=== PATIENT | male | born 1955 | race Caucasian/White ===

== ENCOUNTER 2020-08-28 15:30 | Observation (INO) | payer SELFPAY ==
[2020-08-28] VITALS (11 sets, daily range): BP systolic 151–216; BP diastolic 75–97; PULSE 58–67; RESP 14–18; TEMP 36.4–36.6; O2SAT 95–98; BMI 31.1
--- NOTE | 2020-08-28 15:46 | ED_ITS ---
HPI - General Adult General Chief complaint: Dizziness Stated complaint: dizzy with change of position Time Seen by Provider: 08/28/20 15:45 Source: patient and EMS Mode of arrival: EMS Limitations: no limitations History of Present Illness HPI narrative: 65-year-old gentleman with no significant medical history who has not seen a doctor for a number of years woke up this morning dramatically dizzy to the point he was unable to sit up in bed. He has never had similar episodes. He describes no headache, fevers, chest pain, dyspnea, abdominal pain. He notes no numbness or weakness, has not complained of any cognitive dysfunction and does not have any speech fluency issues. The dizziness progressed to the p oint that he had a couple of episodes of emesis and has gotten slightly worse over the course of the day. Related Data Allergies Allergy/AdvReac Type Severity Reaction Status Date / Time No Known Drug Allergies Allergy Verified 08/28/20 16:49 Review of Systems Review of Systems Narrative: Remainder of complete review of systems is otherwise unremarkable except for that included in the HPI. Patient History Social History Smoking Status: Never smoker Smoking Status: Never smoker alcohol intake frequency: 0-2 drinks per day Alcohol type: hard liquor Exam Narrative Exam Narrative: General: Pale, moderate distress, most comfortable on his left side. Able to give a complete and coherent history. Well-nourished well- developed HEENT: Moist mucous membranes, normal sclera with reactive pupils, slight rotatory nystagmus in all head positions. This is not worsened or alleviated with positional changes Neck: supple Respiratory: Lungs are clear to auscultation, no wheezing no rales no rhonchi. Full and symmetrical air movement Cardiac: Regular rate and rhythm no murmurs no bruits Abdomen: Soft, nontender, good bowel tones, no flank pain Skin: Warm and dry, no rashes Neurologic: Grossly neurologically intact with no obvious asymmetries or abnormalities aside from the nystagmus appreciated above NIH=0 Extremities: No trauma, well perfused Psych: Cooperative, appropriate insight and affect Initial Vital Signs Initial Vital Signs: Vital Signs Temperature 97.8 F 08/28/20 15:33 Pulse Rate 60 08/28/20 15:33 Respiratory Rate 18 08/28/20 15:33 Blood Pressure 202/82 H 08/28/20 15:33 Pulse Oximetry 98 08/28/20 15:33 Course Orders Ordered: ED Orders 08/28/20 15:00 Complete Blood Count AUTO DIFF Stat Comprehensive Metabolic Panel Stat Partial Thromboplastin Time Stat Prothrombin Time INR Stat Troponin & CK Cardiac Panel Stat 08/28/20 15:46 EKG-12 Lead Stat 08/28/20 15:54 CT angio head and neck Stat 08/28/20 15:56 Urinalysis and Microscopic Stat Urine Drug Screen, Rapid Stat EKG-12 Lead Stat 08/28/20 15:58 CT head/brain w con Stat 08/28/20 16:23 COVID19 - ADMIT ([facility] [employer] swab/PCR) Stat 08/28/20 16:42 MR head/brain wo/w con Stat MR stroke Stat Sodium Chloride (Normal Saline 0.9%) 1,000 mls @ 150 mls/hr IV CONT JAYLAN Last Admin: 08/28/20 16:22 Dose: 150 mls/hr Documented by: Discontinued Medications Lorazepam (Lorazepam 2 Mg/Ml Inj) 1 mg IV NOW ONE Stop: 08/28/20 17:01 Ondansetron HCl (Ondansetron 4 Mg/2 Ml Inj) 4 mg IV NOW ONE Stop: 08/28/20 15:57 Last Admin: 08/28/20 16:22 Dose: 4 mg Documented by: Vital Signs Vital signs: Vital Signs - 8 hr 08/28/20 15:33 08/28/20 15:43 08/28/20 16:12 Temperature 97.8 F Pulse Rate 60 58 L 64 Respiratory Rate 18 Blood Pressure 202/82 H Pulse Oximetry 98 96 96 08/28/20 16:13 08/28/20 16:30 Temperature Pulse Rate 65 66 Respiratory Rate 14 Blood Pressure 209/93 H 196/91 H Pulse Oximetry 95 95 Medical Decision Making Medical Records Medical records reviewed: Yes I reviewed the patient's medical records. Lab Data Lab results reviewed: Yes I reviewed the patient's lab results. Result diagrams: 08/28/20 15:00 08/28/20 15:00 Labs: Lab Results 08/28/20 08/28/20 08/28/20 Range/Units 15:00 15:00 15:00 WBC 11.8 H (4.5-11.0) X10^3/uL RBC 5.25 (4.5-5.9) X10^6/uL Hgb 15.4 (13.5-17.5) g/dL Hct 45.7 (41-53) % MCV 87.0 (80-100) fL MCH 29.3 (26-34) PG MCHC 33.7 (30-36) % RDW 13.1 (11.6-14.8) % Plt Count 235 (150-400) X10^3/uL Neut % (Auto) 80.2 H (50-75) % Lymph % (Auto) 13.3 L (25-40) % [place] % (Auto) 5.9 (3-14) % Eos % (Auto) 0.2 L (2-4) % Baso % (Auto) 0.4 (0-2) % Neut # (Auto) 9500 H (7897-1341) /uL Lymph # (Auto) 1600 (5677-8627) /uL [place] # (Auto) 700 (0-900) /uL Eos # (Auto) 0 (0-450) /uL Baso # (Auto) 0 (0-100) /uL PT 10.6 (10.1-12.7) SECONDS INR 0.9 (0.9-1.3) APTT 33 (26.4-36.2) SECONDS Sodium 142 (137-145) mmol/L Potassium 3.9 (3.4-5.1) mmol/L Chloride 106 (98-107) mmol/L Carbon Dioxide 26 (22-32) mmol/L BUN 18 (9-20) mg/dL Creatinine 0.84 (0.66-1.25) mg/dL Estimated GFR > 60.0 (>60) mL/min BUN/Creatinine Ratio 21.4 (6-22) Glucose 115 H (80-110) mg/dL Calcium 9.7 (8.4-10.2) mg/dL Total Bilirubin 0.7 (0.2-1.3) mg/dL AST 37 (17-59) IU/L ALT 26 (<50) IU/L Alkaline Phosphatase 78 (38-126) U/L Total Creatine Kinase 64 (55-170) U/L CK-MB (CK-2) TNP CK-MB (CK-2) Rel Index TNP Troponin I < 0.012 (0.01-0.034) ng/mL Total Protein 7.7 (6.3-8.2) g/dL Albumin 4.3 (3.5-5.0) g/dL Globulin 3.4 (1.7-4.1) g/dL Albumin/Globulin Ratio 1.3 (1.0-2.8) Point of Care Testing Glucose POC 105 Point of care testing: Point of Care Testing Glucose POC [address] angiogram head neck: Radiologist's Impression: FINDINGS: Image quality: Excellent. CSF spaces: Basal cisterns are patent. No extra-axial fluid collections. The ventricles are symmetric in size and shape. Brain: No intracranial bleeds or masses. There is mild cerebral volume loss for age, with resultant ventricular and sulcal prominence. There are mild periventricular and deep white matter chronic small vessel ischemic changes. There is intracranial internal carotid artery atherosclerosis. Skull and face: Calvarium and visualized facial bones appear intact, without suspicious lesions. Sinuses: Visualized sinuses and mastoids are clear. IMPRESSION: 1. No acute intracranial abnormalities. 2. Cerebral volume loss and chronic microvascular ischemic changes. Dictated by: Tad Cronin M.D. on 08/28/2020 at 16:19 FINDINGS: Image quality: Excellent. BRAIN: CSF spaces: Ventricles are normal in size and shape. Basal cisterns are patent. No extra-axial fluid collections. Brain: No midline shift. No intracranial bleeds or masses. Ching-white matter interface appears intact. Skull and face: Calvarium and facial bones appear intact, without suspicious lesions. Orbits appear normal. Sinuses: Sinuses and mastoids are clear. HEAD CT ANGIOGRAPHY: Anterior circulation: Intracranial internal carotid arteries are normal in size and flow. The flow within the paired anterior cerebral arteries is normal and symmetric. The flow within the middle cerebral arteries is normal and symmetric. The anterior communicating artery is seen. No aneurysms are seen. Posterior circulation: The left vertebral artery is diminutive and ends in PICA. The right vertebral artery is widely patent. The basilar artery is widely patent. Flow within the posterior cerebral arteries is normal and symmetric. No aneurysms are seen. NECK CT ANGIOGRAPHY: Carotid system: The great vessels demonstrate a conventional anatomy as they arise from the aortic arch. The origins of the common carotid arteries appear patent. The common carotid arteries demonstrate normal caliber and courses. The bifurcation regions are both widely patent. The internal carotid arteries demonstrate normal calibers and courses. Posterior circulation: The left vertebral artery is diffusely diminutive and ends in PICA. Right vertebral artery is dominant and widely patent. The basilar artery is widely patent. Soft tissues: Visualized neck soft tissues demonstrate no suspicious abnorm alities. There is a 2 cm left thyroid nodule. Bones: No suspicious bony lesions. Visualized cervical spine appears normally aligned. IMPRESSION: 1. No evidence acute stroke, hemorrhage, or mass. 2. Normal variant anatomy in which the left vertebral artery is diminutive and ends in PICA. Otherwise unremarkable CTA head with no evidence of stenosis, aneurysm, occlusion, or focal filling defect. 3. Widely patent internal carotids. Comment: Findings were discussed with Dr. Traylor at the time of study dictation on 08.28.20 at 16:33 hours. Any quantitative measurements of stenosis were performed using NASCET criteria. Dictated by: Nba Garcia M.D. on 08/28/2020 at 16:26 ECG Data Attestation: I personally reviewed and interpreted this ECG as follows: Interpretation: Sinus rhythm at a rate of 60 Left axis deviation, meeting criteria for left ventricular hypertrophy Lateral T-wave inversion J-point elevation secondary to LVH anteriorly No comparison EKGs MDM Narrative Medical decision making narrative: 65-year-old gentleman with no previously diagnosed medical issues presents with severe vertigo upon waking up with significant nystagmus on clinical exam that is not positional. Certainly BP is in the differential however concern for brainstem stroke is my initial consideration. His EKG does have left ventricular hypertrophy with some latera ST changes and presumably he does have a history of the hypertension that has been non diagnosed and untreated. Labs are otherwise reassuring with a normal troponin. Initial CT scan of the head does not show acute bleeding and CTA does not show acute stroke and has a normal variant anatomy with the left vertebral artery being diminutive and ending in the PICA. Findings were reviewed with patient. After fluids and Zofran he still has significant dizziness to the point he is unable to stand up but is not to head rotation. His nystagmus is now more noticeable with his right-sided gaze. Will give him Afrin. Added and see if that helps with more of the vertigo week for addressing the hypertension. With still significant concern for brainstem CVA will admit him to the hospitalist service for additional workup and MRI. Care is reviewed with patient who is amenable. Case is reviewed with Dr. Burnett who accepts the patient. At this time, NIH score is 0, diagnosis remains in question. Patient woke up with symptoms in as well out of the 4 hour time window and is not a tPA candidate Discharge Plan Departure Patient Disposition: Home Clinical Impression: Brainstem stroke, Vertigo Hypertension Qualifiers: Hypertension type: unspecified Qualified Code(s): I10 - Essential (primary) hypertension
--- NOTE | 2020-08-28 15:54 | DI.CT.S_ITS ---
PROCEDURE: CT ANGIO HEAD AND NECK INDICATIONS: severe dizziness with nystagmus, ? stroke. Wake up TECHNIQUE: After the administration of intravenous contrast, 1 mm thick sections acquired from the aortic arch through the [place]. Post-contrast 4.5 mm thick sections then re-acquired from the foramen magnum to the vertex. 3-dimensional ibdhnna-mgfdgotpj-dfvigtpdfp (MIP) and/or volume rendering reformats were acquired of the central intracranial vasculature and neck separately. COMPARISON: [facility], CT, CT HEAD/BRAIN WO CON, 08/28/2020, 16:04. FINDINGS: Image quality: Excellent. BRAIN: CSF spaces: Ventricles are normal in size and shape. Basal cisterns are patent. No extra-axial fluid collections. Brain: No midline shift. No intracranial bleeds or masses. Ching-white matter interface appears intact. Skull and face: Calvarium and facial bones appear intact, without suspicious lesions. Orbits appear normal. Sinuses: Sinuses and mastoids are clear. HEAD CT ANGIOGRAPHY: Anterior circulation: Intracranial internal carotid arteries are normal in size and flow. The flow within the paired anterior cerebral arteries is normal and symmetric. The flow within the middle cerebral arteries is normal and symmetric. The anterior communicating artery is seen. No aneurysms are seen. Posterior circulation: The left vertebral artery is diminutive and ends in PICA. The right vertebral artery is widely patent. The basilar artery is widely patent. Flow within the posterior cerebral arteries is normal and symmetric. No aneurysms are seen. NECK CT ANGIOGRAPHY: Carotid system: The great vessels demonstrate a conventional anatomy as they arise from the aortic arch. The origins of the common carotid arteries appear patent. The common carotid arteries demonstrate normal caliber and courses. The bifurcation regions are both widely patent. The internal carotid arteries demonstrate normal calibers and courses. Posterior circulation: The left vertebral artery is diffusely diminutive and ends in PICA. Right vertebral artery is dominant and widely patent. The basilar artery is widely patent. Soft tissues: Visualized neck soft tissues demonstrate no suspicious abnormalities. There is a 2 cm left thyroid nodule. Bones: No suspicious bony lesions. Visualized cervical spine appears normally aligned. IMPRESSION: 1. No evidence acute stroke, hemorrhage, or mass. 2. Normal variant anatomy in which the left vertebral artery is diminutive and ends in PICA. Otherwise unremarkable CTA head with no evidence of stenosis, aneurysm, occlusion, or focal filling defect. 3. Widely patent internal carotids. Comment: Findings were discussed with Dr. Traylor at the time of study dictation on 08.28.20 at 16:33 hours. Any quantitative measurements of stenosis were performed using NASCET criteria. Dictated by: Nba Garcia M.D. on 08/28/2020 at 16:26 Approved by: Nba Garcia M.D. on 08/28/2020 at 16:41
--- NOTE | 2020-08-28 15:58 | DI.CT.S_ITS ---
PROCEDURE: CT HEAD/BRAIN WO CON INDICATIONS: ? wake up stroke TECHNIQUE: Noncontrast 4.5 mm thick angled axial sections acquired from the foramen magnum to the vertex, with coronal and sagittal reformats. For radiation dose reduction, the following was used: automated exposure control, adjustment of mA and/or kV according to patient size. COMPARISON: None. FINDINGS: Image quality: Excellent. CSF spaces: Basal cisterns are patent. No extra-axial fluid collections. The ventricles are symmetric in size and shape. Brain: No intracranial bleeds or masses. There is mild cerebral volume loss for age, with resultant ventricular and sulcal prominence. There are mild periventricular and deep white matter chronic small vessel ischemic changes. There is intracranial internal carotid artery atherosclerosis. Skull and face: Calvarium and visualized facial bones appear intact, without suspicious lesions. Sinuses: Visualized sinuses and mastoids are clear. IMPRESSION: 1. No acute intracranial abnormalities. 2. Cerebral volume loss and chronic microvascular ischemic changes. Dictated by: Tad Cronin M.D. on 08/28/2020 at 16:19 Approved by: Tad Cronin M.D. on 08/28/2020 at 16:21
[2020-08-28 16:06] LABS: INR 0.9 (0.9-1.3); Prothrombin Time 10.6 SECONDS (10.1-12.7)
[2020-08-28 16:08] LABS: PTT Partial Thromboplastin Tim 33 SECONDS (26.4-36.2)
[2020-08-28 16:09] LABS: Add Manual Diff / Slide Review NO; Basophils Absolute Auto 0 /uL (0-100); Basophils Percent Auto 0.4 % (0-2); Eosinophils Absolute Auto 0 /uL (0-450); Eosinophils Percent Auto 0.2 % (2-4); Hematocrit 45.7 % (41-53); Hemoglobin 15.4 g/dL (13.5-17.5); Lymphocytes Absolute Auto 1600 /uL (1100-4500); Lymphocytes Percent Auto 13.3 % (25-40); Mean Corpuscular HGB Conc 33.7 % (30-36); Mean Corpuscular Hemoglobin 29.3 PG (26-34); Monocytes Absolute Auto 700 /uL (0-900); Monocytes Percent Auto 5.9 % (3-14); Neutrophils Absolute Auto 9500 /uL (1500-7000); Neutrophils Percent Auto 80.2 % (50-75); Platelet Count 235 X10^3/uL (150-400); Red Blood Cell Count 5.25 X10^6/uL (4.5-5.9); Red Cell Distribution Width 13.1 % (11.6-14.8); White Blood Cell Count 11.8 X10^3/uL (4.5-11.0)
[2020-08-28] MEDS: SODIUM CHLORIDE 0.9% 1,000 ML 150 ML IV (16:22)
[2020-08-28] MEDS: ONDANSETRON 4 MG/2 ML INJ IV (16:22)
[2020-08-28 16:24] LABS: Alanine Aminotransferase 26 IU/L (<50); Albumin 4.3 g/dL (3.5-5.0); Albumin Globulin Ratio 1.3 (1.0-2.8); Alkaline Phosphatase 78 U/L (38-126); Aspartate Aminotransferase 37 IU/L (17-59); BUN Creatinine Ratio 21.4 (6-22); Bilirubin Total 0.7 mg/dL (0.2-1.3); Blood Urea Nitrogen 18 mg/dL (9-20); Calcium 9.7 mg/dL (8.4-10.2); Carbon Dioxide 26 mmol/L (22-32); Chloride 106 mmol/L (98-107); Creatine Kinase 64 U/L (55-170); Estimated Glomerular Filt Rate > 60.0 mL/min (>60); Globulin 3.4 g/dL (1.7-4.1); Glucose 115 mg/dL (80-110); HEMOLYSIS 20 (0-50); Potassium 3.9 mmol/L (3.4-5.1); Sodium 142 mmol/L (137-145); Total Protein 7.7 g/dL (6.3-8.2)
[2020-08-28 16:36] LABS: Troponin I < 0.012 ng/mL (0.01-0.034)
[2020-08-28] MEDS: LORazepam 2 MG/ML INJ 1 MG IV (17:16)
[2020-08-28] MEDS: ASPIRIN 81 MG CHEW TAB 324 MG PO (17:19)
[2020-08-28 17:22] LABS: COVID19 - ADMIT (NP swab/PCR) Negative (Negative)
[2020-08-28] MEDS: SODIUM CHLORIDE 0.9% FLUSH 10 ML IV (18:43)
[2020-08-28] MEDS: LABETALOL 100 MG TABLET PO (18:43)
--- NOTE | 2020-08-28 19:03 | PC.NURSE ---
Addendum entered by Roxanne Cornejo R.N. 08/28/20 22:41: Pt turns self independently in bed. Declines offers for foods or fluids, but continues to deny nausea or dizziness. Respiratory swab obtained as well as urine sent for UA. After discussion with pt and answering questions as appropriate, pt refuses statin preferring to await lipid panel in a.m. Addendum entered by Roxanne Cornejo R.N. 08/28/20 20:06: ARABELLA Clark in to see patient. Original Note: 1740: Pt to room 220 from E.R. awake, alert, appropriately conversant. Able to slide self from stretcher to bed and denies dizziness with this movement. Able to turn head and continues to deny dizziness. Prefers left side lying position when in bed. Denies nausea. Provided with clear liquids. Tele placed as per MD order. Instructed pt not to attempt OOB without calling for assistance d/t dizziness. Pt acknowledges understanding. Awaiting void for UAC and pt was informed. Oriented to call light. Warm blanket for comfort. Pt refuses gown and prefers own pj pants to remain on. Denies any skin issues.
[2020-08-28 20:50] LABS: Hemoglobin A1C% w Est Avg Glu 5.1 % (4.0-6.0)
[2020-08-28 21:00] LABS: Procalcitonin 0.05 ng/mL (<0.5)
[2020-08-28 21:09] LABS: Bacteria Urine None Seen; WBC Urine None Seen (0-5/HPF)
[2020-08-28 21:10] LABS: Appearance Urine UA CLEAR; Bilirubin Urine UA NEGATIVE (NEGATIVE); Color Urine UA YELLOW; Glucose Urine UA NEGATIVE (Negative); Ketones Urine UA TRACE (NEGATIVE); Leukocyte Esterase Urine UA NEGATIVE (NEGATIVE); Nitrite Urine UA NEGATIVE (Negative); Occult Blood Urine UA TRACE-INTACT (Negative); Protein Urine UA NEGATIVE (Negative); Specific Gravity Urine UA 1.015 (1.000-1.035); Urobilinogen Urine UA 0.2 E.U./dL (0.2); pH Urine UA 6.5 (4.5-8.0)
[2020-08-28 21:10] LABS: Ur Creatinine 20 (Normal); Ur Specific Gravity 1.015 (Normal); Urine pH 5 (Normal)
[2020-08-28 21:11] LABS: UR Morphine/Opiate cutoff 300 Negative (Negative); Urine Amphetamines Negative (Negative); Urine Barbiturates Negative (Negative); Urine Benzodiazepines Negative (Negative); Urine Cocaine Negative (Negative); Urine MDMA Negative (Negative); Urine Methadone Negative (Negative); Urine Methamphetamines Negative (Negative); Urine Oxycodone Negative (Negative); Urine Phencyclidine Negative (Negative); Urine Tetrahydrocannabinol Negative (Negative); Urine Tricyclic Antidepressant Negative (Negative)
[2020-08-28 21:31] LABS: Culture Indicated Urine Cult Not Indicated; RBC Urine 1-5/HPF (0-5/HPF)
[2020-08-28 22:23] LABS: Adenovirus Not Detected (Not Detect); B. parapertussis Not Detected (Not Detecte); Bordetella pertussis Not Detected (Not Detecte); Chlamydophila pneumoniae Not Detected (Not Detect); Coronavirus 229E Not Detected (Not Detect); Coronavirus HKU1 Not Detected (Not Detect); Coronavirus NL 63 Not Detected (Not Detect); Coronavirus OC43 Not Detected (Not Detect); Human Metapneumovirus Not Detected (Not Detect); Human Rhinovirus/Enterovirus Not Detected (Not Detect); Influenza A Not Detected (Not Detect); Influenza B Not Detected (Not Detect); Mycoplasma pneumoniae Not Detected (Not Detect); Parainfluenza Virus 1 Not Detected (Not Detect); Parainfluenza Virus 2 Not Detected (Not Detect); Parainfluenza Virus 3 Not Detected (Not Detect); Parainfluenza Virus 4 Not Detected (Not Detect); Respiratory Syncytial Virus Not Detected (Not Detect); SARS- CoV-2 Not Detected (Not Detecte)
[2020-08-29] VITALS (8 sets, daily range): BP systolic 138–186; BP diastolic 64–92; PULSE 58–71; RESP 16–18; TEMP 36.6–37.1; O2SAT 93–96
--- NOTE | 2020-08-29 | DI.MRI.S_ITS ---
PROCEDURE: MR STROKE Pre- and post-contrast brain MRI, non-contrast brain MR angiogram, pre- and postcontrast neck MR angiogram INDICATIONS: concern for brain stem stroke TECHNIQUE: Brain: Noncontrast axial T1 spin echo, axial T2 fast spin echo, sagittal and axial FLAIR, coronal T2 fast spin echo, axial gradient echo, axial diffusion and ADC through the brain. After the administration of contrast, axial 3D VIBE of the cranial vasculature and brain. Brain MRA: Non-contrast 3-D time of flight MR angiogram, with multiple gnkmaqd-vsmidmxjj-izzcnouxrf (MIP) reformats performed. Neck MRA: Axial and sagittal TruFISP through the neck. Coronal dynamic MR angiogram during administration of contrast in the arterial and venous phases, with 3-dimenstional rugvyss-xpdupfvqr-sorlqcubiq (MIP) reformats constructed from subtraction images. COMPARISON: [facility], CT, CT ANGIO HEAD AND NECK, 08/28/2020, 16:04. [facility], CT, CT HEAD/BRAIN WO CON, 08/28/2020, 16:04. FINDINGS: Image quality: Excellent. BRAIN: CSF spaces: There is ventricles are normal in size. Basal cisterns are patent. No extra-axial fluid collections. Brain: Diffusion weighted images demonstrate no acute infarcts. No intracranial hemorrhage, mass, or mass effect. Brainstem appears normal. Normal intravascular flow voids are present. No abnormal intracranial enhancement. Skull and face: Calvarial marrow signal is normal. Orbits appear normal. Sinuses: Sinuses and mastoids are clear. BRAIN MR ANGIOGRAM: Anterior circulation: Intracranial internal carotid arteries are normal in size and patent bilaterally. The flow within the paired anterior cerebral arteries is symmetric and patent bilaterally. The flow within the middle cerebral arteries is symmetric and patent bilaterally. The anterior communicating artery is patent. No high-grade stenoses, occlusions, or aneurysms. Posterior circulation: The visualized portions of the vertebral arteries are patent. There is a right dominant vertebrobasilar system with a diminutive left basilar artery. The left vertebral terminates in a posterior inferior cerebellar cerebellar artery. The basilar artery is supplied by the right vertebral artery. The flow within the posterior cerebral arteries is symmetric and patent bilaterally. No high-grade stenoses, occlusions, or aneurysms. NECK MR ANGIOGRAM: Carotids: Great vessels demonstrate conventional anatomy as they arise from the aortic arch. The origins of the common carotid arteries appear patent. The calibers and courses of both common carotid arteries are normal. The carotid bulbs appear widely patent. The internal carotid arteries demonstrate normal course and caliber. Posterior circulation: The origins of the vertebral arteries appear patent. More superior portions of both vertebral arteries demonstrate normal course and caliber, and join to form a normal appearing basilar artery. Miscellaneous: Subclavian arteries appear patent. Pre-contrast images through the neck demonstrate no soft tissue abnormalities. IMPRESSION: BRAIN MRI: 1. No evidence of infarct or other acute intracranial abnormality. BRAIN MR ANGIOGRAM: 1. No high-grade stenosis or occlusion of the central intracranial arteries. NECK MR ANGIOGRAM: 1. No high-grade stenosis or occlusion of the head and neck arteries. The carotid bulbs are widely patent. 2. Diminutive left vertebral artery terminating in a posterior inferior cerebellar artery consistent with an anatomic variant redemonstrated. Dictated by: Cole Briceno M.D. on 08/29/2020 at 10:50 Approved by: Cole Briceno M.D. on 08/29/2020 at 11:17
--- NOTE | 2020-08-29 01:02 | PM.HP.1 ---
History of Present Illness History of Present Illness Date Patient Seen: 08/28/20 Time Patient Seen: 20:00 Chief complaint: dizzy with change of position Narrative: Sheldon Collado is a 65 y.o. male with no documented medical history presented to the ED after having awoken with severe enough dizziness that he could not stand up. He states that he got up early in the morning and felt dizzy and then went back to bed and continued to feel dizzy and nauseous he states that he vomited several times and has had little bit of diarrhea as well did state that he was sweaty and shaky. The emergency room they performed a CT scan and it was negative for any acute intracranial process. Upon presentation to the emergency department he was afebrile, his blood pressure was 202/82, at that time his heart rate was 60, oxygen saturation of 96% on room air with a respiratory rate of 17. He weighs 105.8 kg with a BMI of 31.1. WBC is slightly elevated at 11.8 with a mild left shift of 9500, glucose was 115 however his A1c is 5.1 the rest of his chemistries were unremarkable, procalcitonin was negative, viral PCR panel and COVID-19 were also negative. Patient History Surgical History No significant past surgical history Family & Social History Family History (Updated 08/29/20 @ 01:18 by ARABELLA Ulloa) Grandfather Myocardial infarction Mother Digestive system disease Father Old age Social History: household members children Prior Living Arrangements House Safety & Behavioral: Feels Safe in Current Yes Environment Been Physically Hurt or No Threatened By a Person Suicidal Ideation Description None Suicide Plan Description No Plan Tobacco & Substance use: Smoking Status Never smoker alcohol intake current alcohol intake frequency 0-2 drinks per day Substance Use Type does not use Meds Home Medications and Allergies Allergies Allergy/AdvReac Type Severity Reaction Status Date / Time No Known Drug Allergies Allergy Verified 08/28/20 16:49 Review of Systems Review of Systems Narrative: He denied nasal congestion, cough, sore throat, difficulty speaking, shortness of breath, chest pain, dysuria, numbing or tingling of the upper lower extremities. Exam Vital Signs (past 8 hours): - 08/28/20 17:31 08/28/20 18:05 08/28/20 18:08 Temperature 97.5 F L 97.9 F Pulse Rate 66 60 Respiratory Rate 16 18 Blood Pressure 216/97 H 151/75 H Pulse Oximetry 97 95 95 08/28/20 18:43 08/28/20 20:17 08/29/20 00:32 Temperature 98.3 F Pulse Rate 60 64 71 Respiratory Rate 17 Blood Pressure 151/75 H 167/79 H 138/69 Pulse Oximetry 96 08/29/20 00:39 Temperature Pulse Rate Respiratory Rate Blood Pressure Pulse Oximetry 96 Oxygen Delivery Method Room Air Oxygen Flow Rate 0 Narrative Exam Narrative: Gen: Alert, oriented, well-developed 65 y.o. male, NAD HEENT: normocephalic, atraumatic, conjunctiva clear, sclera non-icteric, oral mucosa pink and moist Neck: supple, full ROM, no JVD, trachea is midline Resp: Lungs CTA, non-labored breathing CV: RRR, no murmur or rubs Abd: soft, non-tender, normoactive BTs Skin: no lesions or rashes, dry and intact Neuro: Alert and oriented X 4 w/no focal deficits. Speech clear and coherent with no facial droop or flattened labial fold Extremities: moves all 4 extremities, is ambulatory, negative Helga?s sign Psyche: normal mood and affect. Objective Labs Result Diagrams: 08/28/20 15:00 08/28/20 15:00 Labs: Laboratory Results - last 24 hr 08/28/20 08/28/20 08/28/20 15:00 15:00 15:00 WBC 11.8 H RBC 5.25 Hgb 15.4 Hct 45.7 MCV 87.0 MCH 29.3 MCHC 33.7 RDW 13.1 Plt Count 235 Neut % (Auto) 80.2 H Lymph % (Auto) 13.3 L [place] % (Auto) 5.9 Eos % (Auto) 0.2 L Baso % (Auto) 0.4 Neut # (Auto) 9500 H Lymph # (Auto) 1600 [place] # (Auto) 700 Eos # (Auto) 0 Baso # (Auto) 0 PT 10.6 INR 0.9 APTT 33 Sodium 142 Potassium 3.9 Chloride 106 Carbon Dioxide 26 BUN 18 Creatinine 0.84 Estimated GFR > 60.0 BUN/Creatinine Ratio 21.4 Glucose 115 H Hemoglobin A1c Calcium 9.7 Total Bilirubin 0.7 AST 37 ALT 26 Alkaline Phosphatase 78 Total Creatine Kinase 64 CK-MB (CK-2) TNP CK-MB (CK-2) Rel Index TNP Troponin I < 0.012 Total Protein 7.7 Albumin 4.3 Globulin 3.4 Albumin/Globulin Ratio 1.3 Procalcitonin Urine Color Urine Appearance Urine pH Ur Specific [place] Urine Protein Urine Glucose (UA) Urine Ketones Urine Occult Blood Urine Nitrate Urine Bilirubin Urine Urobilinogen Ur Leukocyte Esterase Urine RBC Urine WBC Urine Bacteria Ur Culture Indicated? U Opiates 300ng/mL cut Ur Oxycodone Screen Urine Methadone Screen Ur Barbiturates Screen U Tricyclic Antidepress Ur Phencyclidine Scrn Ur Amphetamines Screen U Methamphetamines Scrn Ur MDMA Scrn (Ecstasy) U Benzodiazepines Scrn Urine Cocaine Screen U Marijuana (THC) Screen Chlamy pneumoniae PCR Adenovirus (PCR) B. pertussis DNA (PCR) B.parapertussis DNA PCR Coronavirus OC43 (PCR) Coronavirus HKU1 (PCR) Coronavirus 229E (PCR) SARS-CoV-2 (PCR) Coronavirus NL63 (PCR) Human Metapneumovir PCR Influenza Type A (PCR) Influenza Type B (PCR) M. pneumoniae (PCR) Parainfluenza 1 (PCR) Parainfluenza 2 (PCR) Parainfluenza 3 (PCR) Parainfluenza 4 (PCR) RSV (PCR) Entero/Rhino (PCR) 08/28/20 08/28/20 08/28/20 15:00 15:00 16:23 WBC RBC Hgb Hct MCV MCH MCHC RDW Plt Count Neut % (Auto) Lymph % (Auto) [place] % (Auto) Eos % (Auto) Baso % (Auto) Neut # (Auto) Lymph # (Auto) [place] # (Auto) Eos # (Auto) Baso # (Auto) PT INR APTT Sodium Potassium Chloride Carbon Dioxide BUN Creatinine Estimated GFR BUN/Creatinine Ratio Glucose Hemoglobin A1c 5.1 Calcium Total Bilirubin AST ALT Alkaline Phosphatase Total Creatine Kinase CK-MB (CK-2) CK-MB (CK-2) Rel Index Troponin I Total Protein Albumin Globulin Albumin/Globulin Ratio Procalcitonin 0.05 Urine Color Urine Appearance Urine pH Ur Specific [place] Urine Protein Urine Glucose (UA) Urine Ketones Urine Occult Blood Urine Nitrate Urine Bilirubin Urine Urobilinogen Ur Leukocyte Esterase Urine RBC Urine WBC Urine Bacteria Ur Culture Indicated? U Opiates 300ng/mL cut Ur Oxycodone Screen Urine Methadone Screen Ur Barbiturates Screen U Tricyclic Antidepress Ur Phencyclidine Scrn Ur Amphetamines Screen U Methamphetamines Scrn Ur MDMA Scrn (Ecstasy) U Benzodiazepines Scrn Urine Cocaine Screen U Marijuana (THC) Screen Chlamy pneumoniae PCR Adenovirus (PCR) B. pertussis DNA (PCR) B.parapertussis DNA PCR Coronavirus OC43 (PCR) Coronavirus HKU1 (PCR) Coronavirus 229E (PCR) SARS-CoV-2 (PCR) Negative Coronavirus NL63 (PCR) Human Metapneumovir PCR Influenza Type A (PCR) Influenza Type B (PCR) M. pneumoniae (PCR) Parainfluenza 1 (PCR) Parainfluenza 2 (PCR) Parainfluenza 3 (PCR) Parainfluenza 4 (PCR) RSV (PCR) Entero/Rhino (PCR) 08/28/20 08/28/20 08/28/20 21:02 21:08 21:23 WBC RBC Hgb Hct MCV MCH MCHC RDW Plt Count Neut % (Auto) Lymph % (Auto) [place] % (Auto) Eos % (Auto) Baso % (Auto) Neut # (Auto) Lymph # (Auto) [place] # (Auto) Eos # (Auto) Baso # (Auto) PT INR APTT Sodium Potassium Chloride Carbon Dioxide BUN Creatinine Estimated GFR BUN/Creatinine Ratio Glucose Hemoglobin A1c Calcium Total Bilirubin AST ALT Alkaline Phosphatase Total Creatine Kinase CK-MB (CK-2) CK-MB (CK-2) Rel Index Troponin I Total Protein Albumin Globulin Albumin/Globulin Ratio Procalcitonin Urine Color Yellow Urine Appearance Clear Urine pH 6.5 Ur Specific [place] 1.015 Urine Protein Negative Urine Glucose (UA) Negative Urine Ketones Trace H Urine Occult Blood Trace-intact Urine Nitrate Negative Urine Bilirubin Negative Urine Urobilinogen 0.2 Ur Leukocyte Esterase Negative Urine RBC 1-5/hpf Urine WBC None seen Urine Bacteria None seen Ur Culture Indicated? Cult not indicated U Opiates 300ng/mL cut Negative Ur Oxycodone Screen Negative Urine Methadone Screen Negative Ur Barbiturates Screen Negative U Tricyclic Antidepress Negative Ur Phencyclidine Scrn Negative Ur Amphetamines Screen Negative U Methamphetamines Scrn Negative Ur MDMA Scrn (Ecstasy) Negative U Benzodiazepines Scrn Negative Urine Cocaine Screen Negative U Marijuana (THC) Screen Negative Chlamy pneumoniae PCR Not detected Adenovirus (PCR) Not detected B. pertussis DNA (PCR) Not detected B.parapertussis DNA PCR Not detected Coronavirus OC43 (PCR) Not detected Coronavirus HKU1 (PCR) Not detected Coronavirus 229E (PCR) Not detected SARS-CoV-2 (PCR) Not detected Coronavirus NL63 (PCR) Not detected Human Metapneumovir PCR Not detected Influenza Type A (PCR) Not detected Influenza Type B (PCR) Not detected M. pneumoniae (PCR) Not detected Parainfluenza 1 (PCR) Not detected Parainfluenza 2 (PCR) Not detected Parainfluenza 3 (PCR) Not detected Parainfluenza 4 (PCR) Not detected RSV (PCR) Not detected Entero/Rhino (PCR) Not detected Assessment & Plan Assessment & Plan narrative: Sheldon Collado is placed in observation for cardiac monitoring and undergoing MRI imaging on 08/29 to rule out a cerebellar CVA. Suspected TIA versus stroke, acute, present on admission -Cardiac telemetry -NIH score greater than 5 no -NIH scoring and neuro checks q 4 hours -Dual antiplatelet therapy: Yes initiate clopidogrel 75 mg p.o. daily and aspirin 81 mg p.o. daily -MR stroke scheduled for 08/29 -PT/OT/ST evaluation Hypertension, acute with an admission bp of 202/82, present on admission -Allow for permissive hypertension of 220/110 HR 60 to allow for brain perfusion HLD -Lipid panel, pending -Atorvastatin 40 mg po at bedtime Benign paroxsymal positional vertigo -orthostatic vitals q shift -Meclazine 25 mg po q 6 hours as needed for symptoms Risk stratification -Fasting lipid panel pending for the morning -A1c 5.1% VTE prophylaxis: Wells risk score: 0 Enoxaparin 40 mg subQ daily Consults: none Patient is observation status as his stay is not likely to exceed 2 midnights. FEN: saline lock, heart healty diet, BMP and magnesium in the am. Dispo: probable discharge to home Code Status: full code as discussed with patient Scores Wells' Criteria for PE Clinical signs and symptoms of DVT: No PE is #1 Dx or equally likely: No Heart rate > 100: No Immobilization at least 3 days or surg in previous 4 weeks: No History of PE or DVT: No Hemoptysis: No Malignancy w/Treatment within 6 months or palliative: No Wells' PE Score total: 0 Quality VTE Deep Vein Thrombosis/Pulmonary Embolism Present on Admission: No MIPS - Admit I confirm the patient?s Advance Care Plan is present, Code status is documented, Surrogate decision maker is in patient?s record [If Yes, STOP here]: Yes
[2020-08-29 01:38] LABS: TSH w/ Reflex to FT4 0.82 uIU/mL (0.47-4.68)
[2020-08-29 05:27] LABS: Add Manual Diff / Slide Review NO; Basophils Absolute Auto 0 /uL (0-100); Basophils Percent Auto 0.5 % (0-2); Eosinophils Absolute Auto 100 /uL (0-450); Eosinophils Percent Auto 1.4 % (2-4); Hematocrit 38.8 % (41-53); Hemoglobin 13.1 g/dL (13.5-17.5); Lymphocytes Absolute Auto 1400 /uL (1100-4500); Lymphocytes Percent Auto 17.3 % (25-40); Mean Corpuscular HGB Conc 33.9 % (30-36); Mean Corpuscular Hemoglobin 29.2 PG (26-34); Mean Corpuscular Volume 86.3 fL (80-100); Monocytes Absolute Auto 700 /uL (0-900); Monocytes Percent Auto 8.2 % (3-14); Neutrophils Absolute Auto 6000 /uL (1500-7000); Neutrophils Percent Auto 72.6 % (50-75); Platelet Count 182 X10^3/uL (150-400); Red Blood Cell Count 4.49 X10^6/uL (4.5-5.9); White Blood Cell Count 8.2 X10^3/uL (4.5-11.0)
[2020-08-29 05:30] LABS: BUN Creatinine Ratio 17.9 (6-22); Blood Urea Nitrogen 17 mg/dL (9-20); Carbon Dioxide 29 mmol/L (22-32); Chloride 106 mmol/L (98-107); Cholesterol 229 mg/dL (140-199); Estimated Glomerular Filt Rate > 60.0 mL/min (>60); Glucose 90 mg/dL (80-110); HDL Cholesterol 44 mg/dL (40-60); HEMOLYSIS < 15 (0-50); LDL Cholesterol Calculated 154 mg/dL (<100); Magnesium 1.8 mg/dL (1.6-2.3); Potassium 3.6 mmol/L (3.4-5.1); Sodium 140 mmol/L (137-145); Triglycerides 157 mg/dL (35-150)
[2020-08-29] MEDS: CLOPIDOGREL 75 MG TABLET PO (08:24)
[2020-08-29] MEDS: ENOXAPARIN 40 MG/0.4 ML SYRINGE SUBCUT (08:24)
--- NOTE | 2020-08-29 08:49 | PC.NURSE ---
Patient is alert and oriented x3, he is complaining of dizziness and having no other symptoms of possible tia/ or cva. Patient is scheduled for MRI around 1020.
--- NOTE | 2020-08-29 09:31 | OT.IP.EVAL ---
Surgical History (Last Reviewed 08/29/20 @ 01:09 by ARABELLA Ulloa) No significant past surgical history Occupational Therapy Inpatient Evaluation/Re-Eval M1 PT/OT-IP Prior Functional Status Start: 08/29/20 12:12 Freq: NEEDED Status: Active Protocol: Document 08/29/20 09:40 AB (Rec: 08/29/20 12:51 AB [id number]) Medical Review Prior Functional Status Medical History Reviewed Yes Communication able to make needs known Mobility and Gait pt stated that he is independent with all mobilities and ambulation without AD Social History Living Arrangements House Number of Floors (Floors) One Floor Number of Stairs To Enter/Railing? 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 Social History Household Members children Living Arrangements House Number of Floors (Floors) One Floor Number of Stairs To Enter/Railing? 3 steps and no rails to enter. Home Environment Standard Height Toilet,Tub/ Shower Doors Additional Social History Comment Pt states lives alone. M2 OT-IP Current Condition Start: 08/29/20 12:48 Freq: Status: Active Protocol: Document 08/29/20 12:48 [facility] (Rec: 08/29/20 13:11 [facility] [id number]) Occupational Therapy Current Condition Current Condition Evaluation Date 08/29/20 Treatment Diagnosis Dizziness Diagnosis Onset Date 08/28/20 M3 OT- IP Subjective and Pain Start: 08/29/20 12:48 Freq: Status: Active Protocol: Document 08/29/20 12:48 [facility] (Rec: 08/29/20 13:11 [facility] [id number]) OT- Subjective Occupational Therapy Visit Type Type Initial Evaluation Visit Start Time 09:00 Visit Stop Time 09:31 Total Visit Minutes 31 Occupational Therapy Visit Comments Patient Comments Pt just getting orthrostatic readings with nursing aid and getting back to bed and awaiting going to [facility] and willing to do OT eval. Patient/Caregiver Goals TO go home. OT Pain Assessment Pain When Pain Assessed At Rest Pain Present Pain Present Denied Pain M4 OT- IP ADL's Start: 08/29/20 12:48 Freq: Status: Active Protocol: Document 08/29/20 12:48 [facility] (Rec: 08/29/20 13:11 [facility] [id number]) OT [id number] Comments OT Self-Feeding Comments Not at meal time. OT ADL-Grooming Comments OT Grooming Comments Pt not wanting to do at this time. OT ADL-Dressing Comments OT Dressing Comments Pt to dizzy to try at this time. OT ADL-Bathing Comments OT Bathing Comments To attempt tomorrow if pt still here. M5 OT- IP IADL's Start: 08/29/20 12:48 Freq: Status: Active Protocol: Document 08/29/20 12:48 [facility] (Rec: 08/29/20 13:11 [facility] [id number]) OT-Instrumental Activities of Daily Living Home Safety Awareness Awareness of Need for Assistance at Home Good Awareness Ability to Problem Solve Emergency Able to Problem Solve Situations Medication Management Medication Management No Deficits Identified Money Management Money Management No Deficits Identified Meal Preparation Meal Preparation Comments Pending if dizziness resolves, pt may need to have assist for IADL needs. Driving Driving Comments Pt aware that he will not drive if he is dizzy. M6 OT- IP Functional Cognition Start: 08/29/20 12:48 Freq: Status: Active Protocol: Document 08/29/20 12:48 [facility] (Rec: 08/29/20 13:11 [facility] [id number]) Cognitive Factors Limiting Selfcare Function Cognitive Ability Level of Alertness Alert Patient Orientation Name,Age,Birthday,Month,Date, Year,Day of Week,Place, Situation Attention Span Ability Capable of Focused Attention, Capable of Sustained Attention Ability to Follow Commands Able to Follow One Step Commands Memory Description Short Term Impaired Cognitive Tests SLUMS Pt scored 26/30 which in normal for pt's level of education. Pt able to recall 3 /5 objects after time passed and able to answer 2/4 questions after time passed. Cognitive Comments Cognitive Assessment Comments Pt states feels dizzy when trying to think. Otherwise pt feel that he is at his baseline for cognitive needs. However pt not able to recall the name of the hospital and has lived here since 2002. Pt' s head CT report did states pt has chronic microvascular ischemic changes. OT- Vision and Hearing OT- Hearing Assessment OT- Hearing Assessment WFL OT- Vision Assessment Visual Attentiveness WFL Occular Pursuits WFL Visual Convergence WFL Visual [place] WFL Diplopia Absent Vision Assessment Comments Pt states has glasses to see far but not here in the hospital. Per pt eye movements do not cause his dizziness, however sudden movement cause him to be dizzy. M7 OT- IP Mobility and Balance Start: 08/29/20 12:48 Freq: Status: Active Protocol: Document 08/29/20 12:48 [facility] (Rec: 08/29/20 13:11 [facility] [id number]) OT- Bed Mobility Assessment Sit to Supine Sit to Supine Assist Standby Assistance OT-Transfer Assessment Sit to and From Stand Sit to and from Stand Standby Assistance,Contact Guard Assistance Comments Mobility Comments CGA to SBA as dizzy and increased time for bed mobility needs at this time. OT- Gait Assessment Comments Gait Ability Comments Pt not wanting to get up as to dizzy to try and awaiting to have MRI completed. M8 OT- IP Objective Assessments Start: 08/29/20 12:48 Freq: Status: Active Protocol: Document 08/29/20 12:48 [facility] (Rec: 08/29/20 13:11 [facility] [id number]) OT Gross Range of Motion Upper Extremity Range of Motion Assessment Within Functional Limits OT Strength Upper Extremity Strength Assessment Within Functional Limits OT- Coordination Assessment Comments Coordination Comments Both right and left index fingers slightly off. OT-Muscle Tone Assessment Muscle Tone WNL Yes OT Sensation Assessment Comments Summary Comments Intact for sensation , kinesthesia, and proprioception. M9 OT- IP Assessment and Plan Start: 08/29/20 12:48 Freq: Status: Active Protocol: Document 08/29/20 12:48 [facility] (Rec: 08/29/20 13:11 [facility] [id number]) OT Summary Assessment and Plan Potential Rehabilitation Potential Good Analytic Complexity at Evaluation Moderate Summary OT Impairments Balance,Functional Mobility, Grooming,Dressing,Toileting, Bathing,Toilet Transfers, Shower Transfers Progress Towards Goals Slow Progress due to Medical Issues Assessment Summary Pt MOD complexity due to sudden onset of dizziness which in limiting his independence for needs at this time. Pending resolution of medical needs, pt may need to have assist at home to assist with needs. Per PT note, PT to do vestibular eval with pt in PM. Goals Self-Feeding Goal Independent Grooming Goal Independent Dressing Goal Independent Toileting Goal Independent Bathing Goal Independent Toilet Transfer Goal Independent Shower Transfer Goal Independent Days to Meet Goals 5 Frequency of Treatment Frequency Of Treatment Once a Day Treatment Plan OT Treatment Plan ADL Training,Functional Mobility,Patient/Family Education,Discharge Planning Other Treatment Recommendations and Next shower Treatment Focus Discharge Recommendations OT Discharge Recommendations Home with Assistance Home Equipment Needs shower chair Transportation Needs at Discharge Private Vehicle
--- NOTE | 2020-08-29 09:34 | PC.NURSE ---
Patient refused Breakfast
--- NOTE | 2020-08-29 09:40 | PT.IIE ---
Surgical History (Last Reviewed 08/29/20 @ 01:09 by ARABELLA Ulloa) No significant past surgical history Physical Therapy Inpatient Evaluation/Re-Eval M1 PT/OT-IP Prior Functional Status Start: 08/29/20 12:12 Freq: NEEDED Status: Active Protocol: Document 08/29/20 09:40 AB (Rec: 08/29/20 12:51 AB [email or web address]) Medical Review Prior Functional Status Medical History Reviewed Yes Communication able to make needs known Mobility and Gait pt stated that he is independent with all mobilities and ambulation withotu AD Social History Living Arrangements House Number of Floors (Floors) One Floor Number of Stairs To Enter/Railing? 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 M2 PT-IP Current Condition Start: 08/29/20 12:12 Freq: NEEDED Status: Active Protocol: Document 08/29/20 09:40 AB (Rec: 08/29/20 12:51 AB [email or web address]) Physical Therapy Current Condition Current Condition Evaluation Date 08/29/20 Treatment Diagnosis dizziness; difficulty in walking Onset Date 08/28/20 Precautions Other Precautions falls M3 PT-IP Subjective Start: 08/29/20 12:12 Freq: NEEDED Status: Active Protocol: Document 08/29/20 09:40 AB (Rec: 08/29/20 12:51 AB [email or web address]) Subjective Physical Therapy Visit Type Type Initial Evaluation Visit Start Time 09:40 Visit Stop Time 10:00 Total Visit Minutes 20 Number of NOVELTY DIPPER Visits 0 Physical Therapy Visit Comments Patient Comments agreeable to do PT M4 PT-IP Mobility and Gait Start: 08/29/20 12:12 Freq: NEEDED Status: Active Protocol: Document 08/29/20 09:40 AB (Rec: 08/29/20 12:51 AB [email or web address]) PT-Bed Mobility Assessment Supine to Sit Supine to Sit Standby Assistance PT-Transfer Assessment Sit to and From Stand Sit to and from Stand Minimal Assistance,1 Person Assistance,Use of Upper Extremities Equipment Transfer Assistive Device None,Gait Belt Orthotic/Prosthetic Devices or Brace: No Transfers Transfer Destination Toilet Transfer Technique ambulated without AD Transfer Ability Level of Assist Minimal Assistance,1 Person Assistance,Use of Upper Extremities Comments Mobility Comments pt supine in bed. agreed to do PT. initially stated that he has dizziness but unable to quantify. when asked if dizziness worsens with movement, stated that he does not have dizziness when he is not moving. stated that when he sits up, dizziness disappears after a few minutes of not moving. completed supine to sit SBA. pt was able to sit on EOB SBA. weatherization field technician came in to take pt to MRI. pt requested to use the toilet first. ambulated to the toilet without AD min A and pt presents with unsteady gait and pt tends to hold on to bed /wall/counter for support. provided pt with FWW to use. completed sit to stand from the toilet SBA and ambulated towards the sink using FWW CGA . able to maintain standing leaning against the counter SBA. pt ambulated towards the w/c using FWW CGA. Left pt with weatherization field technician. Gait Assessment Gait Gait Assistance Required: Contact Guard Assist,Minimum Assistance Distance (Feet) 20 Able to Maintain Weight Bearing Status Yes During Gait Assistive Devices Assistive Device None,Gait Belt,Front Wheeled Walker Orthotic/Prosthetic Devices or Brace: No Gait Deviations General Gait Pattern Ataxic,Decreased Stride Length ,Decreased Feet Clearance Factors Limiting Gait Function Factors Limiting Gait Function Poor Balance,Poor Safety Awareness Comments Gait Comments pls refer to mobility section for details PT-Balance Assessment Sitting Balance and Reactions Static Sitting Balance Ability Good Dynamic Sitting Balance Ability Good Standing Balance and Reactions Static Standing Balance Ability Poor Dynamic Standing Balance Ability Poor Device Used without AD M5 PT-IP Objective Assessments Start: 08/29/20 12:12 Freq: NEEDED Status: Active Protocol: Document 08/29/20 09:40 AB (Rec: 08/29/20 12:51 AB [email or web address]) Orientation Orientation/Cognition Level of Alertness Alert Orientation Name,Place,Situation Gross Range of Motion Lower Extremity ROM Assessment Within Functional Limits Strength Lower Extremity Strength Assessment Within Functional Limits Muscle Tone Muscle Tone WNL Yes M6 PT-IP Treatment Start: 08/29/20 12:12 Freq: NEEDED Status: Active Protocol: Document 08/29/20 09:40 AB (Rec: 08/29/20 12:51 AB [email or web address]) Physical Therapy Treatment Education Education Provided Safety M7 PT-IP Assessment and Plan Start: 08/29/20 12:12 Freq: NEEDED Status: Active Protocol: Document 08/29/20 09:40 AB (Rec: 08/29/20 12:51 AB [email or web address]) PT Summary Assessment and Plan Potential Rehabilitation Potential Fair Status of Condition at Evaluation Evolving Summary Impairments Pain,ROM,Strength,Balance, Coordination,Cognition,Bed Mobility,Transfers,Gait, Activity Tolerance Assessment Summary pt requiring min A with ambultion without AD and presents with unsteady gait. recommending use of FWW at this time for safety. will continue to assess progress for safety d/c plan. pt may require Snf or acute rehab at this time. Goals Bed Mobility Goal Independent Transfer Goal Independent,Front Wheeled Walker Gait Goal Independent,Front Wheel Walker Gait Distance 150 Other Goals improve ambulation without AD 250 ft mod I up/down 3 steps without rails SBA Days to Meet Goals 5 Frequency of Treatment Frequency Of Treatment Twice a Day Treatment Plan Physical Therapy Treatment Plan Bed Mobility Training,Transfer Training,Gait Training, Therapeutic Exercise,Balance Retraining,Post Op Education, Discharge Planning, Neuromuscular Re-ed Other Recommendations and Next Treatment contacted vestibular PT for Focus possible vestibular assessment Recommendations To Nursing Amount of Assist Needed 1 Person Assist Discharge Recommendations PT Discharge Recommendations SNF Rehab,Acute Rehab Transportation Needs at Discharge Wheelchair/Cabulance
--- NOTE | 2020-08-29 11:13 | CM.IDA ---
Initial DCP Assessment Note Pt is a 65 yo male, resident of [place], arrives w/dizziness and admitted observation for stroke r/o- CVA vs TIA PCP: None listed Payer: Self Pay confirmed by Admitting Reviewed chart, pt discussed in multidisciplinary rounds this morning. Patient is indp and active at baseline. According to RN- patient continues to complain of dizziness with no additional symptoms. Attempted assessment this morning and patient was off the floor for MRI No needs expected from DC planning team although will remain available in case this changes today. MRI results appear to be pending at time of this note AVTAR An Discharge Planning/Care Management CM Discharge Assessment Start: 08/29/20 11:11 Freq: Status: Active Protocol: Document 08/29/20 11:12 VAN (Rec: 08/29/20 11:13 VAN [id number]) Discharge Planning Assessment Assigned Director Of In Service Education AVTAR Zimmerman DPOA/Assigned Designee Name kayli Jesus Contact Information [phone] Advance Directives? No History Provided By Patient,Medical Record Prior Living Arrangements House Household Members children Type of transporation used prior to Drives own vehicle admit Independent with ADL's Yes Is patient alert and oriented? Yes Barriers to Discharge No Comment Not at this time Discharge Plan Home Transportation Arrangement Family Referrals Initiated None needed Additional Comment At this time
--- NOTE | 2020-08-29 12:40 | DIET.PN ---
Dietary Progress Note RD consulted for pt with intentional weight loss. Per pt he has intentionally lost some weight recently but has no questions for this RD at this time. RD happy to answer any questions that may come up during this hospital stay.
--- NOTE | 2020-08-29 12:56 | PT-IP ANOTE ---
Pt came back from MRI. brain MRI result: No evidence of infarct or other acute intracranial abnomality. Contacted vestibular PT to do further assessement and will be coming in at ~ 230 pm. Pt and nurse made aware.
--- NOTE | 2020-08-29 15:30 | PT.IPTN ---
Physical Therapy Treatment Note M2 PT-IP Current Condition Start: 08/29/20 12:12 Freq: NEEDED Status: Active Protocol: Document 08/29/20 09:40 AB (Rec: 08/29/20 12:51 AB [email or web address]) Physical Therapy Current Condition Current Condition Evaluation Date 08/29/20 Treatment Diagnosis dizziness; difficulty in walking Onset Date 08/28/20 Precautions Other Precautions falls M3 PT-IP Subjective Start: 08/29/20 12:12 Freq: NEEDED Status: Active Protocol: Document 08/29/20 14:35 MB (Rec: 08/29/20 15:30 MB [id number]) Subjective Physical Therapy Visit Type Type Treatment Note Visit Start Time 14:35 Visit Stop Time 15:00 Total Visit Minutes 25 Physical Therapy Visit Comments Patient Comments PT clears with nsg. Pt is agreeable to vestibular assessment. M4 PT-IP Mobility and Gait Start: 08/29/20 12:12 Freq: NEEDED Status: Active Protocol: Document 08/29/20 09:40 AB (Rec: 08/29/20 12:51 AB [email or web address]) PT-Bed Mobility Assessment Supine to Sit Supine to Sit Standby Assistance PT-Transfer Assessment Sit to and From Stand Sit to and from Stand Minimal Assistance,1 Person Assistance,Use of Upper Extremities Equipment Transfer Assistive Device None,Gait Belt Orthotic/Prosthetic Devices or Brace: No Transfers Transfer Destination Toilet Transfer Technique ambulated without AD Transfer Ability Level of Assist Minimal Assistance,1 Person Assistance,Use of Upper Extremities Comments Mobility Comments pt supine in bed. agreed to do PT. initially stated that he has dizziness but unable to quantify. when asked if dizziness worsens with movement, stated that he does not have dizziness when he is not moving. stated that when he sits up, dizziness disappears after a few minutes of not moving. completed supine to sit SBA. pt was able to sit on EOB SBA. timber management technician came in to take pt to MRI. pt requested to use the toilet first. ambulated to the toilet without AD min A and pt presents with unsteady gait and pt tends to hold on to bed /wall/counter for support. provided pt with FWW to use. completed sit to stand from the toilet SBA and ambulated towards the sink using FWW CGA . able to maintain standing leaning against the counter SBA. pt ambulated towards the w/c using FWW CGA. Left pt with timber management technician. Gait Assessment Gait Gait Assistance Required: Contact Guard Assist,Minimum Assistance Distance (Feet) 20 Able to Maintain Weight Bearing Status Yes During Gait Assistive Devices Assistive Device None,Gait Belt,Front Wheeled Walker Orthotic/Prosthetic Devices or Brace: No Gait Deviations General Gait Pattern Ataxic,Decreased Stride Length ,Decreased Feet Clearance Factors Limiting Gait Function Factors Limiting Gait Function Poor Balance,Poor Safety Awareness Comments Gait Comments pls refer to mobility section for details PT-Balance Assessment Sitting Balance and Reactions Static Sitting Balance Ability Good Dynamic Sitting Balance Ability Good Standing Balance and Reactions Static Standing Balance Ability Poor Dynamic Standing Balance Ability Poor Device Used without AD M5 PT-IP Objective Assessments Start: 08/29/20 12:12 Freq: NEEDED Status: Active Protocol: Document 08/29/20 09:40 AB (Rec: 08/29/20 12:51 AB [email or web address]) Orientation Orientation/Cognition Level of Alertness Alert Orientation Name,Place,Situation Gross Range of Motion Lower Extremity ROM Assessment Within Functional Limits Strength Lower Extremity Strength Assessment Within Functional Limits Muscle Tone Muscle Tone WNL Yes M6 PT-IP Treatment Start: 08/29/20 12:12 Freq: NEEDED Status: Active Protocol: Document 08/29/20 14:35 MB (Rec: 08/29/20 15:30 MB [id number]) Physical Therapy Treatment Other Treatments Other Treatment Performed Education about vestibular neuritis, provided APTA vestibular SIG patient education handout, ed pt in typical duration of symptoms, importance of hydration (less caffeine and alcohol and more non-caffeinated fluid), benefits of outpatient PT for VOR assessment and treatment in future M7 PT-IP Assessment and Plan Start: 08/29/20 12:12 Freq: NEEDED Status: Active Protocol: Document 08/29/20 14:35 MB (Rec: 08/29/20 15:30 MB [id number]) PT Summary Assessment and Plan Potential Rehabilitation Potential Good Status of Condition at Evaluation Evolving Summary Impairments Balance,Bed Mobility,Transfers ,Gait,Activity Tolerance Assessment Summary Vestibular PT reviews chart and notes negative diagnostics . PT arrives and performs oculomotor screen. Pt presents with positive right beating horizontal nystagmus with torsional component that is faster with right gaze and diminishes with left gaze. He denies hearing changes. His nystagmus pattern and denial of hearing change are indicative of left vestibular neuritis. PT provides education to pt and speaks with MD and nsg. Encouraged pt to get up with nsg staff and increase non-caffeinated fluid intake. Goals Bed Mobility Goal Independent Transfer Goal Independent,Front Wheeled Walker Gait Goal Independent,Front Wheel Walker Gait Distance 150 Other Goals improve ambulation without AD 250 ft mod I up/down 3 steps without rails SBA Days to Meet Goals 5 Frequency of Treatment Frequency Of Treatment Once a Day Treatment Plan Physical Therapy Treatment Plan Bed Mobility Training,Transfer Training,Gait Training, Therapeutic Exercise,Balance Retraining,Post Op Education, Discharge Planning, Neuromuscular Re-ed Recommendations To Nursing Amount of Assist Needed Independent Discharge Recommendations PT Discharge Recommendations Home with 24/7 Assist Available,Outpatient PT Other Discharge Recommendations Vestibular PT outpatient Transportation Needs at Discharge Private Vehicle
[2020-08-29] MEDS: predniSONE 20 MG TABLET 60 MG PO (15:44)
[2020-08-29] MEDS: MECLIZINE HCL 12.5 MG TABLET 25 MG PO (15:47)
--- NOTE | 2020-08-29 16:21 | PM.PN.1 ---
Subjective Subjective Date Patient Seen: 08/29/20 Time Patient Seen: 16:22 Interval history: This is a 65-year-old male admitted with peripheral vertigo. MRI was negative for a central etiology. Patient was seen by vestibular therapy today and thought presentation was more consistent with vestibular neuritis. Patient has been started on prednisone. He remains markedly dizzy is minimal movement and is unable to get up and move. Exam Vital Signs (past 8 hours): - 08/29/20 09:00 08/29/20 16:00 Temperature 98.4 F Pulse Rate 58 L Pulse Rate [Orthostatic Lying] 61 58 L Pulse Rate [Orthostatic Sitting] 67 63 Pulse Rate [Orthostatic Standing] 67 68 Respiratory Rate 17 Blood Pressure 172/81 H Blood Pressure [Orthostatic Lying] 186/81 H 172/81 H Blood Pressure [Orthostatic Sitting] 154/88 H 179/82 H Blood Pressure [Orthostatic Standing] 155/92 H 180/79 H Pulse Oximetry 96 Oxygen Delivery Method Room Air Oxygen Flow Rate 0 Narrative Exam Narrative: Gen: Alert, oriented, well-developed 65 y.o. male, NAD but lying on R side, not moving. HEENT: normocephalic, atraumatic, conjunctiva clear, sclera non-icteric, oral mucosa pink and moist Neck: supple, full ROM, no JVD, trachea is midline Resp: Lungs CTA, non-labored breathing CV: RRR, no murmur or rubs Abd: soft, non-tender, normoactive BTs Skin: no lesions or rashes, dry and intact Neuro: Alert and oriented X 4 w/no focal deficits. Speech clear and coherent with no facial droop or flattened labial fold Extremities: moves all 4 extremities, is ambulatory, negative Helga?s sign Psyche: normal mood and affect. Objective Labs Result Diagrams: 08/29/20 04:55 08/29/20 04:55 Labs: Laboratory Results - last 24 hr 08/28/20 08/28/20 08/28/20 15:00 15:00 15:00 WBC RBC Hgb Hct MCV MCH MCHC RDW Plt Count Neut % (Auto) Lymph % (Auto) Cocke % (Auto) Eos % (Auto) Baso % (Auto) Neut # (Auto) Lymph # (Auto) Cocke # (Auto) Eos # (Auto) Baso # (Auto) Sodium 142 Potassium 3.9 Chloride 106 Carbon Dioxide 26 BUN 18 Creatinine 0.84 Estimated GFR > 60.0 BUN/Creatinine Ratio 21.4 Glucose 115 H Hemoglobin A1c 5.1 Calcium 9.7 Magnesium Total Bilirubin 0.7 AST 37 ALT 26 Alkaline Phosphatase 78 Total Creatine Kinase 64 CK-MB (CK-2) TNP CK-MB (CK-2) Rel Index TNP Troponin I < 0.012 Total Protein 7.7 Albumin 4.3 Globulin 3.4 Albumin/Globulin Ratio 1.3 Triglycerides Cholesterol LDL Cholesterol, Calc HDL Cholesterol Procalcitonin 0.05 TSH Urine Color Urine Appearance Urine pH Ur Specific [place] Urine Protein Urine Glucose (UA) Urine Ketones Urine Occult Blood Urine Nitrate Urine Bilirubin Urine Urobilinogen Ur Leukocyte Esterase Urine RBC Urine WBC Urine Bacteria Ur Culture Indicated? U Opiates 300ng/mL cut Ur Oxycodone Screen Urine Methadone Screen Ur Barbiturates Screen U Tricyclic Antidepress Ur Phencyclidine Scrn Ur Amphetamines Screen U Methamphetamines Scrn Ur MDMA Scrn (Ecstasy) U Benzodiazepines Scrn Urine Cocaine Screen U Marijuana (THC) Screen Chlamy pneumoniae PCR Adenovirus (PCR) B. pertussis DNA (PCR) B.parapertussis DNA PCR Coronavirus OC43 (PCR) Coronavirus HKU1 (PCR) Coronavirus 229E (PCR) SARS-CoV-2 (PCR) Coronavirus NL63 (PCR) Human Metapneumovir PCR Influenza Type A (PCR) Influenza Type B (PCR) M. pneumoniae (PCR) Parainfluenza 1 (PCR) Parainfluenza 2 (PCR) Parainfluenza 3 (PCR) Parainfluenza 4 (PCR) RSV (PCR) Entero/Rhino (PCR) 08/28/20 08/28/20 08/28/20 15:00 16:23 21:02 WBC RBC Hgb Hct MCV MCH MCHC RDW Plt Count Neut % (Auto) Lymph % (Auto) Cocke % (Auto) Eos % (Auto) Baso % (Auto) Neut # (Auto) Lymph # (Auto) Coc[place] # (Auto) Eos # (Auto) Baso # (Auto) Sodium Potassium Chloride Carbon Dioxide BUN Creatinine Estimated GFR BUN/Creatinine Ratio Glucose Hemoglobin A1c Calcium Magnesium Total Bilirubin AST ALT Alkaline Phosphatase Total Creatine Kinase CK-MB (CK-2) CK-MB (CK-2) Rel Index Troponin I Total Protein Albumin Globulin Albumin/Globulin Ratio Triglycerides Cholesterol LDL Cholesterol, Calc HDL Cholesterol Procalcitonin TSH 0.82 Urine Color Urine Appearance Urine pH Ur Specific [place] Urine Protein Urine Glucose (UA) Urine Ketones Urine Occult Blood Urine Nitrate Urine Bilirubin Urine Urobilinogen Ur Leukocyte Esterase Urine RBC Urine WBC Urine Bacteria Ur Culture Indicated? U Opiates 300ng/mL cut Negative Ur Oxycodone Screen Negative Urine Methadone Screen Negative Ur Barbiturates Screen Negative U Tricyclic Antidepress Negative Ur Phencyclidine Scrn Negative Ur Amphetamines Screen Negative U Methamphetamines Scrn Negative Ur MDMA Scrn (Ecstasy) Negative U Benzodiazepines Scrn Negative Urine Cocaine Screen Negative U Marijuana (THC) Screen Negative Chlamy pneumoniae PCR Adenovirus (PCR) B. pertussis DNA (PCR) B.parapertussis DNA PCR Coronavirus OC43 (PCR) Coronavirus HKU1 (PCR) Coronavirus 229E (PCR) SARS-CoV-2 (PCR) Negative Coronavirus NL63 (PCR) Human Metapneumovir PCR Influenza Type A (PCR) Influenza Type B (PCR) M. pneumoniae (PCR) Parainfluenza 1 (PCR) Parainfluenza 2 (PCR) Parainfluenza 3 (PCR) Parainfluenza 4 (PCR) RSV (PCR) Entero/Rhino (PCR) 08/28/20 08/28/20 08/29/20 21:08 21:23 04:55 WBC 8.2 RBC 4.49 L Hgb 13.1 L Hct 38.8 L MCV 86.3 MCH 29.2 MCHC 33.9 RDW 13.0 Plt Count 182 Neut % (Auto) 72.6 Lymph % (Auto) 17.3 L Cocke % (Auto) 8.2 Eos % (Auto) 1.4 L Baso % (Auto) 0.5 Neut # (Auto) 6000 Lymph # (Auto) 1400 Cocke # (Auto) 700 Eos # (Auto) 100 Baso # (Auto) 0 Sodium Potassium Chloride Carbon Dioxide BUN Creatinine Estimated GFR BUN/Creatinine Ratio Glucose Hemoglobin A1c Calcium Magnesium Total Bilirubin AST ALT Alkaline Phosphatase Total Creatine Kinase CK-MB (CK-2) CK-MB (CK-2) Rel Index Troponin I Total Protein Albumin Globulin Albumin/Globulin Ratio Triglycerides Cholesterol LDL Cholesterol, Calc HDL Cholesterol Procalcitonin TSH Urine Color Yellow Urine Appearance Clear Urine pH 6.5 Ur Specific [place] 1.015 Urine Protein Negative Urine Glucose (UA) Negative Urine Ketones Trace H Urine Occult Blood Trace-intact Urine Nitrate Negative Urine Bilirubin Negative Urine Urobilinogen 0.2 Ur Leukocyte Esterase Negative Urine RBC 1-5/hpf Urine WBC None seen Urine Bacteria None seen Ur Culture Indicated? Cult not indicated U Opiates 300ng/mL cut Ur Oxycodone Screen Urine Methadone Screen Ur Barbiturates Screen U Tricyclic Antidepress Ur Phencyclidine Scrn Ur Amphetamines Screen U Methamphetamines Scrn Ur MDMA Scrn (Ecstasy) U Benzodiazepines Scrn Urine Cocaine Screen U Marijuana (THC) Screen Chlamy pneumoniae PCR Not detected Adenovirus (PCR) Not detected B. pertussis DNA (PCR) Not detected B.parapertussis DNA PCR Not detected Coronavirus OC43 (PCR) Not detected Coronavirus HKU1 (PCR) Not detected Coronavirus 229E (PCR) Not detected SARS-CoV-2 (PCR) Not detected Coronavirus NL63 (PCR) Not detected Human Metapneumovir PCR Not detected Influenza Type A (PCR) Not detected Influenza Type B (PCR) Not detected M. pneumoniae (PCR) Not detected Parainfluenza 1 (PCR) Not detected Parainfluenza 2 (PCR) Not detected Parainfluenza 3 (PCR) Not detected Parainfluenza 4 (PCR) Not detected RSV (PCR) Not detected Entero/Rhino (PCR) Not detected 08/29/20 04:55 WBC RBC Hgb Hct MCV MCH MCHC RDW Plt Count Neut % (Auto) Lymph % (Auto) Cocke % (Auto) Eos % (Auto) Baso % (Auto) Neut # (Auto) Lymph # (Auto) Cocke # (Auto) Eos # (Auto) Baso # (Auto) Sodium 140 Potassium 3.6 Chloride 106 Carbon Dioxide 29 BUN 17 Creatinine 0.95 Estimated GFR > 60.0 BUN/Creatinine Ratio 17.9 Glucose 90 Hemoglobin A1c Calcium 9.0 Magnesium 1.8 Total Bilirubin AST ALT Alkaline Phosphatase Total Creatine Kinase CK-MB (CK-2) CK-MB (CK-2) Rel Index Troponin I Total Protein Albumin Globulin Albumin/Globulin Ratio Triglycerides 157 H Cholesterol 229 H LDL Cholesterol, Calc 154 H HDL Cholesterol 44 Procalcitonin TSH Urine Color Urine Appearance Urine pH Ur Specific [place] Urine Protein Urine Glucose (UA) Urine Ketones Urine Occult Blood Urine Nitrate Urine Bilirubin Urine Urobilinogen Ur Leukocyte Esterase Urine RBC Urine WBC Urine Bacteria Ur Culture Indicated? U Opiates 300ng/mL cut Ur Oxycodone Screen Urine Methadone Screen Ur Barbiturates Screen U Tricyclic Antidepress Ur Phencyclidine Scrn Ur Amphetamines Screen U Methamphetamines Scrn Ur MDMA Scrn (Ecstasy) U Benzodiazepines Scrn Urine Cocaine Screen U Marijuana (THC) Screen Chlamy pneumoniae PCR Adenovirus (PCR) B. pertussis DNA (PCR) B.parapertussis DNA PCR Coronavirus OC43 (PCR) Coronavirus HKU1 (PCR) Coronavirus 229E (PCR) SARS-CoV-2 (PCR) Coronavirus NL63 (PCR) Human Metapneumovir PCR Influenza Type A (PCR) Influenza Type B (PCR) M. pneumoniae (PCR) Parainfluenza 1 (PCR) Parainfluenza 2 (PCR) Parainfluenza 3 (PCR) Parainfluenza 4 (PCR) RSV (PCR) Entero/Rhino (PCR) [facility] Surgical History No significant past surgical history Family History (Updated 08/29/20 @ 01:18 by ARABELLA Ulloa) Grandfather Myocardial infarction Mother Digestive system disease Father Old age Social History household members: children Smoking Status: Never smoker alcohol intake: current Assessment & Plan Assessment & Plan narrative: This is a 65-year-old male admitted with peripheral vertigo. 1. Vestibular neuritis, acute compresses on admission, presumably of Left ear. -patient still with marked dizziness with minimal movement. Will continue supportive care with meclizine, Ativan. Have started offered a 60 mg of prednisone which is typically continued for 5 days, then a 5 day taper following. -continue physical therapy, vestibular therapy as outpatient. - MRI negative for any central etiologies including posterior CVA. 2. Hypertension, acute with an admission bp of 202/82, present on admission -patient was given a dose of labetalol with improvement, his blood pressure is elevated again today. Will start amlodipine 3. HLD -lipid panel with TG 157, TC 229, LDL 154, HDL 44. -Atorvastatin 40 mg po at bedtime Code: Full Dispo: pending further improvement in vestibular symptoms. hopeful for discharge home tomorrow. Quality VTE Deep Vein Thrombosis/Pulmonary Embolism Present on Admission: No
--- NOTE | 2020-08-29 16:55 | PC.NURSE ---
Addendum entered by Roxanne Cornejo R.N. 08/29/20 20:18: Pt requests assistance to ambulate into bathroom to attempt bowel movement. Pt moves self slowly but independently without any c/o dizziness or nausea/vomiting. Into bathroom and provided with call light and instructed to call staff if feeling symptoms and/or when ready to return to bed. Pt puts self back to bed and positions self on left side. BL calf scd's replaced and reinforced to pt to call staff for assistance when out of bed d/t diagnosis. Reviewed with pt action of statins and rationale and pt declines this med. No concerns or complaints verbalized by pt. Original Note: Pt lying quietly in bed on right side awake, alert, conversant. Pt admits to low grade dizziness. Discussion with pt re action of meclizine and this med was given as per emar. Pt was instructed on use of prednisone as ordered and was given 1/2 sandwich which pt tolerated prior to administration of oral steroid. Pt denies nausea. Telemetry in place. Encouraged to call for needs. BL calf scd's replaced.
[2020-08-29] MEDS: AMLODIPINE 5 MG TABLET PO (17:42)
[2020-08-29] MEDS: SODIUM CHLORIDE 0.9% FLUSH 10 ML IV (20:17)
[2020-08-30 00:30] VITALS: BP 150/87; BP 153/94; BP 166/91; PULSE 71; RESP 20; TEMP 36.6; O2SAT 94
[2020-08-30 04:00] VITALS: BP 157/88; PULSE 69; RESP 16; TEMP 36.5; O2SAT 94
[2020-08-30 05:34] LABS: Add Manual Diff / Slide Review NO; Basophils Absolute Auto 0 /uL (0-100); Basophils Percent Auto 0.2 % (0-2); Eosinophils Absolute Auto 0 /uL (0-450); Hematocrit 41.3 % (41-53); Lymphocytes Absolute Auto 900 /uL (1100-4500); Lymphocytes Percent Auto 8.6 % (25-40); Mean Corpuscular HGB Conc 33.9 % (30-36); Mean Corpuscular Hemoglobin 29.2 PG (26-34); Monocytes Absolute Auto 400 /uL (0-900); Monocytes Percent Auto 3.8 % (3-14); Neutrophils Absolute Auto 8700 /uL (1500-7000); Neutrophils Percent Auto 87.4 % (50-75); Platelet Count 193 X10^3/uL (150-400); Red Cell Distribution Width 13.1 % (11.6-14.8)
[2020-08-30 05:47] LABS: BUN Creatinine Ratio 18.2 (6-22); Blood Urea Nitrogen 16 mg/dL (9-20); Calcium 9.2 mg/dL (8.4-10.2); Carbon Dioxide 28 mmol/L (22-32); Chloride 104 mmol/L (98-107); Estimated Glomerular Filt Rate > 60.0 mL/min (>60); Glucose 102 mg/dL (80-110); HEMOLYSIS < 15 (0-50); Magnesium 1.9 mg/dL (1.6-2.3); Potassium 3.7 mmol/L (3.4-5.1); Sodium 139 mmol/L (137-145)
[2020-08-30 07:00] VITALS: O2SAT 99
[2020-08-30 08:00] VITALS: BP 150/92; BP 152/91; BP 171/89; PULSE 71; PULSE 72; PULSE 73; RESP 18; TEMP 36.7; O2SAT 95
[2020-08-30] MEDS: predniSONE 20 MG TABLET 60 MG PO (08:33)
[2020-08-30] MEDS: MECLIZINE HCL 12.5 MG TABLET 25 MG PO (08:34)
[2020-08-30] MEDS: AMLODIPINE 5 MG TABLET PO (08:34)
[2020-08-30] MEDS: SODIUM CHLORIDE 0.9% FLUSH 10 ML IV (08:37)
[2020-08-30] MEDS: ENOXAPARIN 40 MG/0.4 ML SYRINGE SUBCUT (08:38)
--- NOTE | 2020-08-30 08:46 | P.DS_ITS ---
History of Present Illness History of Present Illness Date Patient Seen: 08/30/20 Time Patient Seen: 08:46 Chief complaint: dizzy with change of position Narrative: Sheldon Collado is a 65 y.o. male with no documented medical history presented to the ED after having awoken with severe enough dizziness that he could not stand up. He states that he got up early in the morning and felt dizzy and then went back to bed and continued to feel dizzy and nauseous he stat es that he vomited several times and has had little bit of diarrhea as well did state that he was sweaty and shaky. The emergency room they performed a CT scan and it was negative for any acute intracranial process. Upon presentation to the emergency department he was afebrile, his blood pressure was 202/82, at that time his heart rate was 60, oxygen saturation of 96% on room air with a respiratory rate of 17. He weighs 105.8 kg with a BMI of 31.1. WBC is slightly elevated at 11.8 with a mild left shift of 9500, glucose was 115 however his A1c is 5.1 the rest of his chemistries were unremarkable, procalcitonin was negative, viral PCR panel and COVID-19 were also negative. Discharge Providers Provider Date of admission: 08/28/20 17:01 Discharge Date: 08/30/20 Consults: 08/28/20 17:56 Consult to Dietitian, Adult Routine Comment: Reason For Exam: intentional weight loss 08/28/20 18:09 Consult to Occupational Therapy Evaluate & Treat Comment: Physician Instructions: Evaluate and treat Consult to Physical Therapy Evaluate & Treat Comment: Physician Instructions: Evaluate and Treat Discharge provider: Maxim Burnett DO Summary Hospital Course Discharge Diagnosis: 1. Vestibular neuritis, acute compresses on admission, presumably of Left ear. 2. Hypertension, acute with an admission bp of 202/82, present on admission 3. HLD Hospital Course: This is a 65-year-old male admitted with peripheral vertigo presumably due to a left-sided vestibular neuritis based on evaluation with a vestibular therapist and MRI which was negative for acute infarct. His blood pressures were also markedly elevated along with his cholesterol. He was started on amlodipine 10 mg and high intensity statin therapy with atorvastatin 40 mg at night. He was given resources to establish care with a primary provider in the area for continued follow-up of his blood pressure and discharged on a prednisone taper for vestibular neuritis with prescription for meclizine to take as needed for continued symptoms. He was recommended to follow-up as an outpatient with a vestibular therapist, or potentially ENT if his symptoms continue. Status at Discharge Cognitive/behavioral status at discharge: oriented Functional status at discharge: independent ambulation Overall status at discharge: patient is progressing back to baseline Exam Vital Signs (past 8 hours): - 08/30/20 04:00 08/30/20 08:00 Temperature 97.7 F 98.1 F Pulse Rate 69 72 Pulse Rate [Orthostatic Lying] 72 Pulse Rate [Orthostatic Sitting] 71 Pulse Rate [Orthostatic Standing] 73 Respiratory Rate 16 18 Blood Pressure 157/88 H 171/89 H Blood Pressure [Orthostatic Lying] 171/89 H Blood Pressure [Orthostatic Sitting] 150/92 H Blood Pressure [Orthostatic Standing] 152/91 H Pulse Oximetry 94 95 Oxygen Delivery Method Room Air Oxygen Flow Rate 0 Narrative Exam Narrative: Gen: Alert, oriented, well-developed 65 y.o. male, NAD but lying on R side, not moving. HEENT: normocephalic, atraumatic, conjunctiva clear, sclera non-icteric, oral mucosa pink and moist Neck: supple, full ROM, no JVD, trachea is midline Resp: Lungs CTA, non-labored breathing CV: RRR, no murmur or rubs Abd: soft, non-tender, normoactive BTs Skin: no lesions or rashes, dry and intact Neuro: Alert and oriented X 4 w/no focal deficits. Speech clear and coherent with no facial droop or flattened labial fold Extremities: moves all 4 extremities, is ambulatory, negative Helga?s sign Psyche: normal mood and affect. Objective Labs Result Diagrams: 08/30/20 05:05 08/30/20 05:05 Labs: Laboratory Results - last 24 hr 08/30/20 08/30/20 05:05 05:05 WBC 10.0 RBC 4.80 Hgb 14.0 Hct 41.3 MCV 86.0 MCH 29.2 MCHC 33.9 RDW 13.1 Plt Count 193 Neut % (Auto) 87.4 H Lymph % (Auto) 8.6 L [place] % (Auto) 3.8 Eos % (Auto) 0.0 L Baso % (Auto) 0.2 Neut # (Auto) 8700 H Lymph # (Auto) 900 L [place] # (Auto) 400 Eos # (Auto) 0 Baso # (Auto) 0 Sodium 139 Potassium 3.7 Chloride 104 Carbon Dioxide 28 BUN 16 Creatinine 0.88 Estimated GFR > 60.0 BUN/Creatinine Ratio 18.2 Glucose 102 Calcium 9.2 Magnesium 1.9 [facility] Surgical History No significant past surgical history Family History (Updated 08/29/20 @ 01:18 by ARABELLA Ulloa) Grandfather Myocardial infarction Mother Digestive system disease Father Old age Social History household members: children Smoking Status: Never smoker alcohol intake: current Discharge Plan Discharge Plan Patient Disposition: Home Provider Discharge Comment: You were admitted to the hospital with vestibular neuritis. You were also found to have elevated BP and cholesterol. Please complete course of prednisone for vestibular neuritis. medications were started as well to try and reduce your risks of complications from elevated BP and cholesterol including stroke and heart attack. Discharge orders & Medications Prescriptions: New amlodipine 10 mg tablet 10 mg PO DAILY 30 Days Qty: 30 RF: 0 atorvastatin [Lipitor] 20 mg Tablet 40 mg PO BEDTIME 30 Days Qty: 30 RF: 0 meclizine 12.5 mg Tablet 25 mg PO Q6HR PRN (Reason: Vertigo) 14 Days Qty: 30 RF: 0 prednisone 10 mg tablet See Rx Instructions .ROUTE .COMPLEX Qty: 34 RF: 0 Diet/Activity/Treatments Diet: Diet as Tolerated Activity: As tolerated Visit Report/Discharge Packet Instructions: Acoustic Neuroma, DI for Vertigo, Prednisone Discharge Data Attending Provider: Maxim Burnett VTE Deep Vein Thrombosis/Pulmonary Embolism Present on Admission: No
--- NOTE | 2020-08-30 10:28 | PC.NURSE ---
Addendum entered by Hollie Larson R.N. 08/30/20 12:34: Pt ride arrived, and wheeled out to private vehicle in w/c. Pt continues to endorse his improved vertigo since admission. Original Note: Am shift Pt reports feeling significantly better than admission, tolerating diet this am, sitting upright in bed, This is so much better than yesterday, this is fantastic! PO pred given, education provided about medications, including antihypertensive and PM dosing of Lipitor, Pt asking appropriate questions, engaged in learning about Rx's. DC orders obtained, Pt up to shower, Tele and IV removed. Reviewed dc insntructions and provided with PCP list accepting new patients, for FU. Await ride, for dc home.
--- NOTE | 2020-08-30 11:16 | PT.IPTN ---
Physical Therapy Treatment Note M2 PT-IP Current Condition Start: 08/29/20 12:12 Freq: NEEDED Status: Discharge Protocol: Document 08/29/20 09:40 AB (Rec: 08/29/20 12:51 AB [id number]) Physical Therapy Current Condition Current Condition Evaluation Date 08/29/20 Treatment Diagnosis dizziness; difficulty in walking Onset Date 08/28/20 Precautions Other Precautions falls M3 PT-IP Subjective Start: 08/29/20 12:12 Freq: NEEDED Status: Discharge Protocol: Document 08/30/20 11:04 CLB (Rec: 08/30/20 12:54 CLB [id number]) Subjective Physical Therapy Visit Type Type Treatment Note Visit Start Time 11:04 Visit Stop Time 11:16 Total Visit Minutes 12 Number of [employer] Visits 1 Physical Therapy Visit Comments Patient Comments agreeable to climb stairs but refused ambulation or the use of AD during transfers. M4 PT-IP Mobility and Gait Start: 08/29/20 12:12 Freq: NEEDED Status: Discharge Protocol: Document 08/30/20 11:04 CLB (Rec: 08/30/20 12:54 CLB [id number]) PT-Bed Mobility Assessment Supine to Sit Supine to Sit Standby Assistance PT-Transfer Assessment Sit to and From Stand Sit to and from Stand Contact Guard Assistance,1 Person Assistance,Use of Upper Extremities Equipment Transfer Assistive Device None,Gait Belt Orthotic/Prosthetic Devices or Brace: No Transfers Transfer Destination Bed,Wheelchair Transfer Technique ambulated without AD Transfer Ability Level of Assist Contact Guard Assistance,1 Person Assistance,Use of Upper Extremities Comments Mobility Comments Pt in bed upon arrival, pt agreed to go to therapy stairs and climb stairs, pt refused ambulation in halls and refused to use FWW during transfer. Pt reaches out for furniture, door jam and potter during transfer. Pt climbed three steps CGA with right rail. Pt then returned to room transferring back to bed from . Pt left in bed with all needs within reach. Pt educated on need for FWW at this time but pt refused use of FWW or cane, educated pt on places to purchase items if he changes his mind. Informed RN of pt refusal to use AD or ambulate. Gait Assessment Gait Gait Assistance Required: Contact Guard Assist,1 Person Assist Distance (Feet) 10 Able to Maintain Weight Bearing Status Yes During Gait Assistive Devices Assistive Device None,Gait Belt Orthotic/Prosthetic Devices or Brace: No Gait Deviations General Gait Pattern Ataxic,Decreased Stride Length ,Decreased Feet Clearance Factors Limiting Gait Function Factors Limiting Gait Function Poor Balance,Poor Safety Awareness Comments Gait Comments pls refer to mobility section for details Stair Climbing Assessment Evaluation Level of Assist On Stairs Contact Guard Assistance,1 Person Assistance Devices Stair Climbing Assistive Devices Right Railing Technique/Endurance Stair Climbing Direction Ascend and Descend Stair Climbing Technique Step Over Step Number of Steps Climbed 3 Stair Climbing Set # Repetitions (reps) 1 Comments Stair Climbing Comments Pt has brick ledge of right side to assist up stairs. M5 PT-IP Objective Assessments Start: 08/29/20 12:12 Freq: NEEDED Status: Discharge Protocol: Document 08/29/20 09:40 AB (Rec: 08/29/20 12:51 AB [id number]) Orientation Orientation/Cognition Level of Alertness Alert Orientation Name,Place,Situation Gross Range of Motion Lower Extremity ROM Assessment Within Functional Limits Strength Lower Extremity Strength Assessment Within Functional Limits Muscle Tone Muscle Tone WNL Yes M6 PT-IP Treatment Start: 08/29/20 12:12 Freq: NEEDED Status: Discharge Protocol: Document 08/29/20 14:35 MB (Rec: 08/29/20 15:30 MB [id number]) Physical Therapy Treatment Other Treatments Other Treatment Performed Education about vestibular neuritis, provided APTA vestibular SIG patient education handout, ed pt in typical duration of symptoms, importance of hydration (less caffeine and alcohol and more non-caffeinated fluid), benefits of outpatient PT for VOR assessment and treatment in future M7 PT-IP Assessment and Plan Start: 08/29/20 12:12 Freq: NEEDED Status: Discharge Protocol: Document 08/30/20 11:04 CLB (Rec: 08/30/20 12:54 CLB [id number]) PT Summary Assessment and Plan Potential Rehabilitation Potential Good Status of Condition at Evaluation Evolving Summary Impairments Balance,Bed Mobility,Transfers ,Gait,Activity Tolerance Assessment Summary Pt states he is feeling better today but continues to be unsteady during ambulation. Pt refused ambulation or use of an AD for transfer to and back to bed. Pt able to climb three steps CGA with use of right rail. Pt educated on benefit of using AD during ambulation but pt refused. Pt plans to d/c with son to assist him at home. Goals Bed Mobility Goal Independent Transfer Goal Independent,Front Wheeled Walker Gait Goal Independent,Front Wheel Walker Gait Distance 150 Other Goals improve ambulation without AD 250 ft mod I up/down 3 steps without rails SBA Days to Meet Goals 5 Frequency of Treatment Frequency Of Treatment Once a Day Treatment Plan Physical Therapy Treatment Plan Bed Mobility Training,Transfer Training,Gait Training, Therapeutic Exercise,Balance Retraining,Post Op Education, Discharge Planning, Neuromuscular Re-ed Recommendations To Nursing Amount of Assist Needed 1 Person Assist Discharge Recommendations PT Discharge Recommendations Home with 24/ Assist Available,Outpatient PT Other Discharge Recommendations Vestibular PT outpatient Transportation Needs at Discharge Private Vehicle
--- NOTE | 2020-08-30 13:43 | CM.DPNOTE ---
DC Note DC order in place, patient will DC home w/son, ambulating in room, no needs from this DCP team, close outpatient f/u recommended. JW
== END 2020-08-30 12:36 | disposition home or self-care (01) ==
LOC: ED 16:15 → AC 17:02
PROVIDERS: Nurse Practitioner Family; Admitting Provider Internal Medicine; Emergency Provider Emergency Medicine; Referring Provider Emergency Medicine; Visit Provider Internal Medicine
DX: H93.3X9 Disorders of unspecified acoustic nerve (principal); I10 Essential (primary) hypertension; H81.10 Benign paroxysmal vertigo, unspecified ear; E78.5 Hyperlipidemia, unspecified; Z20.822 Contact with and (suspected) exposure to COVID-19
CPT/HCPCS: 36415; 70460; 70496; 70498; 70548; 70553; 80048; 80053; 80061; 80305; 81001; 82550; 82962; 83036; 83735; 84145; 84443; 84484; 85025; 85610; 85730; 87633; 87635; 93005; 96361; 96372; 96374; 96375; 97162; 97166; 97530; 97535; 99285; C9803; G0378; J1650; J2060; J2405; Q9967

== ENCOUNTER 2023-04-25 14:12 | Emergency (ER) | payer OTHER, SELFPAY ==
[2020-08-28 17:48] VITALS: BMI 31.1
[2023-04-25] VITALS (74 sets, daily range): BP systolic 168–216; BP diastolic 91–126; PULSE 75–110; RESP 7–27; TEMP 36.6; O2SAT 92–100; BMI 32.1
--- NOTE | 2023-04-25 14:31 | DI.RAD.S_ITS ---
PROCEDURE: XR CHEST 1V INDICATIONS: chest pain TECHNIQUE: One view of the chest was acquired. COMPARISON: None. FINDINGS: Surgical changes and devices: None. Lungs and pleura: Mild patchy opacity within the bilateral lung bases. No pleural effusions or pneumothorax. Mediastinum: Mediastinal contours appear normal. Heart size is normal. Bones and chest wall: No suspicious bony lesions. Overlying soft tissues appear unremarkable. IMPRESSION: Bibasilar pneumonia. Dictated by: Padilla Levy M.D. on 04/25/2023 at 15:14 Approved by: Padilla Levy M.D. on 04/25/2023 at 15:14
[2023-04-25] MEDS: ASPIRIN 81 MG CHEW TAB 324 MG PO (14:36)
--- NOTE | 2023-04-25 14:37 | ED.SOB ---
HPI - SOB/Dyspnea General Chief Complaint: Shortness of Breath/Dyspnea Stated Complaint: sob, chest tightness Time Seen by Provider: 04/25/23 14:32 Source: patient Mode of arrival: Wheelchair Limitations: no limitations History of Present Illness HPI Narrative: 67-year-old male with no reported medical issues patient states he had a recent upper respiratory congestion which resolved but his shortness of breath persistent. Patient states he has had persistent shortness of breath that is worsened over the last 3 days. He states it is very hard to sleep. He states no orthopnea. He states no chest pain or pressure but just feels very short of breath. Denies fevers or chills. States he has not coughing no productive sputum. No nausea no vomiting, no issues with bowel movements, no urinary issues. Does notice some new swelling in his feet. Patient states he has not seen a primary care physician about 15 years. He does not take any daily prescription medications. No prior surgeries. No known drug allergies. Occasional tobacco but regularly, 1-2 alcoholic drinks every other day, no recreational drugs. Patient states no known family history of embolic, cardiac or vascular disease. Related Data Previous Rx's Medication Instructions Recorded furosemide 40 mg tablet (Lasix) 40 mg PO DAILY #7 tabs 04/25/23 metoprolol succinate 50 mg 50 mg PO DAILY #30 tabs 04/25/23 tablet,extended release 24 hr Allergies Allergy/AdvReac Type Severity Reaction Status Date / Time No Known Drug Allergies Allergy Verified 04/25/23 16:12 Review of Systems Review of Systems ROS Unobtainable: All systems reviewed & are unremarkable except as noted in HPI and below Patient History Surgical History No significant past surgical history Family History Grandfather Myocardial infarction Mother Digestive system disease Father Old age Social History household members: children Smoking Status: Never smoker alcohol intake: current Smoking Status: Never smoker alcohol intake frequency: 0-2 drinks per day Alcohol type: hard liquor Substance Use Type: does not use Exam Narrative Exam Narrative: GENERAL: Alert and oriented x three, male in mild distress. HEENT: Head normocephalic, atraumatic, EOMI, pupils reactive, face symmetric, moist mucous membranes NECK: Supple, full range of motion CARDIOVASCULAR: Regular rate and rhythm without murmurs, rubs or gallops. RESPIRATORY: Breath sounds equal bilaterally, no wheezes rales or rhonchi. No tachypnea accessory muscle use. Mild edema bilateral lower extremities. ABDOMEN: Soft, nontender. Normoactive bowel sounds all 4 quadrants. No guarding or rebound, rigidity, no mass : No CVA tenderness EXTREMITIES: Normal range of motion, no clubbing. Neurovascularly intact NEUROLOGICAL: Cranial nerves II through XII grossly intact. Moving all extremities SKIN: Warm, dry, no petechiae, no rashes or lesions. Initial Vital Signs Initial Vital Signs: Vital Signs Temperature 97.8 F 04/25/23 14:14 Pulse Rate 89 04/25/23 14:14 Respiratory Rate 18 04/25/23 14:14 Blood Pressure 203/108 H 04/25/23 14:14 Pulse Oximetry 98 04/25/23 14:14 Oxygen Delivery Method Room Air 04/25/23 14:14 Course Orders Ordered: ED Orders 04/25/23 14:24 EKG-12 Lead Stat 04/25/23 14:31 XR chest 1V Stat 04/25/23 14:56 BNP [NT-proBNP (BNP-Adult 18+)] Stat Complete Blood Count AUTO DIFF Stat Comprehensive Metabolic Panel Stat D Dimer Stat Lipase Stat Magnesium Stat PTT Partial Thromboplastin Cirilo Stat Prothrombin Time INR Stat Troponin & CK Cardiac Panel Stat 04/25/23 14:57 EKG-12 Lead Stat 04/25/23 15:51 Covid-19 + FLU A/B + RSV - PCR Stat 04/25/23 16:16 Urine Microscopic Stat 04/25/23 17:05 Trop I [Troponin I] Stat Nitroglycerin (Nitroglycerin 0.4 Mg Sl Tab) 0.4 mg SL [id number] PRN PRN Reason: Chest Pain Last Admin: 04/25/23 15:12 Dose: 0.4 mg Documented By: Admin: 04/25/23 14:42 Dose: 0.4 mg Documented By: JOSE Discontinued Medications Aspirin (Aspirin 81 Mg Chew Tab) 324 mg PO NOW ONE Stop: 04/25/23 14:32 Last Admin: 04/25/23 14:36 Dose: 324 mg Documented By: JOSE Furosemide (Furosemide 40 Mg/4 Ml Vial) 40 mg IV NOW ONE Stop: 04/25/23 15:47 Last Admin: 04/25/23 16:04 Dose: 40 mg Documented By: OBIE Metoprolol Succinate (Metoprolol Er 50 Mg Tablet) 50 mg PO NOW ONE Stop: 04/25/23 19:06 Last Admin: 04/25/23 19:23 Dose: 50 mg Documented By: LISSA Metoprolol Tartrate (Metoprolol Tartrate 5 Mg/5 Ml Inj) 5 mg IV Q5M [facility] Stop: 04/25/23 18:56 Last Admin: 04/25/23 19:24 Dose: Not Given Documented By: Admin: 04/25/23 19:24 Dose: Not Given Documented By: Admin: 04/25/23 18:49 Dose: 5 mg Documented By: MEGGAN Nitroglycerin (Nitroglycerin Oint 1 Inch/Gm Oint...G.) 1 inch TOP NOW ONE Stop: 04/25/23 16:13 Last Admin: 04/25/23 16:34 Dose: 1 inch Documented By: YESSENIA Vital Signs Vital signs: Vital Signs - 8 hr 04/25/23 14:14 04/25/23 14:36 04/25/23 14:37 Temperature 97.8 F Pulse Rate 89 99 H Respiratory Rate 18 27 H Blood Pressure 203/108 H 216/125 H Pulse Oximetry 98 95 Oxygen Delivery Method Room Air 04/25/23 14:37 04/25/23 14:40 04/25/23 14:42 Temperature Pulse Rate 97 H 95 H 98 H Respiratory Rate 21 24 Blood Pressure 216/126 H Pulse Oximetry 95 95 Oxygen Delivery Method Room Air 04/25/23 14:45 04/25/23 14:45 04/25/23 14:50 Temperature Pulse Rate 88 Respiratory Rate 17 Blood Pressure 188/91 H 183/92 H Pulse Oximetry 94 Oxygen Delivery Method 04/25/23 14:50 04/25/23 14:55 04/25/23 14:55 Temperature Pulse Rate 86 83 Respiratory Rate 20 16 Blood Pressure 186/98 H Pulse Oximetry 93 92 Oxygen Delivery Method 04/25/23 15:00 04/25/23 15:00 04/25/23 15:05 Temperature Pulse Rate 87 Respiratory Rate 21 Blood Pressure 190/102 H 204/107 H Pulse Oximetry 95 Oxygen Delivery Method Room Air 04/25/23 15:05 04/25/23 15:10 04/25/23 15:10 Temperature Pulse Rate 86 87 Respiratory Rate 14 13 Blood Pressure 200/102 H Pulse Oximetry 96 96 Oxygen Delivery Method 04/25/23 15:12 04/25/23 15:15 04/25/23 15:20 Temperature Pulse Rate 86 88 82 Respiratory Rate 15 15 Blood Pressure 200/102 H Pulse Oximetry 96 94 Oxygen Delivery Method 04/25/23 15:21 04/25/23 15:21 04/25/23 15:25 Temperature Pulse Rate 83 Respiratory Rate 15 Blood Pressure 168/92 H 186/96 H Pulse Oximetry 93 Oxygen Delivery Method Room Air 04/25/23 15:25 04/25/23 15:30 04/25/23 15:30 Temperature Pulse Rate 81 79 Respiratory Rate 15 13 Blood Pressure 184/94 H Pulse Oximetry 92 94 Oxygen Delivery Method 04/25/23 15:35 04/25/23 15:35 04/25/23 15:40 Temperature Pulse Rate 82 Respiratory Rate 13 Blood Pressure 186/99 H 191/103 H Pulse Oximetry Oxygen Delivery Method 04/25/23 15:40 04/25/23 15:45 04/25/23 15:45 Temperature Pulse Rate 81 82 Respiratory Rate 11 L 12 Blood Pressure 190/107 H Pulse Oximetry 94 92 Oxygen Delivery Method 04/25/23 15:50 04/25/23 15:50 04/25/23 15:55 Temperature Pulse Rate 86 Respiratory Rate 17 Blood Pressure 189/110 H 193/108 H Pulse Oximetry 94 Oxygen Delivery Method 04/25/23 15:55 04/25/23 16:00 04/25/23 16:00 Temperature Pulse Rate 84 85 Respiratory Rate 10 L 10 L Blood Pressure 193/111 H Pulse Oximetry 95 96 Oxygen Delivery Method 04/25/23 16:05 04/25/23 16:05 04/25/23 16:13 Temperature Pulse Rate 87 Respiratory Rate 19 Blood Pressure 192/108 H Pulse Oximetry 95 95 Oxygen Delivery Method 04/25/23 16:14 04/25/23 16:15 04/25/23 16:15 Temperature Pulse Rate 92 H Respiratory Rate Blood Pressure 188/113 H 190/111 H Pulse Oximetry 94 Oxygen Delivery Method 04/25/23 16:20 04/25/23 16:20 04/25/23 16:25 Temperature Pulse Rate 87 Respiratory Rate Blood Pressure 185/108 H 187/108 H Pulse Oximetry 95 Oxygen Delivery Method 04/25/23 16:25 04/25/23 16:30 04/25/23 16:30 Temperature Pulse Rate 87 86 Respiratory Rate Blood Pressure 209/110 H Pulse Oximetry 95 95 Oxygen Delivery Method Room Air 04/25/23 16:34 04/25/23 16:35 04/25/23 16:36 Temperature Pulse Rate 93 H 93 H Respiratory Rate Blood Pressure 191/116 H 191/116 H Pulse Oximetry 96 Oxygen Delivery Method 04/25/23 16:36 04/25/23 16:43 04/25/23 16:44 Temperature Pulse Rate 92 H 90 91 H Respiratory Rate 15 10 L Blood Pressure Pulse Oximetry 95 95 96 Oxygen Delivery Method 04/25/23 16:44 04/25/23 16:45 04/25/23 16:46 Temperature Pulse Rate 91 H Respiratory Rate 12 14 Blood Pressure 193/110 H 202/108 H Pulse Oximetry 95 Oxygen Delivery Method Room Air 04/25/23 16:46 04/25/23 16:50 04/25/23 16:55 Temperature Pulse Rate 89 86 84 Respiratory Rate 17 17 17 Blood Pressure Pulse Oximetry 94 95 94 Oxygen Delivery Method 04/25/23 17:00 04/25/23 17:00 04/25/23 17:05 Temperature Pulse Rate 92 H 94 H Respiratory Rate 14 21 Blood Pressure 196/105 H Pulse Oximetry 95 96 Oxygen Delivery Method Room Air 04/25/23 17:10 04/25/23 17:15 04/25/23 17:15 Temperature Pulse Rate 110 H 92 H Respiratory Rate 26 H 17 Blood Pressure 193/99 H Pulse Oximetry 96 Oxygen Delivery Method 04/25/23 17:30 04/25/23 17:35 04/25/23 17:40 Temperature Pulse Rate 97 H 91 H 85 Respiratory Rate 23 17 18 Blood Pressure Pulse Oximetry 95 95 Oxygen Delivery Method 04/25/23 17:45 04/25/23 17:46 04/25/23 17:46 Temperature Pulse Rate 84 84 Respiratory Rate 16 17 Blood Pressure 187/97 H Pulse Oximetry 95 96 Oxygen Delivery Method 04/25/23 17:50 04/25/23 17:55 04/25/23 18:00 Temperature Pulse Rate 86 95 H 87 Respiratory Rate 18 17 Blood Pressure Pulse Oximetry 95 95 96 Oxygen Delivery Method Room Air 04/25/23 18:01 04/25/23 18:01 04/25/23 18:05 Temperature Pulse Rate 86 84 Respiratory Rate 16 11 L Blood Pressure 207/92 H Pulse Oximetry 95 95 Oxygen Delivery Method 04/25/23 18:10 04/25/23 18:15 04/25/23 18:15 Temperature Pulse Rate 82 84 Respiratory Rate 15 17 Blood Pressure 191/101 H Pulse Oximetry 94 95 Oxygen Delivery Method 04/25/23 18:20 04/25/23 18:25 04/25/23 18:30 Temperature Pulse Rate 88 95 H 85 Respiratory Rate 20 7 L 17 Blood Pressure Pulse Oximetry 95 94 96 Oxygen Delivery Method 04/25/23 18:31 04/25/23 18:31 04/25/23 18:35 Temperature Pulse Rate 84 82 Respiratory Rate 17 21 Blood Pressure 213/112 H Pulse Oximetry 96 97 Oxygen Delivery Method 04/25/23 18:40 04/25/23 18:45 04/25/23 18:46 Temperature Pulse Rate 81 86 Respiratory Rate 18 19 Blood Pressure 193/107 H Pulse Oximetry 96 94 Oxygen Delivery Method 04/25/23 18:46 04/25/23 18:50 04/25/23 18:55 Temperature Pulse Rate 87 88 Respiratory Rate 20 20 Blood Pressure 180/104 H Pulse Oximetry 96 97 Oxygen Delivery Method 04/25/23 18:55 04/25/23 19:00 04/25/23 19:05 Temperature Pulse Rate 77 87 80 Respiratory Rate 18 21 Blood Pressure Pulse Oximetry 94 100 95 Oxygen Delivery Method 04/25/23 19:05 04/25/23 19:10 04/25/23 19:10 Temperature Pulse Rate 77 Respiratory Rate Blood Pressure 176/101 H 176/100 H Pulse Oximetry 95 Oxygen Delivery Method 04/25/23 19:15 04/25/23 19:15 04/25/23 19:20 Temperature Pulse Rate 76 75 Respiratory Rate Blood Pressure 182/102 H Pulse Oximetry 94 94 Oxygen Delivery Method 04/25/23 19:20 04/25/23 19:23 04/25/23 19:23 Temperature Pulse Rate 78 Respiratory Rate Blood Pressure 177/98 H 180/102 H 180/102 H Pulse Oximetry Oxygen Delivery Method 04/25/23 19:23 04/25/23 19:25 04/25/23 19:25 Temperature Pulse Rate 76 79 Respiratory Rate Blood Pressure 184/111 H Pulse Oximetry 93 95 Oxygen Delivery Method 04/25/23 19:30 04/25/23 19:30 04/25/23 19:35 Temperature Pulse Rate 79 78 Respiratory Rate 18 Blood Pressure 186/116 H Pulse Oximetry 94 95 Oxygen Delivery Method Room Air MDM - SOB/Dyspnea Lab Data 04/25/23 14:56 04/25/23 14:56 Labs: Lab Results 04/25/23 04/25/23 04/25/23 Range/Units 14:56 15:51 16:16 WBC 8.2 (4.5-11.0) X10^3/uL RBC 4.61 (4.5-5.9) X10^6/uL Hgb 13.6 (13.5-17.5) g/dL Hct 40.0 L (41-53) % MCV 86.9 (80-100) fL MCH 29.5 (26-34) PG MCHC 34.0 (30-36) % RDW 13.4 (11.6-14.8) % Plt Count 219 (150-400) X10^3/uL Neut % (Auto) 71.5 (50-75) % Lymph % (Auto) 15.3 L (25-40) % [place] % (Auto) 11.1 (3-14) % Eos % (Auto) 1.2 L (2-4) % Baso % (Auto) 0.9 (0-2) % Neut # (Auto) 5900 (5219-6976) /uL Lymph # (Auto) 1300 (2257-2471) /uL [place] # (Auto) 900 (0-900) /uL Eos # (Auto) 100 (0-450) /uL Baso # (Auto) 100 (0-100) /uL PT 11.9 (9.4-12.5) SECONDS INR 1.0 (0.9-1.3) APTT 34 (25.1-36.5) SECONDS D-Dimer 480 (<500) ng/ml Sodium 139 (137-145) mmol/L Potassium 3.4 (3.4-5.1) mmol/L Chloride 106 (98-107) mmol/L Carbon Dioxide 25 (22-32) mmol/L BUN 20 (9-20) mg/dL Creatinine 1.02 (0.66-1.25) mg/dL Estimated GFR > 60 (>60) mL/min BUN/Creatinine Ratio 19.6 (6-22) Glucose 97 (80-110) mg/dL Calcium 9.2 (8.4-10.2) mg/dL Magnesium 2.0 (1.6-2.3) mg/dL Total Bilirubin 1.4 H (0.2-1.3) mg/dL AST 43 (17-59) IU/L ALT 77 H (<50) IU/L Alkaline Phosphatase 64 (38-126) U/L Total Creatine Kinase 177 H (55-170) U/L Troponin I 0.053 H (0.01-0.034) ng/mL NT-Pro-B Natriuret Pep 5960 H (<125) pg/mL Total Protein 6.6 (6.3-8.2) g/dL Albumin 4.0 (3.5-5.0) g/dL Globulin 2.6 (1.7-4.1) g/dL Albumin/Globulin Ratio 1.5 (1.0-2.8) Lipase 48 (23-300) U/L Urine RBC 0-1/hpf (0-5/HPF) Urine WBC 0-1/hpf (0-5/HPF) Ur Squamous Epith Cells 0-1 /hpf (0-5/HPF) Urine Bacteria None seen (None) Ur Culture Indicated? Cult not indicated Vol Urine Centrifuged 10ml (spun) SARS-CoV-2 (PCR) Negative (Negative) Influenza A (RT-PCR) Flu a negative (NEGATIVE) Influenza B (RT-PCR) Flu b negative (NEGATIVE) RSV (PCR) Negative (Negative) 04/25/23 Range/Units 17:05 WBC (4.5-11.0) X10^3/uL RBC (4.5-5.9) X10^6/uL Hgb (13.5-17.5) g/dL Hct (41-53) % MCV (80-100) fL MCH (26-34) PG MCHC (30-36) % RDW (11.6-14.8) % Plt Count (150-400) X10^3/uL Neut % (Auto) (50-75) % Lymph % (Auto) (25-40) % [place] % (Auto) (3-14) % Eos % (Auto) (2-4) % Baso % (Auto) (0-2) % Neut # (Auto) (3881-6493) /uL Lymph # (Auto) (8559-3859) /uL [place] # (Auto) (0-900) /uL Eos # (Auto) (0-450) /uL Baso # (Auto) (0-100) /uL PT (9.4-12.5) SECONDS INR (0.9-1.3) APTT (25.1-36.5) SECONDS D-Dimer (<500) ng/ml Sodium (137-145) mmol/L Potassium (3.4-5.1) mmol/L Chloride (98-107) mmol/L Carbon Dioxide (22-32) mmol/L BUN (9-20) mg/dL Creatinine (0.66-1.25) mg/dL Estimated GFR (>60) mL/min BUN/Creatinine Ratio (6-22) Glucose (80-110) mg/dL Calcium (8.4-10.2) mg/dL Magnesium (1.6-2.3) mg/dL Total Bilirubin (0.2-1.3) mg/dL AST (17-59) IU/L ALT (<50) IU/L Alkaline Phosphatase (38-126) U/L Total Creatine Kinase (55-170) U/L Troponin I 0.055 H (0.01-0.034) ng/mL NT-Pro-B Natriuret Pep (<125) pg/mL Total Protein (6.3-8.2) g/dL Albumin (3.5-5.0) g/dL Globulin (1.7-4.1) g/dL Albumin/Globulin Ratio (1.0-2.8) Lipase (23-300) U/L Urine RBC (0-5/HPF) Urine WBC (0-5/HPF) Ur Squamous Epith Cells (0-5/HPF) Urine Bacteria (None) Ur Culture Indicated? Vol Urine Centrifuged SARS-CoV-2 (PCR) (Negative) Influenza A (RT-PCR) (NEGATIVE) Influenza B (RT-PCR) (NEGATIVE) RSV (PCR) (Negative) Urine Dip Bedside Urine Glucose Negative Bedside Urine Bilirubin - Negative Bedside Urine Ketone +/- 5 Urine Specific [place] 1.015 Bedside Urine Occult Blood +/- Bedside Urine pH 6.0 Bedside Urine Protein +/- 15 Bedside Urine Urobilinogen - Negative Bedside Urine Nitrite - Negative Bedside Urine Leukocytes - Negative Esterase Imaging Data Chest x-ray: Radiologist's Impression: [address] [address] XRay Report Signed Patient: Sheldon Collado MR#: [id number] : 1955 Acct:[id number] Age/Sex: 67 / M Date of Service: 04/25/23 Loc: ED Accession Number: [id number] Procedure: XR chest 1V Ordering Provider: Yuni Winn D.O. PROCEDURE: XR CHEST 1V INDICATIONS: chest pain TECHNIQUE: One view of the chest was acquired. COMPARISON: None. FINDINGS: Surgical changes and devices: None. Lungs and pleura: Mild patchy opacity within the bilateral lung bases. No pleural effusions or pneumothorax. Mediastinum: Mediastinal contours appear normal. Heart size is normal. Bones and chest wall: No suspicious bony lesions. Overlying soft tissues appear unremarkable. IMPRESSION: Bibasilar pneumonia. Dictated by: Padilla Levy M.D. on 04/25/2023 at 15:14 Approved by: Padilla Levy M.D. on 04/25/2023 at 15:14 ECG Data Attestation: I personally reviewed and interpreted this ECG as follows: Prior ECG tracings: available for review Interpretation: Sinus rhythm left axis deviation, LVH, elevation in 3 but not clearly into, possible and AVF. Does have depression 1 aVL that is new. Is elevated and V3 but V1 V2 has some loss of T-wave with slope. No elevation appreciated clearly in V4 5 6 but T-waves were inverted before and 5 6 and are not today. MDM Narrative Medical decision making narrative: Spoke with [facility] Emergency doc, they asked that we speak for Cardiology 1st is patient does have some EKG changes but possible ST elevation but based on story and EKG may not activate pharmaceutical laboratory technician. Spoke with Dr. Bautista, cardiology: Reviewed EKG findings. Did send images to Dr. Bautista for his review he feels this is LVH and does not believe that he has a acute ST changes on EKGs. Patient's symptoms are more shortness of breath currently. He is quite hypertensive. Hemoglobin 8.2 hemoglobin of 13, platelets of 219. Coags are negative D-dimer is negative Troponin is indeterminate at 0.053, repeat troponin is very similar at 0.055. BNP is 5960. Patient's creatinine is appropriate at 1.02, normal electrolytes bilirubin is up at 1 with a AST of 43 ALT of 77 alk-phos of 64. Lipase is 48. Chest x-ray shows mild patchy opacity within the bilateral lung places, no pleural effusions or pneumothorax. Read as bibasilar pneumonia but suspect more pulmonary edema. Patient had sudden improvement in blood pressure with nitro paste full continues to be elevated. He had Lasix he states he feels much better in terms of his breathing. He is quite hypertensive I did speak with Dr. Burnett hospitalist. Reviewed recommendations from Cardiology. Recommend diuresis and blood pressure control. Spoke with patient, discussed observation for repeat troponins, echo potential stress test in the morning after blood pressure is more appropriately controlled. Patient is reluctant to stay overnight for observation and after much discussion decides to return home. He is agreeable to starting medication and we will give contact to follow up with either cardiology or local primary care so patient can establish. Patient states that he will return if he is feeling any worse at any time. Discharge Plan Departure Patient Disposition: Home Clinical Impression: Hypertensive urgency, CHF (congestive heart failure) Activity Restrictions/Additional Instructions: Follow up with primary care, call in the morning to set up a follow up appointment as you need further workup and evaluation. Alternatively you can follow up with Cardiology. Contact information is below. Your blood pressure is very elevated it is recommended you stay for observation but is you have elected to return home please return if you are feeling worse. Take blood pressure medication as prescribed, take your next dose in the morning. Also takes Lasix, the water pill once daily until gone. You may need to continue this medication in the future. Prescription sent to [facility] in [place]. Please return for new or worsening chest, increased shortness of breath, lightheadedness, increasing swelling of your extremities, fevers, passing out, vomiting or other new or concerning changes. Prescriptions: New metoprolol succinate 50 mg tablet extended release 24 hr 50 mg PO DAILY Qty: 30 0RF furosemide [Lasix] 40 mg tablet 40 mg PO DAILY Qty: 7 0RF Referrals: Miscellaneous,Doctor, [Primary Care Provider] - Julieta Bautista MD [Physician] - Stand Alone Forms: Patient Portal/API
[2023-04-25] MEDS: NITROGLYCERIN 0.4 MG SL TAB SL ×2 (14:42→15:12)
[2023-04-25 15:12] LABS: Add Manual Diff / Slide Review NO; Basophils Absolute Auto 100 /uL (0-100); Basophils Percent Auto 0.9 % (0-2); Eosinophils Absolute Auto 100 /uL (0-450); Eosinophils Percent Auto 1.2 % (2-4); Hemoglobin 13.6 g/dL (13.5-17.5); Lymphocytes Absolute Auto 1300 /uL (1100-4500); Lymphocytes Percent Auto 15.3 % (25-40); Mean Corpuscular Hemoglobin 29.5 PG (26-34); Mean Corpuscular Volume 86.9 fL (80-100); Monocytes Absolute Auto 900 /uL (0-900); Monocytes Percent Auto 11.1 % (3-14); Neutrophils Absolute Auto 5900 /uL (1500-7000); Neutrophils Percent Auto 71.5 % (50-75); Platelet Count 219 X10^3/uL (150-400); Red Blood Cell Count 4.61 X10^6/uL (4.5-5.9); Red Cell Distribution Width 13.4 % (11.6-14.8); White Blood Cell Count 8.2 X10^3/uL (4.5-11.0)
[2023-04-25 15:22] LABS: Prothrombin Time 11.9 SECONDS (9.4-12.5)
[2023-04-25 15:25] LABS: Alanine Aminotransferase 77 IU/L (<50); Albumin Globulin Ratio 1.5 (1.0-2.8); Alkaline Phosphatase 64 U/L (38-126); Aspartate Aminotransferase 43 IU/L (17-59); BUN Creatinine Ratio 19.6 (6-22); Bilirubin Total 1.4 mg/dL (0.2-1.3); Blood Urea Nitrogen 20 mg/dL (9-20); Calcium 9.2 mg/dL (8.4-10.2); Carbon Dioxide 25 mmol/L (22-32); Chloride 106 mmol/L (98-107); Creatine Kinase 177 U/L (55-170); Estimated Glomerular Filt Rate > 60 mL/min (>60); Globulin 2.6 g/dL (1.7-4.1); Glucose 97 mg/dL (80-110); HEMOLYSIS < 15 (0-50); Lipase 48 U/L (23-300); Potassium 3.4 mmol/L (3.4-5.1); Sodium 139 mmol/L (137-145); Total Protein 6.6 g/dL (6.3-8.2)
[2023-04-25 15:31] LABS: PTT Partial Thromboplastin Tim 34 SECONDS (25.1-36.5)
[2023-04-25 15:33] LABS: NT-proBNP (BNP-Adult 18+) 5960 pg/mL (<125)
[2023-04-25 15:36] LABS: Troponin I 0.053 ng/mL (0.01-0.034)
[2023-04-25 15:38] LABS: D Dimer 480 ng/ml (<500)
[2023-04-25] MEDS: FUROSEMIDE 40 MG/4 ML VIAL IV (16:04)
[2023-04-25] MEDS: NITROGLYCERIN OINT 1 INCH/GM OINT...G. TOP (16:34)
[2023-04-25 16:38] LABS: Influenza A - CEPHEID Flu A NEGATIVE (NEGATIVE); Influenza B - CEPHEID Flu B NEGATIVE (NEGATIVE); Respiratory Syncytial Virus Negative (Negative)
[2023-04-25 16:40] LABS: COVID-19 CEPHEID 4-PLEX PCR Negative (Negative)
[2023-04-25 16:43] LABS: Bacteria Urine None Seen; RBC Urine 0-1/HPF (0-5/HPF); Squamous Epithelial Cell Urine 0-1 /HPF (0-5/HPF); Urine Volume 10mL (spun); WBC Urine 0-1/HPF (0-5/HPF)
[2023-04-25 16:44] LABS: Culture Indicated Urine Cult Not Indicated
[2023-04-25 17:34] LABS: Troponin I 0.055 ng/mL (0.01-0.034)
[2023-04-25] MEDS: METOPROLOL TARTRATE 5 MG/5 ML INJ IV (18:49)
--- NOTE | 2023-04-25 19:07 | PC.NURSE ---
Pt responding well to first dose of 5mg IV metoprolol. BP now 176/[address] Winn updated, said okay to hold additional doses of metoprolol for now.
[2023-04-25] MEDS: METOPROLOL ER 50 MG TABLET PO (19:23)
--- NOTE | 2023-05-01 16:41 | PC.NURSE ---
Patient arrives back to [facility] ER this evening with questions regarding his prescription that was filled on 04/25/23 after his ER evaluation. Patient reports that he will run out of Metoprolol after tomorrows dose, but that he doesn't have enough to get him to his scheduled appointment this coming Tuesday at [facility]. After reviewing chart, patient should have received 30 tablets Metoprolol and 7 tabs of Lasix from pharmacy. [facility] pharmacy in [place] called by this RN to confirm what quantity in prescriptions they filled for patient. They explain that the prescriptions, per their records, was filled correctly. Pharmacist at [facility] pharmacy instructed this RN to tell patient to bring back original prescription bottles and medications he has left for them to the pharmacy and they will ensure he has the correct dose/quantity of each. This information was given to the patient in ER lobby by this RN. He states understanding and has no further questions.
== END 2023-04-25 19:59 | disposition home or self-care (01) ==
PROVIDERS: Emergency Provider Emergency Medicine
DX: I16.0 Hypertensive urgency (principal); I50.9 Heart failure, unspecified; R07.9 Chest pain, unspecified
CPT/HCPCS: 0241U; 36415; 71045; 80053; 81003; 81015; 82550; 83690; 83735; 83880; 84484; 85025; 85379; 85610; 85730; 93005; 93010; 96374; 99284; J1940

== ENCOUNTER 2023-08-30 11:28 | Day surgery (SDC) | payer OTHER, SELFPAY ==
[2020-08-28 17:48] VITALS: BMI 31.1
[2023-08-25 10:59] VITALS: BMI 31.9
--- NOTE | 2023-08-30 | PATH_ITS ---
[facility] Accession Number: [id number] No. of containers..02 Tissue . 01 Material submitted: . PART A: back - LEFT LOWER BACK CYST PART B: back - LEFT UPPER BACK MASS . 01 Diagnosis: A. LEFT LOWER BACK, EXCISION: Epidermal inclusion cyst. . B. LEFT UPPER BACK, EXCISION: Epidermal inclusion cyst. OIT 09/05/2023 1729 Local . 01 Electronically signed: . Yajaira Covington MD, Dermatopathologist NPI- [id number] . 01 Gross description: . A. Received in formalin with two patient identifiers and left lower back cyst, is a tomas spheroid soft tissue fragment, 11.7 x 8.7 x 7.0 cm, with attached unoriented ellipse of skin, 10.9 x 2.5 cm. The external surface is intact and is inked blue. Sectioning reveals a thin smooth-walled cyst filled with tomas grumous material. Valuer sections are submitted in A1-A2. B. Received in formalin with two patient identifiers and left upper back mass, is an ellipse of skin with blue ink at one tip with no designation per the requisition and is now arbitrarily designated 12 o'clock. The specimen measures 3.3 cm from 12-6, 1.3 cm from 3-9, and 0.8 cm thick. Inked as follows: 12-3 orange, 3-6 blue, 6-9-12 green. Serially sectioned from 12-6 into a thin smooth-walled cystic structure, 0.9 cm in greatest dimension filled with tomas grumous material. A termite control service representative section is submitted in B1. ([id number]) /MRV 08/31/2023 1308 Local . 01 Pathologist provided ICD-10: L72.0 . 01 CPT . 511699, 088263 Specimen Comment: A courtesy copy of this report has been sent to [phone] Performed at: [address] [address], [place], [place] [id number] MD Cole Carlos MD Phone: [phone]
[2023-08-30] MEDS: LACTATED RINGERS 1,000 ML 42 ML IV ×2 (11:45→14:29)
[2023-08-30] MEDS: ACETAMINOPHEN 325 MG TABLET 975 MG PO (11:45)
[2023-08-30 12:12] VITALS: BP 187/99; PULSE 87; RESP 16; TEMP 36.6; O2SAT 98; BMI 32.1
--- NOTE | 2023-08-30 12:35 | PM.PREOP ---
Pre-operative Note COVID-19 COVID-19 status: Not tested Interval Note History & Physical reviewed/Exam performed by Physician: Yes Changes to H&P: No ASA Class (for procedural sedation): II
--- NOTE | 2023-08-30 13:42 | SUR.OPER ---
Lateral on a herrera bag, head on pillow, gel axillary roll in place, bottom leg bent with gel pad under knee to foot, upper leg straight and supported with pillows. Upper arm supported by pillows and secured over bottom arm to padded arm board. Safety belt at hip, tape over blanket lower legs.
--- NOTE | 2023-08-30 14:36 | P.OP_ITS ---
Operative Date/Time/Diagnoses Date of procedure: 08/30/23 Time of procedure: 14:36 Pre-op diagnosis: Back masses Post-op diagnosis: same Procedure & Clinicians Procedure: Excisional biopsy of left lower back mass and left upper back mass Same procedure as scheduled: Yes Surgeon: Max Pressley Assembler For Puller Over Hand: Emmett Marin Anesthesia Type: General Operative Notes Procedure in detail: The patient was brought to the operating room and general anesthesia was induced. He was positioned in the right lateral decubitus position and secured on a beanbag. His back was prepped and draped in the usual fashion. We started with a large lower back mass. It is fluctuance suggested it was a fluid-filled cyst. We made a 12 cm elliptical incision and dissected down through the dermis sharply. The cyst wall was encountered and dissection was carried along the cyst wall circumferentially. The cyst extended all way down to the fascia of the lower back. The cyst was completely excised intact with minimal spillage of sebaceous fluid. Once excised the cyst measured 14 cm in greatest dimension. We then irrigated the wound cavity with sterile saline. A few bleeders were cauterized. Some Marcaine was injected into deep tissue. We then closed the skin with multiple interrupted 3-0 Vicryl dermal sutures followed by multiple interrupted 2-0 nylon mattress sutures. We then turned to the left upper back mass which was much smaller. A 7 cm x 3 cm ellipse of skin was made around the mass and the mass was dissected out of the subcutaneous adipose tissue. The wound was then closed in layers using multiple interrupted 3-0 Vicryl dermal sutures followed by multiple interrupted 2-0 nylon mattress sutures. Additional local was injected into the dermis of both wounds. Specimens: Left lower back mass and left upper back mass EBL: 10 mL Post-operative Condition: stable Disposition: PACU
[2023-08-30 14:55] VITALS: BP 138/94; PULSE 73; RESP 12; TEMP 36.9; O2SAT 94
[2023-08-30 15:00] VITALS: BP 119/91; PULSE 75; RESP 14; TEMP 36.9; O2SAT 92
[2023-08-30 15:05] VITALS: BP 141/76; PULSE 75; RESP 14; TEMP 36.9; O2SAT 92
[2023-08-30 15:12] VITALS: BP 139/92; PULSE 83; RESP 14; TEMP 37; O2SAT 95
[2023-08-30 15:17] VITALS: BP 147/78; PULSE 74; RESP 15; O2SAT 95
== END 2023-08-30 15:37 | disposition home or self-care (01) ==
PROVIDERS: PCP Family Medicine; Referring Provider Surgery; Visit Provider Surgery
PROC: (CPT 11406; principal; 2023-08-30 12:45)
DX: L72.0 Epidermal cyst (principal)
CPT/HCPCS: 11406 ×2; 12035; 21931; J0330; J1100; J2405; J2704; J3010

== ENCOUNTER 2023-09-23 03:26 | Emergency (ER) | payer OTHER, SELFPAY ==
[2020-08-28 17:48] VITALS: BMI 31.1
[2023-09-23 03:34] VITALS: PULSE 72; O2SAT 96
[2023-09-23 03:39] VITALS: BP 182/91; PULSE 72; RESP 18; TEMP 36.4; O2SAT 97; BMI 32.1
--- NOTE | 2023-09-23 03:51 | DI.CT.S_ITS ---
PROCEDURE: CT HEAD/BRAIN WO CON INDICATIONS: fall TECHNIQUE: Noncontrast 4.5 mm thick angled axial sections acquired from the foramen magnum to the vertex, with coronal and sagittal reformats. For radiation dose reduction, the following was used: automated exposure control, adjustment of mA and/or kV according to patient size. COMPARISON: None. FINDINGS: Image quality: Diagnostic. CSF spaces: Basal cisterns are patent. No extra-axial fluid collections. Ventricles are normal in size and shape. Brain: No midline shift. No intracranial masses or hemorrhage. Ching-white matter interface is normal. Skull and face: Calvarium and visualized facial bones are intact, without suspicious lesions. Sinuses: Visualized sinuses and mastoids are clear. IMPRESSION: No acute intracranial pathology. Dictated by: Karel Martinez M.D. on 09/23/2023 at 8:09 Approved by: Karel Martinez M.D. on 09/23/2023 at 8:10
[2023-09-23 04:00] VITALS: PULSE 69; O2SAT 96
--- NOTE | 2023-09-23 04:15 | ED_ITS ---
HPI - Fall General Chief Complaint: Altered Mental Status Stated Complaint: fallen twice tonight and acting out of character Time Seen by Provider: 09/23/23 03:47 Source: patient and family Mode of arrival: Ambulatory History of Present Illness HPI Narrative: Patient 68-year-old male history of hypertension, possible congestive heart failure presenting today with falls and altered mental status. He reports that he woke up in his normal state of healthy in his daughters went onto a boat to celebrate the 21 of September. He does admit to drinking all day but he says he was drinking slowly. However as the evening went on he has fallen twice and been acting different than normal. He does not typically drink this heavily but does have a drink or 2. He denies any other substances. He reports that he has had bronchitis for 4 months and he feels like he is just getting over it but really has not been sick. No chest pain or palpitations. No injury from the fall. Records have been reviewed he was seen and evaluated here in April initially thought he had a STEMI but ultimately decided EKG changes were from LVH he was found to have high blood pressure with a systolic in the 200s he now takes metoprolol. He does not feel like he needs to be here is here at the request of his daughters Related Data Previous Rx's Medication Instructions Recorded furosemide 40 mg tablet (Lasix) 40 mg PO DAILY #7 tabs 04/25/23 metoprolol succinate 50 mg 50 mg PO DAILY #30 tabs 04/25/23 tablet,extended release 24 hr Allergies Allergy/AdvReac Type Severity Reaction Status Date / Time No Known Drug Allergies Allergy Verified 09/14/23 10:51 Patient History Medical History Post-COVID syndrome Surgical History No significant past surgical history Family History Grandfather Myocardial infarction Mother Digestive system disease Father Old age Social History household members: children Smoking Status: Never smoker alcohol intake: current Smoking Status: Never smoker alcohol intake frequency: 0-2 drinks per day Alcohol type: hard liquor Substance Use Type: does not use Exam Initial Vital Signs Initial Vital Signs: Vital Signs Pulse Rate 72 09/23/23 03:34 Pulse Oximetry 96 09/23/23 03:34 GENERAL: Alert mildly intoxicated 68-year-old and in [no acute] distress. HEENT: Head atraumatic,EOMI, pupils reactive, face symmetric, [moist] mucous membranes CARDIOVASCULAR: Regular rate and rhythm without murmurs, rubs or gallops. RESPIRATORY: Breath sounds equal bilaterally, no wheezes rales or rhonchi. ABDOMEN: Soft, nontender. Normoactive bowel sounds all 4 quadrants. No guarding or rebound. EXTREMITIES: Normal range of motion, no clubbing or edema. Neurovascularly intact NEUROLOGICAL: Alert and oriented x4.Normal gait and speech. Cranial nerves II through XII grossly intact. [Good hmlduu-hm-soff, good vywr-ti-vads, strength equal bilaterally, no dysarthria or aphasia, sensation in tact to soft touch bilaterally, no visual changes, no facial droop] SKIN: Warm, dry, no laceration, no petechiae, no rashes or lesions. Course Orders Ordered: ED Orders 09/23/23 03:51 CT head/brain wo con Stat 09/23/23 04:16 EKG-12 Lead Stat 09/23/23 04:20 BNP [NT-proBNP (BNP-Adult 18+)] Stat CBC Auto Diff [Complete Blood Count AUTO DIFF] Stat CMP [Comprehensive Metabolic Panel] Stat ETOH [Ethanol (ETOH)] Stat Lipase Stat Troponin & CK Cardiac Panel Stat Urine Drug Screen, Rapid Stat Discontinued Medications Sodium Chloride (Normal Saline 0.9%) 1,000 mls @ 1,000 mls/hr IV BOLUS ONE Stop: 09/23/23 04:50 Last Infusion: 09/23/23 05:00 Dose: Infused Documented By: Admin: 09/23/23 04:30 Dose: 1,000 mls/hr Documented By: AIXA Vital Signs Vital signs: Vital Signs - 8 hr 09/23/23 03:34 09/23/23 03:39 09/23/23 04:00 Temperature 97.5 F L Pulse Rate 72 72 69 Respiratory Rate 18 Blood Pressure 182/91 H Pulse Oximetry 96 97 96 Oxygen Delivery Method Room Air 09/23/23 04:25 09/23/23 04:25 09/23/23 04:30 Temperature Pulse Rate 66 Respiratory Rate Blood Pressure 175/86 H 161/85 H Pulse Oximetry 97 Oxygen Delivery Method 09/23/23 04:30 09/23/23 05:00 09/23/23 05:00 Temperature Pulse Rate 65 65 Respiratory Rate Blood Pressure 166/80 H Pulse Oximetry 95 95 Oxygen Delivery Method MDM - Fall Lab Data 09/23/23 04:20 09/23/23 04:20 Labs: Lab Results 09/23/23 Range/Units 04:20 WBC 6.4 (4.5-11.0) X10^3/uL RBC 4.68 (4.5-5.9) X10^6/uL Hgb 13.8 (13.5-17.5) g/dL Hct 40.6 L (41-53) % MCV 86.7 (80-100) fL MCH 29.4 (26-34) PG MCHC 33.9 (30-36) % RDW 13.8 (11.6-14.8) % Plt Count 213 (150-400) X10^3/uL Neut % (Auto) 64.9 (50-75) % Lymph % (Auto) 18.6 L (25-40) % [place] % (Auto) 12.1 (3-14) % Eos % (Auto) 3.0 (2-4) % Baso % (Auto) 1.4 (0-2) % Neut # (Auto) 4200 (6080-6887) /uL Lymph # (Auto) 1200 (2906-3680) /uL [place] # (Auto) 800 (0-900) /uL Eos # (Auto) 200 (0-450) /uL Baso # (Auto) 100 (0-100) /uL Sodium 143 (137-145) mmol/L Potassium 3.3 L (3.4-5.1) mmol/L Chloride 104 (98-107) mmol/L Carbon Dioxide 27 (22-32) mmol/L BUN 27 H (9-20) mg/dL Creatinine 1.37 H (0.66-1.25) mg/dL Estimated GFR 57 L (>60) mL/min BUN/Creatinine Ratio 19.7 (6-22) Glucose 96 (80-110) mg/dL Calcium 8.8 (8.4-10.2) mg/dL Total Bilirubin 0.5 (0.2-1.3) mg/dL AST 35 (17-59) IU/L ALT 21 (<50) IU/L Alkaline Phosphatase 85 (38-126) U/L Total Creatine Kinase 359 H (55-170) U/L Troponin I 0.037 H (0.01-0.034) ng/mL NT-Pro-B Natriuret Pep 1300 H (<125) pg/mL Total Protein 7.8 (6.3-8.2) g/dL Albumin 4.6 (3.5-5.0) g/dL Globulin 3.2 (1.7-4.1) g/dL Albumin/Globulin Ratio 1.4 (1.0-2.8) Lipase 90 (23-300) U/L U Opiates 300ng/mL cut Negative (Negative) Ur Oxycodone Screen Negative (Negative) Urine Methadone Screen Negative (Negative) Ur Barbiturates Screen Negative (Negative) U Tricyclic Antidepress Negative (Negative) Ur Phencyclidine Scrn Negative (Negative) Ur Amphetamines Screen Negative (Negative) U Methamphetamines Scrn Negative (Negative) Ur MDMA Scrn (Ecstasy) Negative (Negative) U Benzodiazepines Scrn Negative (Negative) Urine Cocaine Screen Negative (Negative) U Marijuana (THC) Screen Negative (Negative) Urine pH Normal (Normal) Urine Specific [place] Normal (Normal) Ethyl Alcohol 135 H ( - 10) mg/dL Ur Creatinine Normal (Normal) Imaging Data CT scan - head: Radiologist's Impression: Preliminary report no acute intracranial abnormality ECG Data Attestation: I personally reviewed and interpreted this ECG as follows: Prior ECG tracings: available for review Interpretation: Normal sinus rhythm rate 64 MI interval 218 QRS 126 QTC 517 T-wave inversions noted in V5 and V6 no acute ST changes there is some evidence of LVH similar to previous EKGs with nonspecific T-wave abnormalities mostly noted in V5 and V6 MDM Narrative Medical decision making narrative: 68-year-old male with history of hypertension presenting today with increasing falls after a day of drinking alcohol. Blood work has been reviewed he has a alcohol level of 135, creatinine is elevated today at 1.3 previously was 1.0, BNP is also elevated 1300 however this is lower than 5960. Patient has an indeterminate troponin his previous troponins 0.05, troponin 0.037 CT head does not show any abnormality Cardiac blood work is lower than what it was previously. He has absolutely no chest pain or palpitations. At this time patient is intoxicated I suspect it was definitely higher prior to arrival and throughout the day. This may or may not have contributed to his falls but I suspect that it did. He is found to have an elevated creatinine 0.3 change. I recommend that he have outpatient follow-up with an echo and stress test. He is denying any sort of chest pain and has all day. Discharge Plan Departure Patient Disposition: Home Clinical Impression: Fall, Alcohol intoxication Activity Restrictions/Additional Instructions: *You have been diagnosed with alcohol intoxication, fall *What to do: At this time I do recommend that you talk with your PCP in regards to further heart evaluation. He probably need an echocardiogram and a stress test. You do have signs left ventricular hypertrophy on your EKGs. *Continue to take medications as directed *Follow up with your primary care provider in 2-3 days or call [phone] *Return to ER if you should have increasing confusion chest pain weakness shortness of or any new, worsening or concerning symptoms Prescriptions: No Action metoprolol succinate 50 mg tablet extended release 24 hr 50 mg PO DAILY Qty: 30 0RF Lasix 40 mg tablet 40 mg PO DAILY Qty: 7 0RF Referrals: Niles Fuchs MD [Primary Care Provider] - Stand Alone Forms: Patient Portal/API
--- NOTE | 2023-09-23 04:16 | EKG_ITS ---
[address] [address] [place] [address] Test Date: 2023-09-23 Pat Name: Sheldon Collado Department: [facility] Room: Gender: Male Wire Tester: AIXA : 1955 Requested By: Order Number: [id number] Reading MD: Maxim Burnett Measurements Intervals [place] Rate: 64 P: 34 UT: 218 QRS: -42 QRSD: 126 T: 76 QT: 502 QTc: 517 Interpretive Statements Sinus rhythm with 1st degree AV block Possible Left atrial enlargement Left axis deviation Left ventricular hypertrophy with QRS widening ( R in aVL , Felice product , Romhilt-Kee ) Nonspecific T wave abnormality Electronically Signed On 09-27-2023 8:59:53 PDT by Maxim Burnett
[2023-09-23 04:25] VITALS: BP 175/86; PULSE 66; O2SAT 97
[2023-09-23 04:30] VITALS: BP 161/85; PULSE 65; O2SAT 95
[2023-09-23] MEDS: SODIUM CHLORIDE 0.9% 1,000 ML 1000 ML IV (04:30)
[2023-09-23 04:32] LABS: Add Manual Diff / Slide Review NO; Basophils Absolute Auto 100 /uL (0-100); Basophils Percent Auto 1.4 % (0-2); Eosinophils Absolute Auto 200 /uL (0-450); Hematocrit 40.6 % (41-53); Hemoglobin 13.8 g/dL (13.5-17.5); Lymphocytes Absolute Auto 1200 /uL (1100-4500); Lymphocytes Percent Auto 18.6 % (25-40); Mean Corpuscular HGB Conc 33.9 % (30-36); Mean Corpuscular Hemoglobin 29.4 PG (26-34); Mean Corpuscular Volume 86.7 fL (80-100); Monocytes Absolute Auto 800 /uL (0-900); Monocytes Percent Auto 12.1 % (3-14); Neutrophils Absolute Auto 4200 /uL (1500-7000); Neutrophils Percent Auto 64.9 % (50-75); Platelet Count 213 X10^3/uL (150-400); Red Blood Cell Count 4.68 X10^6/uL (4.5-5.9); Red Cell Distribution Width 13.8 % (11.6-14.8); White Blood Cell Count 6.4 X10^3/uL (4.5-11.0)
[2023-09-23 04:41] LABS: Alanine Aminotransferase 21 IU/L (<50); Albumin 4.6 g/dL (3.5-5.0); Albumin Globulin Ratio 1.4 (1.0-2.8); Alkaline Phosphatase 85 U/L (38-126); Aspartate Aminotransferase 35 IU/L (17-59); BUN Creatinine Ratio 19.7 (6-22); Bilirubin Total 0.5 mg/dL (0.2-1.3); Blood Urea Nitrogen 27 mg/dL (9-20); Calcium 8.8 mg/dL (8.4-10.2); Carbon Dioxide 27 mmol/L (22-32); Chloride 104 mmol/L (98-107); Estimated Glomerular Filt Rate 57 mL/min (>60); Ethanol (ETOH) 135 mg/dL; Globulin 3.2 g/dL (1.7-4.1); Glucose 96 mg/dL (80-110); HEMOLYSIS < 15 (0-50); Lipase 90 U/L (23-300); Potassium 3.3 mmol/L (3.4-5.1); Sodium 143 mmol/L (137-145); Total Protein 7.8 g/dL (6.3-8.2)
[2023-09-23 04:42] LABS: Creatine Kinase 359 U/L (55-170)
[2023-09-23 04:49] LABS: Ur Creatinine Normal (Normal); Ur Specific Gravity Normal (Normal); Urine Amphetamines Negative (Negative); Urine Barbiturates Negative (Negative); Urine Benzodiazepines Negative (Negative); Urine Cocaine Negative (Negative); Urine MDMA Negative (Negative); Urine Methadone Negative (Negative); Urine Methamphetamines Negative (Negative); Urine Opiates Negative (Negative); Urine Oxycodone Negative (Negative); Urine Phencyclidine Negative (Negative); Urine THC Negative (Negative); Urine Tricyclic Antidepressant Negative (Negative); Urine pH Normal (Normal)
[2023-09-23 04:54] LABS: NT-proBNP (BNP-Adult 18+) 1300 pg/mL (<125); Troponin I 0.037 ng/mL (0.01-0.034)
[2023-09-23 05:00] VITALS: BP 166/80; PULSE 65; O2SAT 95
== END 2023-09-23 05:45 | disposition home or self-care (01) ==
PROVIDERS: Emergency Provider Emergency Medicine; PCP Family Medicine
DX: F10.129 Alcohol abuse with intoxication, unspecified (principal); Y90.6 Blood alcohol level of 120-199 mg/100 ml; W18.30XA Fall on same level, unspecified, initial encounter; R29.6 Repeated falls
CPT/HCPCS: 70450; 80053; 80305; 80320; 82550; 83690; 83880; 84484; 85025; 93005; 99284

== ENCOUNTER 2023-11-03 14:03 | Emergency (ER) | payer OTHER, SELFPAY ==
[2020-08-28 17:48] VITALS: BMI 31.1
[2023-11-03 14:06] VITALS: BP 209/96; PULSE 87; RESP 16; TEMP 36.8; O2SAT 98; BMI 31.6
--- NOTE | 2023-11-03 15:31 | ED_ITS ---
HPI - Skin/Abscess/Foreign Bdy General Chief complaint: Skin/Abscess/Foreign Body Stated complaint: abcess on back, sx 30 days ago Time Seen by Provider: 11/03/23 15:23 Source: patient Mode of arrival: Ambulatory History of Present Illness HPI narrative: Patient is a 68-year-old male. Several weeks ago he underwent a removal of a mass in his lower back. He states that afterwards things seem to be improving however he did not think that everything returned back to normal. Over the past several days/week or more he has had an increase in the swelling in the same area where the incision once was and then last evening it did start to drain. He denies any fevers. He was concerned that maybe there was an infection related to the surgery. He does not know what they removed with the surgery whether was a lipoma or a cyst. He states that prior to the surgical removal of the mass has been there for quite some time. Related Data Previous Rx's Medication Instructions Recorded furosemide 40 mg tablet (Lasix) 40 mg PO DAILY #7 tabs 04/25/23 metoprolol succinate 50 mg 50 mg PO DAILY #30 tabs 04/25/23 tablet,extended release 24 hr Allergies Allergy/AdvReac Type Severity Reaction Status Date / Time No Known Drug Allergies Allergy Verified 09/14/23 10:51 Review of Systems Review of Systems ROS Unobtainable: All systems reviewed & are unremarkable except as noted in HPI and below Patient History Medical History Post-COVID syndrome Surgical History No significant past surgical history Family History Grandfather Myocardial infarction Mother Digestive system disease Father Old age Social History household members: children Smoking Status: Never smoker alcohol intake: current Smoking Status: Never smoker alcohol intake frequency: 0-2 drinks per day Alcohol type: hard liquor Substance Use Type: does not use Exam Initial Vital Signs Initial Vital Signs: Vital Signs Temperature 98.2 F 11/03/23 14:06 Pulse Rate 87 11/03/23 14:06 Respiratory Rate 16 11/03/23 14:06 Blood Pressure 209/96 H 08/15/24 14:06 Pulse Oximetry 98 11/03/23 14:06 Oxygen Delivery Method Room Air 11/03/23 14:06 Const General: cooperative and comfortable Back/Spine/Pelvis Other: There is a large mass noted in the lower lumbar region that is somewhat soft to the touch. Skin Other: Mild redness over the mass in the lower back. There is a small area of serosanguineous drainage at the very far right of the surgical incision. Course Orders Ordered: ED Orders 11/03/23 15:26 Wound Culture and Gram Stain Stat Vital Signs Vital signs: Vital Signs - 8 hr 11/03/23 14:06 Temperature 98.2 F Pulse Rate 87 Respiratory Rate 16 Blood Pressure 209/96 H Pulse Oximetry 98 Oxygen Delivery Method Room Air MDM - Skin/Abscess/Foreign Bdy Medical Records Attestation: I reviewed the patient's medical records. MDM Narrative Medical decision making narrative: Review of the medical record showed that in August he had a fairly large epidermal inclusion cyst removed by General surgery. According to the note it appears that the entire cyst was removed with minimal spillage. I suspect what is happening today as a seroma. I did discuss the case with Dr. Pressley who is on- call for general surgery was also the surgeon who removed the cyst. Based on his exam today I have low suspicion that this is an abscess. It does appear to be fluid filled. A culture was obtained in his pending at the time of discharge. There was some redness over the skin but does not appear to be cellulitic. It appears to be more of an inflammation. Rather than draining the seroma which would require packing and long-term healing the plan to be is to reassure the patient. Will have the patient follow up with general surgery in clinic next week. We will wait for the culture results before starting any antibiotics. Patient was given strict return precautions. He expressed understanding and agreement with the plan. Discharge Plan Departure Patient Disposition: Home Clinical Impression: Seroma Activity Restrictions/Additional Instructions: There was a wound culture pending at the time of your discharge we will contact you if we need to start antibiotics based on this. I recommend you contact the general surgery department for a follow-up next week. Return to the emergency department for new or worsening symptoms. Prescriptions: No Action metoprolol succinate 50 mg tablet extended release 24 hr 50 mg PO DAILY Qty: 30 0RF Lasix 40 mg tablet 40 mg PO DAILY Qty: 7 0RF Referrals: Niles Fuchs MD [Primary Care Provider] - Stand Alone Forms: Patient Portal/API
== END 2023-11-03 16:09 | disposition home or self-care (01) ==
PROVIDERS: Emergency Provider Emergency Medicine; PCP Family Medicine
DX: L76.33 Postprocedural seroma of skin and subcutaneous tissue following a dermatologic procedure (principal)
CPT/HCPCS: 87070; 87075; 87205; 99281; 99282

== ENCOUNTER 2024-02-16 01:17 | Inpatient (IN) | payer OTHER, SELFPAY ==
[2020-08-28 17:48] VITALS: BMI 31.1
[2024-02-16] VITALS (60 sets, daily range): BP systolic 142–242; BP diastolic 72–129; PULSE 87–125; RESP 20–36; TEMP 37–37.9; O2SAT 90–96; BMI 32.1
--- NOTE | 2024-02-16 01:26 | EKG_ITS ---
[address] [address] Test Date: 2024-02-16 Pat Name: Sheldon Collado Department: Room: Gender: Male Diver'S Tender: NYA ELOY : 1955 Requested By: Order Number: [id number] Reading MD: Maxim Burnett Measurements Intervals [place] Rate: 121 P: 33 HI: 142 QRS: -50 QRSD: 128 T: 100 QT: 374 QTc: 531 Interpretive Statements Sinus tachycardia Left axis deviation Left ventricular hypertrophy with QRS widening ( R in aVL , Felice product , Romhilt-Kee ) T wave abnormality, consider lateral ischemia Electronically Signed On 02-16-2024 17:32:26 PST by Maxim Burnett
--- NOTE | 2024-02-16 01:38 | DI.RAD.S_ITS ---
PROCEDURE: XR CHEST 1V INDICATIONS: Cough and shortness of breath TECHNIQUE: One view of the chest was acquired. COMPARISON: [facility], CR, XR CHEST 1V, 04/25/2023, 14:54. FINDINGS: Surgical changes and devices: None. Lungs and pleura: Patchy right basilar opacity. Mediastinum: Mediastinal contours appear normal. Heart size is enlarged. Bones and chest wall: No suspicious bony lesions. Overlying soft tissues appear unremarkable. IMPRESSION: Patchy right basilar opacity most suspicious for pneumonia. Recommend interval follow-up to document resolution exclude presence underlying mass lesion. Dictated by: Alla Oakley M.D. on 02/16/2024 at 2:04 Approved by: Alla Oakley M.D. on 02/16/2024 at 2:05
--- NOTE | 2024-02-16 01:49 | ED_ITS ---
HPI - General Adult General Chief complaint: Hypertension Stated complaint: blood pressure high 220/148 Time Seen by Provider: 02/16/24 01:18 Source: patient Mode of arrival: Ambulatory Limitations: no limitations History of Present Illness HPI narrative: patient is a 68-year-old male. Known history of hypertension. States he is on a medication from his primary doctor but does not know the name of it. This is the 3rd medication that he has been on 2 try to control his blood pressure. He also states he was a prescription for a water pill but he only takes it occasionally. He has been dealing with occasional issues of shortness of breath/dyspnea on exertion/ orthopnea since earlier this year. He states that it comes and goes. There are times when it is worse than others. He states sometimes it gets so bad at night that he can not lay flat. This is what happened to him over the past 24 hours. He states that last evening he could not lay flat because he was so short of breath. He was also been coughing. No chest pain except that he has muscular pain in his chest with coughing. It was nonproductive. No fevers. He states that he was having problems sleeping because of the breathing and coughing that he decided to take his blood pressure. It was significantly elevated with a systolic greater than 220 and a diastolic 140s. He reports no change in lower extremity swelling. No recent travel. Related Data Previous Rx's Medication Instructions Recorded furosemide 40 mg tablet (Lasix) 40 mg PO DAILY #7 tabs 04/25/23 metoprolol succinate 50 mg 50 mg PO DAILY #30 tabs 04/25/23 tablet,extended release 24 hr Allergies Allergy/AdvReac Type Severity Reaction Status Date / Time No Known Drug Allergies Allergy Verified 09/14/23 10:51 Review of Systems Review of Systems ROS Unobtainable: All systems reviewed & are unremarkable except as noted in HPI and below Patient History Medical History Post-COVID syndrome Surgical History No significant past surgical history Family History Grandfather Myocardial infarction Mother Digestive system disease Father Old age Social History household members: children Smoking Status: Never smoker alcohol intake: current Smoking Status: Never smoker alcohol intake frequency: 0-2 drinks per day Alcohol type: hard liquor Substance Use Type: does not use Exam Initial Vital Signs Initial Vital Signs: Vital Signs Pulse Oximetry 94 02/16/24 01:22 Const General: cooperative, comfortable and No ill appearing HENMT Head: normal to inspection and normocephalic Resp Effort & Inspection: cough, labored and tachypneic Auscultation: clear to auscultation bilaterally Cardio Rate: tachycardic Rhythm: regular rhythm GI Inspection: non-distended Skin General: no rashes or lesions noted Neuro General: patient alert, patient awake and patient oriented x3 Extrem General: edema Course Orders Ordered: ED Orders 02/16/24 01:26 EKG-12 Lead Stat 02/16/24 01:38 XR chest 1V Stat 02/16/24 01:50 Respiratory Panel (Film Array) Stat 02/16/24 01:58 Complete Blood Count AUTO DIFF Stat Comprehensive Metabolic Panel Stat Lipase Stat Magnesium Stat NT-proBNP (BNP-Adult 18+) Stat PTT Partial Thromboplastin Cirilo Stat Prothrombin Time INR Stat Troponin & CK Cardiac Panel Stat 02/16/24 02:48 Consult to Physician Stat Consult to Physician Stat Nitroglycerin (Nitroglycerin) 50 mg in 250 mls @ 3 mls/hr IV TITRATE JAYLAN; Protocol Last Admin: 02/16/24 02:51 Dose: 10 mcg/min, 3 mls/hr Documented By: CATRINA Discontinued Medications Hydralazine HCl (Hydralazine 20 Mg/Ml Vial) 10 mg IV NOW ONE Stop: 02/16/24 01:51 Last Admin: 02/16/24 01:59 Dose: 10 mg Documented By: ALICJA Furosemide 60 mg/ Sodium (Chloride) 56 mls @ 112 mls/hr IV NOW ONE Stop: 02/16/24 02:42 Last Admin: 02/16/24 02:51 Dose: 112 mls/hr Documented By: CATRINA Vital Signs Vital signs: Vital Signs - 8 hr 02/16/24 01:22 02/16/24 01:23 02/16/24 01:24 Temperature Pulse Rate 125 H Respiratory Rate Blood Pressure 236/126 H Pulse Oximetry 94 96 Oxygen Delivery Method 02/16/24 01:24 02/16/24 01:30 02/16/24 01:30 Temperature 98.6 F Pulse Rate 125 H 124 H Respiratory Rate 22 Blood Pressure 236/126 H 242/129 H Pulse Oximetry 96 96 Oxygen Delivery Method Room Air 02/16/24 01:30 02/16/24 01:59 02/16/24 02:00 Temperature Pulse Rate 121 H 119 H Respiratory Rate 36 H Blood Pressure 242/129 H 221/119 H Pulse Oximetry 96 Oxygen Delivery Method 02/16/24 02:00 02/16/24 02:15 02/16/24 02:15 Temperature Pulse Rate 117 H 117 H Respiratory Rate 29 H 25 H Blood Pressure 221/118 H Pulse Oximetry 94 94 Oxygen Delivery Method Room Air Medical Decision Making Medical Records Medical records reviewed: Yes I reviewed the patient's medical records. Lab Data Lab results reviewed: Yes I reviewed the patient's lab results. 02/16/24 01:58 02/16/24 01:58 Labs: Lab Results 02/16/24 02/16/24 Range/Units 01:50 01:58 WBC 7.5 (4.5-11.0) X10^3/uL RBC 4.76 (4.5-5.9) X10^6/uL Hgb 13.7 (13.5-17.5) g/dL Hct 41.2 (41-53) % MCV 86.7 (80-100) fL MCH 28.8 (26-34) PG MCHC 33.2 (30-36) % RDW 14.2 (11.6-14.8) % Plt Count 166 (150-400) X10^3/uL Neut % (Auto) 86.1 H (50-75) % Lymph % (Auto) 4.1 L (25-40) % [place] % (Auto) 8.7 (3-14) % Eos % (Auto) 0.9 L (2-4) % Baso % (Auto) 0.2 (0-2) % Neut # (Auto) 6500 (5679-1180) /uL Lymph # (Auto) 300 L (6954-6025) /uL [place] # (Auto) 700 (0-900) /uL Eos # (Auto) 100 (0-450) /uL Baso # (Auto) 0 (0-100) /uL PT 12.7 H (9.4-12.5) SECONDS INR 1.1 (0.9-1.3) APTT 31 (25.1-36.5) SECONDS Sodium 137 (137-145) mmol/L Potassium 3.7 (3.4-5.1) mmol/L Chloride 105 (98-107) mmol/L Carbon Dioxide 25 (22-32) mmol/L BUN 25 H (9-20) mg/dL Creatinine 1.16 (0.66-1.25) mg/dL Estimated GFR > 60 (>60) mL/min BUN/Creatinine Ratio 21.6 (6-22) Glucose 111 H (80-110) mg/dL Calcium 9.1 (8.4-10.2) mg/dL Magnesium 1.6 (1.6-2.3) mg/dL Total Bilirubin 1.0 (0.2-1.3) mg/dL AST 47 (17-59) IU/L ALT 37 (<50) IU/L Alkaline Phosphatase 84 (38-126) U/L Total Creatine Kinase 119 (55-170) U/L Troponin I 0.086 H (0.01-0.034) ng/mL NT-Pro-B Natriuret Pep 6520 H (<125) pg/mL Total Protein 7.1 (6.3-8.2) g/dL Albumin 4.0 (3.5-5.0) g/dL Globulin 3.1 (1.7-4.1) g/dL Albumin/Globulin Ratio 1.3 (1.0-2.8) Lipase 58 (23-300) U/L Chlamy pneumoniae PCR Not detected (Not Detect) Adenovirus (PCR) Not detected (Not Detect) B. pertussis DNA (PCR) Not detected (Not Detect) B.parapertussis DNA PCR Not detected (Not Detecte) Coronavirus OC43 (PCR) Not detected (Not Detect) Coronavirus HKU1 (PCR) Not detected (Not Detect) Coronavirus 229E (PCR) Not detected (Not Detect) SARS-CoV-2 (PCR) Not detected (Not Detecte) Coronavirus NL63 (PCR) Not detected (Not Detect) Human Metapneumovir PCR Not detected (Not Detect) Influenza Type A (PCR) Not detected (Not Detect) Influenza Type B (PCR) Not detected (Not Detect) M. pneumoniae (PCR) Not detected (Not Detect) Parainfluenza 1 (PCR) Not detected (Not Detect) Parainfluenza 2 (PCR) Not detected (Not Detect) Parainfluenza 3 (PCR) Not detected (Not Detect) Parainfluenza 4 (PCR) Detected H (Not Detect) RSV (PCR) Not detected (Not Detect) Entero/Rhino (PCR) Not detected (Not Detect) Imaging Data Chest x-ray: Radiologist's Impression: PROCEDURE: XR CHEST 1V INDICATIONS: Cough and shortness of breath TECHNIQUE: One view of the chest was acquired. COMPARISON: [facility], CR, XR CHEST 1V, 04/25/2023, 14:54. FINDINGS: Surgical changes and devices: None. Lungs and pleura: Patchy right basilar opacity. Mediastinum: Mediastinal contours appear normal. Heart size is enlarged. Bones and chest wall: No suspicious bony lesions. Overlying soft tissues appear unremarkable. IMPRESSION: Patchy right basilar opacity most suspicious for pneumonia. Recommend interval follow-up to document resolution exclude presence underlying mass lesion. ECG Data Attestation: I personally reviewed and interpreted this ECG as follows: Interpretation: Sinus tachycardia with a ventricular rate of 121 Left axis deviation LVH ST depressions in lead 1 and aVL Elevations in lead 3, V3. MDM Narrative Medical decision making narrative: Patient arrived tachycardic. It was sinus tachycardia. He was here because of orthopnea over the past 24 hours. No chest pain except coughing. He was no leukocytosis. No fever. Nonproductive cough and clear lungs. Chest x-ray shows potential pneumonia however review of his medical record shows that he was had chest x-rays in the past that have mentioned pneumonia however clinically he does not have pneumonia. He reports orthopnea. He was lower extremity swelling. His BNP his higher than what it has been in the past. He reports no history of heart failure althoughHis medical record shows that he was had an emergency department visit in the past where there was concern about CHF. Has never had an echocardiogram. patient has significantly elevated blood pressure. His past emergency department visit shows that he has had systolic blood pressures greater than 200 although the patient states when he checks his blood pressure at home it was normally in the 160s to 170s. It sounds that it was fairly infrequent that he takes his blood pressure at home. He was given hydralazine which did improve his blood pressure slightly. Troponin is elevated but is baseline. ST depressions in 1 and aVL are new although rest of his EKG appears to be similar to prior EKGs. He was positive for parainfluenza virus however I suspect that is presentation today is more consistent with hypertensive emergency/CHF. Patient was given Lasix. Was started on nitro. Will start somewhat low in the nitro so we did not drop his blood pressure too fast as he is most likely Auto regulated to having higher blood pressure and we want to avoid causing acute CVA. I do feel the patient would benefit from admission to the hospital for blood pressure control, trending of troponins, echocardiogram, diuresis. Patient was agreeable for admission. Discussed the case with Dr. Fuchs who is the patient's primary doctor will admit for further evaluation. Critical Care Time Critical Care Time Critical Care Time: Yes Total Critical Care Time: 40 Attestation: The high probability of a clinically significant, sudden or life threatening deterioration of the [ Cardiovascular, respiratory] system(s) required my full and direct attention, intervention and personal management. The aggregate critical care time was [40] minutes. This time is in addition to time spent performing reported procedures but includes the following: [x] Data Review and interpretation [x] Patient assessment and monitoring of vital signs [x Documentation [x] Medication orders and management Discharge Plan Departure Patient Disposition: Admitted As Inpatient Clinical Impression: Hypertensive emergency, Infection due to parainfluenza virus 4 Admit Date/Time: 02/16/24 02:49 Admit Provider: Niles Fuchs
[2024-02-16] MEDS: HYDRALAZINE 20 MG/ML VIAL 10 MG IV ×3 (01:59→18:05)
--- NOTE | 2024-02-16 02:06 | PC.NURSE ---
Pt has history of HTN, states takes a med for bp but unsure what it is. pt reports normal bp for his is between 150s-170s.
[2024-02-16 02:11] LABS: INR 1.1 (0.9-1.3); Prothrombin Time 12.7 SECONDS (9.4-12.5)
[2024-02-16 02:12] LABS: Add Manual Diff / Slide Review NO; Basophils Absolute Auto 0 /uL (0-100); Basophils Percent Auto 0.2 % (0-2); Eosinophils Absolute Auto 100 /uL (0-450); Eosinophils Percent Auto 0.9 % (2-4); Hematocrit 41.2 % (41-53); Hemoglobin 13.7 g/dL (13.5-17.5); Lymphocytes Absolute Auto 300 /uL (1100-4500); Lymphocytes Percent Auto 4.1 % (25-40); Mean Corpuscular HGB Conc 33.2 % (30-36); Mean Corpuscular Hemoglobin 28.8 PG (26-34); Mean Corpuscular Volume 86.7 fL (80-100); Monocytes Absolute Auto 700 /uL (0-900); Monocytes Percent Auto 8.7 % (3-14); Neutrophils Absolute Auto 6500 /uL (1500-7000); Neutrophils Percent Auto 86.1 % (50-75); Platelet Count 166 X10^3/uL (150-400); Red Blood Cell Count 4.76 X10^6/uL (4.5-5.9); Red Cell Distribution Width 14.2 % (11.6-14.8); White Blood Cell Count 7.5 X10^3/uL (4.5-11.0)
[2024-02-16 02:14] LABS: PTT Partial Thromboplastin Tim 31 SECONDS (25.1-36.5)
[2024-02-16 02:16] LABS: Alanine Aminotransferase 37 IU/L (<50); Albumin Globulin Ratio 1.3 (1.0-2.8); Alkaline Phosphatase 84 U/L (38-126); Aspartate Aminotransferase 47 IU/L (17-59); BUN Creatinine Ratio 21.6 (6-22); Blood Urea Nitrogen 25 mg/dL (9-20); Calcium 9.1 mg/dL (8.4-10.2); Carbon Dioxide 25 mmol/L (22-32); Chloride 105 mmol/L (98-107); Creatine Kinase 119 U/L (55-170); Estimated Glomerular Filt Rate > 60 mL/min (>60); Globulin 3.1 g/dL (1.7-4.1); Glucose 111 mg/dL (80-110); HEMOLYSIS < 15 (0-50); Lipase 58 U/L (23-300); Magnesium 1.6 mg/dL (1.6-2.3); Potassium 3.7 mmol/L (3.4-5.1); Sodium 137 mmol/L (137-145); Total Protein 7.1 g/dL (6.3-8.2)
[2024-02-16 02:27] LABS: NT-proBNP (BNP-Adult 18+) 6520 pg/mL (<125); Troponin I 0.086 ng/mL (0.01-0.034)
[2024-02-16 02:46] LABS: Adenovirus Not Detected (Not Detect); B. parapertussis Not Detected (Not Detecte); Bordetella pertussis Not Detected (Not Detect); Chlamydophila pneumoniae Not Detected (Not Detect); Coronavirus 229E Not Detected (Not Detect); Coronavirus HKU1 Not Detected (Not Detect); Coronavirus NL 63 Not Detected (Not Detect); Coronavirus OC43 Not Detected (Not Detect); Human Metapneumovirus Not Detected (Not Detect); Human Rhinovirus/Enterovirus Not Detected (Not Detect); Influenza A Not Detected (Not Detect); Influenza B Not Detected (Not Detect); Mycoplasma pneumoniae Not Detected (Not Detect); Parainfluenza Virus 1 Not Detected (Not Detect); Parainfluenza Virus 2 Not Detected (Not Detect); Parainfluenza Virus 3 Not Detected (Not Detect); Parainfluenza Virus 4 Detected (Not Detect); Respiratory Syncytial Virus Not Detected (Not Detect); SARS- CoV-2 Not Detected (Not Detecte)
[2024-02-16] MEDS: FUROSEMIDE 60 MG in SODIUM CHLORIDE 0.9% 50 ML 112 MG IV (02:51)
[2024-02-16] MEDS: NITROGLYCERIN 50 MG/250 ML INFUS..BTL IV (02:51)
[2024-02-16 06:25] LABS: MRSA (Nasal) PCR NOT DETECTED (Not Detect)
[2024-02-16 06:52] LABS: Add Manual Diff / Slide Review NO; Basophils Absolute Auto 100 /uL (0-100); Basophils Percent Auto 0.8 % (0-2); Eosinophils Absolute Auto 0 /uL (0-450); Hematocrit 40.5 % (41-53); Hemoglobin 13.5 g/dL (13.5-17.5); Lymphocytes Absolute Auto 400 /uL (1100-4500); Lymphocytes Percent Auto 5.3 % (25-40); Mean Corpuscular HGB Conc 33.4 % (30-36); Mean Corpuscular Hemoglobin 28.7 PG (26-34); Mean Corpuscular Volume 85.9 fL (80-100); Monocytes Absolute Auto 700 /uL (0-900); Monocytes Percent Auto 9.3 % (3-14); Neutrophils Absolute Auto 6700 /uL (1500-7000); Neutrophils Percent Auto 84.6 % (50-75); Platelet Count 167 X10^3/uL (150-400); Red Blood Cell Count 4.72 X10^6/uL (4.5-5.9); White Blood Cell Count 7.9 X10^3/uL (4.5-11.0)
[2024-02-16 07:03] LABS: BUN Creatinine Ratio 24.2 (6-22); Blood Urea Nitrogen 24 mg/dL (9-20); Calcium 9.1 mg/dL (8.4-10.2); Carbon Dioxide 26 mmol/L (22-32); Chloride 103 mmol/L (98-107); Estimated Glomerular Filt Rate > 60 mL/min (>60); Glucose 102 mg/dL (80-110); HEMOLYSIS < 15 (0-50); Potassium 3.2 mmol/L (3.4-5.1); Sodium 139 mmol/L (137-145)
[2024-02-16 07:15] LABS: Troponin I 0.117 ng/mL (0.01-0.034)
[2024-02-16 07:22] LABS: Magnesium 1.6 mg/dL (1.6-2.3)
--- NOTE | 2024-02-16 09:27 | DI.ECHO.S_ITS ---
[facility] : : [address] : : [place] : : [id number] : : Phone: [phone] Echocardiogram Report + + :Name: MEY SIMON Study Date: 02/17/2024 Height: 71 in : :[facility] ReadingLocation: Weight: 230 lb : : Gender: Male BSA: 2.2 m2 : :: 1955 Age: 68 yrs BP: 142/86 mmHg: :Reason For Study: NEW CONGESTIVE HEART FAILURE : :Ordering Physician: AMANDA, : :MACHELLE Performed By: Debra Osei : :Referring: MACHELLE PATEL : + + Interpretation Summary The left ventricle is moderately dilated. Left ventricular systolic function is severely reduced. The ejection fraction is estimated to be 25-30%. Therer is severe hypokinesis along the inferior and inferoseptal segments and part of distal anterolateral and apical latearl segments as well. Diastolic parameters suggest a restrictive filling pattern consistent with probable significantly elevated filling pressures. The right ventricle is mildly dilated. The right ventricular systolic function is normal. Pulmonary artery pressures cannot be estimated because of the lack of a measurable TR jet velocity. The left atrium is severely dilated. The right atrium is severely dilated. There is mild to moderate mitral regurgitation. There is mild to moderate aortic regurgitation. The aortic root is normal size. Procedure: A two-dimensional transthoracic echocardiogram with color flow and Doppler was performed. The study quality was technically adequate. There is no prior echocardiogram noted for this patient. The heart rate ranged between 82-98 bpm during the study. Left Ventricle: The left ventricle is moderately dilated. Left ventricular wall thickness is mild-moderately increased. A false chord is noted (normal variant). Left ventricular systolic function is severely reduced. The ejection fraction is estimated to be 25-30%. Therer is severe hypokinesis along the inferior and inferoseptal segments and part of distal anterolateral and apical latearl segments as well. Diastolic parameters suggest a restrictive filling pattern consistent with probable significantly elevated filling pressures. Right Ventricle: The right ventricle is mildly dilated. The right ventricular systolic function is normal. Atria: The left atrium is severely dilated. The right atrium is severely dilated. There is no Doppler evidence for an interatrial shunt. Mitral Valve: The mitral valve leaflets appear mildly thickened, but open well. There is mild to moderate mitral regurgitation. Aortic Valve: The aortic valve is trileaflet. The aortic valve is mildly calcified. The aortic valve opens well. There is no aortic valve stenosis. There is mild to moderate aortic regurgitation. Tricuspid Valve: The tricuspid valve is normal in structure and function. There is mild tricuspid regurgitation. Pulmonary artery pressures cannot be estimated because of the lack of a measurable TR jet velocity. Pulmonic Valve: The pulmonic valve is not well seen, but is grossly normal. There is no pulmonic valvular regurgitation. Great Vessels: The aortic root is normal size. The dimensions of the ascending aorta are normal. The IVC is dilated (diameter is greater than 2.1 cm) yet it collapses greater than 50% with a sniff. This suggests a right atrial pressure of 8 mm Hg. Pericardium/ Pleura There is no pericardial effusion. There is no pleural effusion. MMode/2D Measurements & Calculations LVIDd: 6.5 cm LVOT diam: 2.2 cm LVIDs: 5.5 cm Ao root diam: 3.8 cm FS: 15.8 % asc Aorta Diam: 3.8 cm EPSS: 2.0 cm Ao Arch Diam (Prox Trans): 2.7 cm IVSd: 1.5 cm LVPWd: 1.4 cm LV jones. diameter/BSA (cm/m^2): 2.9 LV sys. diameter/BSA (cm/m^2): 2.5 LA A2 area: 30.5 cm2 RA long axis: 6.4 cm LA A4 area: 33.6 cm2 RA area: 29.4 cm2 LA length (vol): 6.4 cm RA vol: 115.1 ml LA vol: 136.1 ml RA : 51.4 ml/m2 LA vol index: 60.8 ml/m2 IVC diam: 2.2 cm RVD1 (basal): 4.7 cm TAPSE: 1.8 cm Doppler Measurements & Calculations Ao V2 max: 171.4 cm/sec LVOT Max Rj: 96.5 cm/sec Ao V2 mean: 115.8 cm/sec LV V1 max P.7 mmHg Ao max P.9 mmHg LV V1 VTI: 18.7 cm Ao mean P.3 mmHg SUDHEER(I,D): 2.4 cm2 Ao V2 VTI: 30.2 cm SUDHEER(V,D): 2.2 cm2 sev ratio: 0.62 SUDHEER indexed to BSA (cm^2/m^2): 1.1 AI P1/2t: 629.4 msec AI dec slope: 220.5 cm/sec2 MV E max rj: 91.0 cm/sec PA V2 max: 98.3 cm/sec MV A max rj: 43.9 cm/sec PA V2 mean: 66.5 cm/sec MV E/A: 2.1 PA mean P.0 mmHg Med Peak E' Rj: 4.8 cm/sec PA pr(Accel): 41.3 mmHg E/E' med: 18.9 Lat Peak E' Rj: 7.5 cm/sec E/E' lat: 12.1 E/e' average: 15.5 MV dec time: 0.18 sec MR ERO: 0.11 cm2 MR PISA: 1.6 cm2 SV(LVOT): 71.8 ml MR flow rate: 60.8 cm3/sec MR PISA radius: 0.51 cm Reading Physician:09:17 AM
[2024-02-16] MEDS: LOSARTAN 25 MG TABLET PO ×2 (09:44→20:07)
[2024-02-16] MEDS: FUROSEMIDE 20 MG/2 ML VIAL IV (09:44)
[2024-02-16] MEDS: ENOXAPARIN 40 MG/0.4 ML SYRINGE SUBCUT (09:44)
[2024-02-16] MEDS: cefTRIAXone 2,000 MG in SODIUM CHLORIDE 0.9% 100 ML 200 MG IV (09:44)
[2024-02-16] MEDS: POTASSIUM CHLORIDE 20 MEQ TAB 40 MEQ PO ×2 (09:45→15:30)
--- NOTE | 2024-02-16 10:14 | PM.HP.1 ---
History of Present Illness History of Present Illness Date Patient Seen: 02/16/24 Time Patient Seen: 10:15 Date of Onset of Symptoms: 02/09/24 Chief complaint: blood pressure high 220/148 Narrative: Patient is a 68-year-old male patient of who I am cross covering for who presents with primarily cough. Patient with approximately a one-week history of cough which seems to be worsening. Seems to get worse at night. Nonproductive. Mild shortness of breath. Feels as if it was getting worse over the last 24 hours. Got worse at night. Maybe felt a little short of breath but primarily he was coughing so much he threw up. So he came to the emergency room. Patient has a history of significantly elevated blood pressure. Which has not been controlled. Apparently they have used several different medicines. Was last put on losartan/hydrochlorothiazide. Although he has not sure if he was taking it. He has had no chest pain. His blood pressures have been running in the 170s over 100 at home. Apparently has been like this for years. Feels like he was told that sometimes people just run high. Has been working with his primary care doctor to get this improved. Without other changes. He has had no headaches, no visual symptoms, no numbness or tingling no arm issues. 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 Has otherwise been feeling well. Patient's primary shows been his pulmonary issues with nonproductive cough. Patient apparently has had pneumonia in the past. But has not had follow-up chest x-rays. Patient has had no orthopnea classically or PND. No edema in his legs. Or other changes. Patient is a never smoker. Past medical history is significant for hypertension no other significant issues. Past surgical history is negative. COUNTS INCLUDE 234 BEDS AT THE [facility] Medical History Post-COVID syndrome Surgical History No significant past surgical history Family History Grandfather Myocardial infarction Mother Digestive system disease Father Old age Social History household members: children Smoking Status: Never smoker alcohol intake: current Meds Home Medications and Allergies Home Medications Medication Instructions Recorded Confirmed Type furosemide 40 mg tablet (Lasix) 40 mg PO DAILY #7 tabs 04/25/23 08/30/23 Rx metoprolol succinate 50 mg 50 mg PO DAILY #30 tabs 04/25/23 08/30/23 Rx tablet,extended release 24 hr Allergies Allergy/AdvReac Type Severity Reaction Status Date / Time No Known Drug Allergies Allergy Verified 09/14/23 10:51 Review of Systems Review of Systems Narrative: See above otherwise negative Exam Vital Signs (past 8 hours): - 02/16/24 02:15 02/16/24 02:15 02/16/24 02:30 Temperature Pulse Rate 117 H 116 H Respiratory Rate 25 H 27 H Blood Pressure 221/118 H Pulse Oximetry 94 93 Oxygen Delivery Method Room Air 02/16/24 02:30 02/16/24 02:45 02/16/24 02:45 Temperature Pulse Rate 116 H Respiratory Rate 27 H Blood Pressure 219/117 H 218/114 H Pulse Oximetry 93 Oxygen Delivery Method 02/16/24 02:54 02/16/24 02:56 02/16/24 03:00 Temperature Pulse Rate 114 H Respiratory Rate Blood Pressure 218/114 H 216/115 H Pulse Oximetry Oxygen Delivery Method Room Air 02/16/24 03:00 02/16/24 03:15 02/16/24 03:15 Temperature Pulse Rate 116 H 114 H Respiratory Rate 27 H 25 H Blood Pressure 214/115 H Pulse Oximetry 93 93 Oxygen Delivery Method 02/16/24 03:30 02/16/24 03:30 02/16/24 07:34 Temperature Pulse Rate 110 H 87 Respiratory Rate 27 H 21 Blood Pressure 202/100 H Pulse Oximetry 92 92 Oxygen Delivery Method 02/16/24 08:00 02/16/24 08:00 02/16/24 08:00 Temperature Pulse Rate 93 H Respiratory Rate 24 Blood Pressure 169/95 H Pulse Oximetry 93 Oxygen Delivery Method Room Air 02/16/24 08:30 02/16/24 09:00 02/16/24 09:00 Temperature Pulse Rate 90 90 Respiratory Rate 26 H 22 Blood Pressure 188/86 H Pulse Oximetry 92 93 Oxygen Delivery Method 02/16/24 09:05 02/16/24 09:05 02/16/24 09:31 Temperature 100.2 F H Pulse Rate 93 H Respiratory Rate 27 H Blood Pressure 176/88 H Pulse Oximetry 93 Oxygen Delivery Method 02/16/24 09:44 Temperature Pulse Rate 90 Respiratory Rate Blood Pressure 183/88 H Pulse Oximetry Oxygen Delivery Method Oxygen Delivery Method Room Air Narrative Exam Narrative: Alert elderly male lying in bed no acute distress. HEENT exam is unremarkable. Neck supple without adenopathy JVD or bruits. Lung with right-sided rhonchi. With no other changes. No crackles. Heart regular rate and rhythm without murmurs. Abdomen is soft positive bowel sounds nontender. Extremities without cyanosis clubbing edema. Neurologic exam is unremarkable. Objective Labs 02/16/24 04:50 02/16/24 04:50 Labs: Laboratory Results - last 24 hr 02/16/24 02/16/24 02/16/24 01:50 01:58 04:45 WBC 7.5 RBC 4.76 Hgb 13.7 Hct 41.2 MCV 86.7 MCH 28.8 MCHC 33.2 RDW 14.2 Plt Count 166 Neut % (Auto) 86.1 H Lymph % (Auto) 4.1 L [place] % (Auto) 8.7 Eos % (Auto) 0.9 L Baso % (Auto) 0.2 Neut # (Auto) 6500 Lymph # (Auto) 300 L [place] # (Auto) 700 Eos # (Auto) 100 Baso # (Auto) 0 PT 12.7 H INR 1.1 APTT 31 Sodium 137 Potassium 3.7 Chloride 105 Carbon Dioxide 25 BUN 25 H Creatinine 1.16 Estimated GFR > 60 BUN/Creatinine Ratio 21.6 Glucose 111 H Calcium 9.1 Magnesium 1.6 Total Bilirubin 1.0 AST 47 ALT 37 Alkaline Phosphatase 84 Total Creatine Kinase 119 Troponin I 0.086 H NT-Pro-B Natriuret Pep 6520 H Total Protein 7.1 Albumin 4.0 Globulin 3.1 Albumin/Globulin Ratio 1.3 Lipase 58 Nasal Screen MRSA (PCR) Not detected Chlamy pneumoniae PCR Not detected Adenovirus (PCR) Not detected B. pertussis DNA (PCR) Not detected B.parapertussis DNA PCR Not detected Coronavirus OC43 (PCR) Not detected Coronavirus HKU1 (PCR) Not detected Coronavirus 229E (PCR) Not detected SARS-CoV-2 (PCR) Not detected Coronavirus NL63 (PCR) Not detected Human Metapneumovir PCR Not detected Influenza Type A (PCR) Not detected Influenza Type B (PCR) Not detected M. pneumoniae (PCR) Not detected Parainfluenza 1 (PCR) Not detected Parainfluenza 2 (PCR) Not detected Parainfluenza 3 (PCR) Not detected Parainfluenza 4 (PCR) Detected H RSV (PCR) Not detected Entero/Rhino (PCR) Not detected 02/16/24 04:50 WBC 7.9 RBC 4.72 Hgb 13.5 Hct 40.5 L MCV 85.9 MCH 28.7 MCHC 33.4 RDW 14.0 Plt Count 167 Neut % (Auto) 84.6 H Lymph % (Auto) 5.3 L [place] % (Auto) 9.3 Eos % (Auto) 0.0 L Baso % (Auto) 0.8 Neut # (Auto) 6700 Lymph # (Auto) 400 L [place] # (Auto) 700 Eos # (Auto) 0 Baso # (Auto) 100 PT INR APTT Sodium 139 Potassium 3.2 L Chloride 103 Carbon Dioxide 26 BUN 24 H Creatinine 0.99 Estimated GFR > 60 BUN/Creatinine Ratio 24.2 H Glucose 102 Calcium 9.1 Magnesium 1.6 Total Bilirubin AST ALT Alkaline Phosphatase Total Creatine Kinase Troponin I 0.117 H NT-Pro-B Natriuret Pep Total Protein Albumin Globulin Albumin/Globulin Ratio Lipase Nasal Screen MRSA (PCR) Chlamy pneumoniae PCR Adenovirus (PCR) B. pertussis DNA (PCR) B.parapertussis DNA PCR Coronavirus OC43 (PCR) Coronavirus HKU1 (PCR) Coronavirus 229E (PCR) SARS-CoV-2 (PCR) Coronavirus NL63 (PCR) Human Metapneumovir PCR Influenza Type A (PCR) Influenza Type B (PCR) M. pneumoniae (PCR) Parainfluenza 1 (PCR) Parainfluenza 2 (PCR) Parainfluenza 3 (PCR) Parainfluenza 4 (PCR) RSV (PCR) Entero/Rhino (PCR) Assessment & Plan Assessment & Plan narrative: Right-sided pneumonia. Patient with positive parainfluenza. Would think that would be a more diffuse finding on x-ray if this was a viral pneumonia. Patient with persistent cough. Which is his primary issue. Reviewed previous x-ray which shows bilateral lower infiltrates. Patient without fever or white count. Due to the findings on exam which isn't consistent with his x-ray will start Rocephin and Zithromax. Re-evaluate in a.m.. Congestive heart failure. Patient was probable left ventricular hypertrophy. Seems to be maybe worse since last EKG. Probably secondary to poorly controlled hypertension. Will continue Lasix IV. Will obtain echo to define cardiac function and re-evaluate after that. BNP a.m.. Hypokalemia. As per pharmacy protocol. May get worse given the fact that we are continuing IV Lasix. Hypertension crisis. Not sure this is a crisis over his baseline. It is difficult to tell. Certainly concerning. Given his EKG changes and his history of poorly controlled blood pressure. Reviewed chart recently put on losartan. Not sure patient has received it yet. With his possible congestive heart failure losartan will be a good choice. And will start today. Currently on nitroglycerin. Hopefully we can wean him off that as we get onto a better blood pressure. As long as we can keep him under 160 I would be happy initially. Discussed with the patient. Elevated troponin. Slightly increased this morning. EKG shows ST depressions in 1 and aVL and depression in 3. Does have LVH. Slightly improved this morning. Concerning for possible subendocardial injury. Will discuss with Cardiology. See what their recommendation is. DVT prophylaxis Lovenox SCDs. Code status full. Disposition. 1 hours spent chart review discussion with nurses patient orders dictation Time-Based Coding :: [TOTAL MINUTES] spent with patient and on the chart (including review of chart, obtaining history, exam, reviewing outside data, placing orders, documenting exam and treatment plan, and counseling patient) on [DATE].
[2024-02-16 10:28] LABS: Creatine Kinase 105 U/L (55-170)
--- NOTE | 2024-02-16 10:38 | EKG_ITS ---
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
[2024-02-16 10:42] LABS: Troponin I 0.129 ng/mL (0.01-0.034)
--- NOTE | 2024-02-16 10:58 | PM.PN.1 ---
Subjective Subjective Date Patient Seen: 02/16/24 Interval history: Patient feeling about the same. Slightly better. Exam Vital Signs (past 8 hours): - 02/16/24 03:00 02/16/24 03:00 02/16/24 03:15 Temperature Pulse Rate 116 H Respiratory Rate 27 H Blood Pressure 216/115 H 214/115 H Pulse Oximetry 93 Oxygen Delivery Method 02/16/24 03:15 02/16/24 03:30 02/16/24 03:30 Temperature Pulse Rate 114 H 110 H Respiratory Rate 25 H 27 H Blood Pressure 202/100 H Pulse Oximetry 93 92 Oxygen Delivery Method 02/16/24 07:34 02/16/24 08:00 02/16/24 08:00 Temperature Pulse Rate 87 93 H Respiratory Rate 21 24 Blood Pressure 169/95 H Pulse Oximetry 92 93 Oxygen Delivery Method 02/16/24 08:00 02/16/24 08:30 02/16/24 09:00 Temperature Pulse Rate 90 90 Respiratory Rate 26 H 22 Blood Pressure Pulse Oximetry 92 93 Oxygen Delivery Method Room Air 02/16/24 09:00 02/16/24 09:05 02/16/24 09:05 Temperature Pulse Rate 93 H Respiratory Rate 27 H Blood Pressure 188/86 H 176/88 H Pulse Oximetry 93 Oxygen Delivery Method 02/16/24 09:31 02/16/24 09:44 Temperature 100.2 F H Pulse Rate 90 Respiratory Rate Blood Pressure 183/88 H Pulse Oximetry Oxygen Delivery Method Oxygen Delivery Method Room Air Narrative Exam Narrative: No change Objective Labs 02/16/24 04:50 02/16/24 04:50 Labs: Laboratory Results - last 24 hr 02/16/24 02/16/24 02/16/24 01:50 01:58 04:45 WBC 7.5 RBC 4.76 Hgb 13.7 Hct 41.2 MCV 86.7 MCH 28.8 MCHC 33.2 RDW 14.2 Plt Count 166 Neut % (Auto) 86.1 H Lymph % (Auto) 4.1 L [place] % (Auto) 8.7 Eos % (Auto) 0.9 L Baso % (Auto) 0.2 Neut # (Auto) 6500 Lymph # (Auto) 300 L [place] # (Auto) 700 Eos # (Auto) 100 Baso # (Auto) 0 PT 12.7 H INR 1.1 APTT 31 Sodium 137 Potassium 3.7 Chloride 105 Carbon Dioxide 25 BUN 25 H Creatinine 1.16 Estimated GFR > 60 BUN/Creatinine Ratio 21.6 Glucose 111 H Calcium 9.1 Magnesium 1.6 Total Bilirubin 1.0 AST 47 ALT 37 Alkaline Phosphatase 84 Total Creatine Kinase 119 Troponin I 0.086 H NT-Pro-B Natriuret Pep 6520 H Total Protein 7.1 Albumin 4.0 Globulin 3.1 Albumin/Globulin Ratio 1.3 Lipase 58 Nasal Screen MRSA (PCR) Not detected Chlamy pneumoniae PCR Not detected Adenovirus (PCR) Not detected B. pertussis DNA (PCR) Not detected B.parapertussis DNA PCR Not detected Coronavirus OC43 (PCR) Not detected Coronavirus HKU1 (PCR) Not detected Coronavirus 229E (PCR) Not detected SARS-CoV-2 (PCR) Not detected Coronavirus NL63 (PCR) Not detected Human Metapneumovir PCR Not detected Influenza Type A (PCR) Not detected Influenza Type B (PCR) Not detected M. pneumoniae (PCR) Not detected Parainfluenza 1 (PCR) Not detected Parainfluenza 2 (PCR) Not detected Parainfluenza 3 (PCR) Not detected Parainfluenza 4 (PCR) Detected H RSV (PCR) Not detected Entero/Rhino (PCR) Not detected 02/16/24 02/16/24 04:50 10:05 WBC 7.9 RBC 4.72 Hgb 13.5 Hct 40.5 L MCV 85.9 MCH 28.7 MCHC 33.4 RDW 14.0 Plt Count 167 Neut % (Auto) 84.6 H Lymph % (Auto) 5.3 L [place] % (Auto) 9.3 Eos % (Auto) 0.0 L Baso % (Auto) 0.8 Neut # (Auto) 6700 Lymph # (Auto) 400 L [place] # (Auto) 700 Eos # (Auto) 0 Baso # (Auto) 100 PT INR APTT Sodium 139 Potassium 3.2 L Chloride 103 Carbon Dioxide 26 BUN 24 H Creatinine 0.99 Estimated GFR > 60 BUN/Creatinine Ratio 24.2 H Glucose 102 Calcium 9.1 Magnesium 1.6 Total Bilirubin AST ALT Alkaline Phosphatase Total Creatine Kinase 105 Troponin I 0.117 H 0.129 H* NT-Pro-B Natriuret Pep Total Protein Albumin Globulin Albumin/Globulin Ratio Lipase Nasal Screen MRSA (PCR) Chlamy pneumoniae PCR Adenovirus (PCR) B. pertussis DNA (PCR) B.parapertussis DNA PCR Coronavirus OC43 (PCR) Coronavirus HKU1 (PCR) Coronavirus 229E (PCR) SARS-CoV-2 (PCR) Coronavirus NL63 (PCR) Human Metapneumovir PCR Influenza Type A (PCR) Influenza Type B (PCR) M. pneumoniae (PCR) Parainfluenza 1 (PCR) Parainfluenza 2 (PCR) Parainfluenza 3 (PCR) Parainfluenza 4 (PCR) RSV (PCR) Entero/Rhino (PCR) FORMERLY [facility], 1928–1983 Medical History Post-COVID syndrome Surgical History No significant past surgical history Family History Grandfather Myocardial infarction Mother Digestive system disease Father Old age Social History household members: children Smoking Status: Never smoker alcohol intake: current Assessment & Plan Assessment & Plan narrative: Elevated troponin. Discussed EKG changes and troponin elevation with manager cardiac Dr. Bautista. He feels given the LVH the hypertension elevated BNP and EKG changes are most consistent with congestive heart failure. Does not feel like he is actively having cardiac event. Recommends continued gentle diuresis and echo which were already ordered and close follow-up. Any change will rediscuss. Time-Based Coding :: [TOTAL MINUTES] spent with patient and on the chart (including review of chart, obtaining history, exam, reviewing outside data, placing orders, documenting exam and treatment plan, and counseling patient) on [DATE].
[2024-02-16] MEDS: AZITHROMYCIN 500 MG in DEXTROSE 5% IN WATER 250 ML 250 MG IV (11:42)
[2024-02-16 18:13] LABS: Creatine Kinase 91 U/L (55-170)
[2024-02-16 18:35] LABS: Troponin I 0.125 ng/mL (0.01-0.034)
--- NOTE | 2024-02-16 19:11 | PC.NURSE ---
Pt able to tolerate dangling and standing at bedside, able to walk in room SBA, denies dizziness, lightheadedness, and SOB upon ambulation. Tolerating meals. Off nitroglycerin drip at 1800. Care ongoing.
[2024-02-17] VITALS (58 sets, daily range): BP systolic 112–162; BP diastolic 64–90; PULSE 74–107; RESP 15–38; TEMP 36.4–36.9; O2SAT 88–97
[2024-02-17 05:09] LABS: Add Manual Diff / Slide Review NO; Basophils Absolute Auto 0 /uL (0-100); Basophils Percent Auto 0.5 % (0-2); Eosinophils Absolute Auto 0 /uL (0-450); Eosinophils Percent Auto 0.1 % (2-4); Hematocrit 41.9 % (41-53); Hemoglobin 13.9 g/dL (13.5-17.5); Lymphocytes Absolute Auto 800 /uL (1100-4500); Mean Corpuscular HGB Conc 33.3 % (30-36); Mean Corpuscular Hemoglobin 28.8 PG (26-34); Mean Corpuscular Volume 86.4 fL (80-100); Monocytes Absolute Auto 1200 /uL (0-900); Neutrophils Absolute Auto 5800 /uL (1500-7000); Neutrophils Percent Auto 74.4 % (50-75); Platelet Count 161 X10^3/uL (150-400); Red Blood Cell Count 4.84 X10^6/uL (4.5-5.9); Red Cell Distribution Width 14.2 % (11.6-14.8); White Blood Cell Count 7.8 X10^3/uL (4.5-11.0)
[2024-02-17 05:38] LABS: Alanine Aminotransferase 35 IU/L (<50); Albumin 3.8 g/dL (3.5-5.0); Albumin Globulin Ratio 1.4 (1.0-2.8); Alkaline Phosphatase 77 U/L (38-126); Aspartate Aminotransferase 45 IU/L (17-59); BUN Creatinine Ratio 19.8 (6-22); Bilirubin Total 1.2 mg/dL (0.2-1.3); Blood Urea Nitrogen 21 mg/dL (9-20); Calcium 8.7 mg/dL (8.4-10.2); Carbon Dioxide 29 mmol/L (22-32); Chloride 102 mmol/L (98-107); Estimated Glomerular Filt Rate > 60 mL/min (>60); Globulin 2.7 g/dL (1.7-4.1); Glucose 96 mg/dL (80-110); HEMOLYSIS < 15 (0-50); Potassium 3.3 mmol/L (3.4-5.1); Sodium 138 mmol/L (137-145); Total Protein 6.5 g/dL (6.3-8.2)
[2024-02-17 06:05] LABS: NT-proBNP (BNP-Adult 18+) 4360 pg/mL (<125)
[2024-02-17] MEDS: FUROSEMIDE 20 MG/2 ML VIAL IV (08:33)
[2024-02-17] MEDS: LOSARTAN 25 MG TABLET PO ×2 (08:33→21:01)
--- NOTE | 2024-02-17 09:02 | CM.DANOTE ---
Initial DCP Assessment Visit Note Reviewed EMR and team rounds for status updates. Did not meet with pt in the room due to viral parainfluenza and copious amount of coughing. 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 His family will be transporting him home once he's medically cleared for d/c. No CM assistance needs are identified at this time. Payor: Anh Arroyo PCP: Dr. Fuchs Pt is a 68 year-old M with a hx of hypertension, on his third medication in an effort to achieve better control. He presented to the ED with c/o 24-hours of worsening SOB, cough, and he's unable to lay flat without difficulty breathing. Chest x-ray in the ED was positive for R-sided pneumonia, labs were positive for parainfluenza, and he had positive troponins. He was given Nitro, started on IV Lasix, and IV antibiotics. Plan was to admit to ICU for blood pressure control, tranding of troponins, IV antibiotic tx, ECHO, and diuresis. DCP will continue to monitor for any further evolving needs, however none are anticipated at this time. Discharge Planning/Care Management CM Discharge Assessment Start: 02/17/24 09:00 Freq: Status: Active Protocol: Document 02/17/24 09:01 DPL (Rec: 02/17/24 09:02 DPL [id number]) Discharge Planning Assessment Assigned Industrial Safety And Health Manager AVTAR Steve Advance Directives? No History Provided By Patient,Medical Record Has Patient been admitted in last 30 No days? Prior Living Arrangements House Household Members children Type of transporation used prior to Drives own vehicle admit Independent with ADL's Yes Is patient alert and oriented? Yes Comment N/A Caregiver for Another No Comment No identified home d/c needs at this time. Barriers to Discharge No Discharge Plan Home Transportation Arrangement Family Referrals Initiated None needed Whiteboard Updated in Patient Room with Yes name and ext. # of Industrial Safety And Health Manager Review Status In Process Please Provide Date Initial DC 02/17/24 Assessment Was Performed
--- NOTE | 2024-02-17 09:47 | EKG_ITS ---
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
[2024-02-17] MEDS: cefTRIAXone 2,000 MG in SODIUM CHLORIDE 0.9% 100 ML 200 MG IV (10:38)
--- NOTE | 2024-02-17 10:53 | PM.PN.1 ---
Subjective Subjective Date Patient Seen: 02/17/24 Time Patient Seen: 10:54 Interval history: Patient seen in follow-up of congestive heart failure elevated troponin right-sided pneumonia. Patient feeling better today. No shortness of breath. Cough is improving. No chest pain. Blood pressure has improved. Off of hydralazine and nitro. No new complaints or problems. Exam Vital Signs (past 8 hours): - 02/17/24 03:00 02/17/24 03:30 02/17/24 04:00 Temperature 97.6 F Pulse Rate 92 H 87 74 Respiratory Rate 18 21 19 Blood Pressure 160/78 H 144/84 H Pulse Oximetry 88 L 92 96 Oxygen Delivery Method Oxygen Flow Rate 0 02/17/24 04:00 02/17/24 04:30 02/17/24 05:00 Temperature Pulse Rate 87 90 94 H Respiratory Rate 20 18 25 H Blood Pressure 142/86 H Pulse Oximetry 92 91 93 Oxygen Delivery Method Oxygen Flow Rate 02/17/24 05:30 02/17/24 06:00 02/17/24 06:30 Temperature Pulse Rate 84 85 84 Respiratory Rate 19 19 18 Blood Pressure Pulse Oximetry 93 93 94 Oxygen Delivery Method Oxygen Flow Rate 02/17/24 07:00 02/17/24 07:30 02/17/24 08:00 Temperature Pulse Rate 100 H 80 95 H Respiratory Rate 32 H 19 25 H Blood Pressure Pulse Oximetry 94 91 92 Oxygen Delivery Method Oxygen Flow Rate 02/17/24 08:15 02/17/24 08:15 02/17/24 08:30 Temperature Pulse Rate 83 87 Respiratory Rate 20 21 Blood Pressure 162/89 H Pulse Oximetry 94 94 Oxygen Delivery Method Oxygen Flow Rate 02/17/24 08:33 02/17/24 09:01 Temperature Pulse Rate 89 Respiratory Rate Blood Pressure 162/88 H Pulse Oximetry Oxygen Delivery Method Room Air Oxygen Flow Rate Oxygen Delivery Method Room Air Oxygen Flow Rate 0 Narrative Exam Narrative: Alert male sitting in chair in no acute distress Mucous membranes moist neck supple without adenopathy lungs are with occasional rhonchi in the right side. No crackles. Heart is regular rate and rhythm without murmur click rub or gallops. Abdomen is benign. Extremities without cyanosis clubbing edema Objective Labs 02/17/24 04:06 02/17/24 04:06 Labs: Laboratory Results - last 24 hr 02/16/24 02/17/24 17:50 04:06 WBC 7.8 RBC 4.84 Hgb 13.9 Hct 41.9 MCV 86.4 MCH 28.8 MCHC 33.3 RDW 14.2 Plt Count 161 Neut % (Auto) 74.4 Lymph % (Auto) 10.0 L [place] % (Auto) 15.0 H Eos % (Auto) 0.1 L Baso % (Auto) 0.5 Neut # (Auto) 5800 Lymph # (Auto) 800 L [place] # (Auto) 1200 H Eos # (Auto) 0 Baso # (Auto) 0 Sodium 138 Potassium 3.3 L Chloride 102 Carbon Dioxide 29 BUN 21 H Creatinine 1.06 Estimated GFR > 60 BUN/Creatinine Ratio 19.8 Glucose 96 Calcium 8.7 Total Bilirubin 1.2 AST 45 ALT 35 Alkaline Phosphatase 77 Total Creatine Kinase 91 Troponin I 0.125 H* NT-Pro-B Natriuret Pep 4360 H Total Protein 6.5 Albumin 3.8 Globulin 2.7 Albumin/Globulin Ratio 1.4 PFSH Medical History Post-COVID syndrome Surgical History No significant past surgical history Family History Grandfather Myocardial infarction Mother Digestive system disease Father Old age Social History household members: children Smoking Status: Never smoker alcohol intake: current Assessment & Plan Assessment & Plan narrative: Congestive heart failure. Echo shows significant reduction in ejection fraction at 25-30%. Multiple areas of hypokinesis. Discussed with Dr. Bautista. Patient needs urgent follow-up with him and he will have that set up so that when we do the referral he will work that out. Recommendations for going on carvedilol today at 0.625 b.i.d. and then tomorrow increasing that. Will continue on losartan at current dose. No other new changes. Will continue Lasix. Had 5 L out yesterday. Will continue 20 IV today. Switch to orals tomorrow. Right-sided pneumonia. Actually cough seems to be improving. White count continues to be normal. Will continue IV therapy today and switch to oral tomorrow. Hypokalemia improved. No other change. We will continue with pharmacy protocol. Elevated troponin. EKG shows improving ST depression in 1 and aVL. And decreased elevation in 3. Medical Collections Representative feels as if this is secondary to his hypertensive heart disease and failure. Not requiring immediate intervention. Discussed with the patient that may need heart catheterization depending on how he responds to medical therapy. Seems to be doing well in his asymptomatic. Discussed this with the patient and family. Hypertension crisis. Improved on losartan. Will keep losartan at current dose add carvedilol and re-evaluate. Re-evaluate a.m.. Will be going up on carvedilol if he tolerates. Pulses good right now. Will see how things go. DVT prophylaxis on Lovenox. SCDs. Code status full. Disposition. Hopefully home on Tuesday but will see how things go. No other significant change. But doing well. 1 hour spent with the patient family nursing discharge planner dictation orders Time-Based Coding :: [TOTAL MINUTES] spent with patient and on the chart (including review of chart, obtaining history, exam, reviewing outside data, placing orders, documenting exam and treatment plan, and counseling patient) on [DATE].
[2024-02-17] MEDS: carvediloL 3.125 MG TABLET 6.25 MG PO ×2 (11:19→21:01)
[2024-02-17] MEDS: AZITHROMYCIN 500 MG in DEXTROSE 5% IN WATER 250 ML 250 MG IV (11:20)
[2024-02-17 11:25] LABS: Magnesium 1.6 mg/dL (1.6-2.3)
[2024-02-17] MEDS: POTASSIUM CHLORIDE 20 MEQ TAB 40 MEQ PO ×2 (11:25→17:40)
[2024-02-17] MEDS: SODIUM CHLORIDE 0.9% FLUSH 10 ML IV (21:01)
[2024-02-18] VITALS (12 sets, daily range): BP systolic 147–177; BP diastolic 89–97; PULSE 73–99; RESP 16–19; TEMP 36.6–37.2; O2SAT 89–95
[2024-02-18 05:35] LABS: Alanine Aminotransferase 32 IU/L (<50); Albumin 3.6 g/dL (3.5-5.0); Albumin Globulin Ratio 1.3 (1.0-2.8); Alkaline Phosphatase 78 U/L (38-126); Aspartate Aminotransferase 35 IU/L (17-59); Bilirubin Total 0.7 mg/dL (0.2-1.3); Blood Urea Nitrogen 31 mg/dL (9-20); Calcium 8.8 mg/dL (8.4-10.2); Carbon Dioxide 25 mmol/L (22-32); Chloride 104 mmol/L (98-107); Estimated Glomerular Filt Rate > 60 mL/min (>60); Globulin 2.8 g/dL (1.7-4.1); Glucose 96 mg/dL (80-110); HEMOLYSIS < 15 (0-50); Potassium 3.5 mmol/L (3.4-5.1); Sodium 137 mmol/L (137-145); Total Protein 6.4 g/dL (6.3-8.2)
[2024-02-18 05:47] LABS: Troponin I 0.076 ng/mL (0.01-0.034)
[2024-02-18 06:25] LABS: NT-proBNP (BNP-Adult 18+) 1490 pg/mL (<125)
[2024-02-18] MEDS: carvediloL 3.125 MG TABLET 6.25 MG PO (08:02)
[2024-02-18] MEDS: LOSARTAN 25 MG TABLET PO (08:02)
[2024-02-18] MEDS: FUROSEMIDE 20 MG/2 ML VIAL IV (08:02)
[2024-02-18] MEDS: ENOXAPARIN 40 MG/0.4 ML SYRINGE SUBCUT (08:02)
[2024-02-18] MEDS: SODIUM CHLORIDE 0.9% FLUSH 10 ML IV (08:07)
[2024-02-18] MEDS: carvediloL 12.5 MG TABLET PO (10:34)
[2024-02-18] MEDS: cefUROXime 250 MG TABLET 500 MG PO (10:47)
--- NOTE | 2024-02-18 11:43 | P.DS_ITS ---
History of Present Illness History of Present Illness Chief complaint: blood pressure high 220/148 Narrative: Patient is a 68-year-old male patient of who I am cross covering for who presents with primarily cough. Patient with approximately a one-week history of cough which seems to be worsening. Seems to get worse at night. Nonproductive. Mild shortness of breath. Feels as if it was getting worse over the last 24 hours. Got worse at night. Maybe felt a little short of breath but primarily he was coughing so much he threw up. So he came to the emergency room. Patient has a history of significantly elevated blood pressure. Which has not been controlled. Apparently they have used several different medicines. Was last put on losartan/hydrochlorothiazide. Although he has not sure if he was taking it. He has had no chest pain. His blood pressures have been running in the 170s over 100 at home. Apparently has been like this for years. Feels like he was told that sometimes people just run high. Has been working with his primary care doctor to get this improved. Without other changes. He has had no headaches, no visual symptoms, no numbness or tingling no arm issues. 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 Has otherwise been feeling well. Patient's primary shows been his pulmonary issues with nonproductive cough. Patient apparently has had pneumonia in the past. But has not had follow-up chest x-rays. Patient has had no orthopnea classically or PND. No edema in his legs. Or other changes. Patient is a never smoker. Past medical history is significant for hypertension no other significant issues. Past surgical history is negative. Discharge Providers Provider Date of admission: 02/16/24 02:49 Discharge Date: 02/18/24 Primary care physician: Niles Fuchs MD Consults: 02/16/24 02:48 Consult to Physician Stat Comment: Consulting Provider: Glen Medina Reason for consultation: admission Has provider been notified: No Consult to Physician Stat Comment: Consulting Provider: Niles Fuchs Reason for consultation: admission Discharge provider: Glen Medina MD Summary Hospital Course Discharge Diagnosis: Congestive heart failure left heart systolic Right-sided pneumonia Hypokalemia Elevated troponin Hypertension crisis Hospital Course: Congestive heart failure left heart systolic. Patient was moved to the hospital with presumed orthopnea although he never really got that he had a marked elevation in his BNP. He was aggressively diuresed and over the 1st day 5 L of fluid were removed. He was then placed on 20 a day. And seemed to be doing well. Output was still good. Echo was obtained and EF was between 25 and 30%. Multiple areas of decreased function were noted. Patient is troponin was also elevated and discussion with personal finance instructor who felt this was all related to his congestive heart failure. After discussion with personal finance instructor we had diuresed and started on losartan and his recommendation was Coreg after seeing the echo. He was started on 6.25 b.i.d. and then was raised to 12.5 b.i.d. on day of discharge. Patient was feeling much better. Had no real complaints. Never had chest pain. He will be seen on Tuesday. For stat referral to Dr. Bautista. Dr. Hernandez is aware of him and would like to see him soon. Hopefully this will be set up as outpatient. Right-sided pneumonia. Patient was positive for parainfluenza virus. Question whether this was not not a cause of his pneumonia. Usually that shows bilateral infiltrates. Cough was persistent mostly at night which was his main complaint when he presented with some production. Patient had no white count. No fever. And otherwise respiratory status look good. He was started on Rocephin and Zithromax on admission for probable pneumonia. Will be continued on Zithromax and Ceftin as outpatient. Patient will be followed up with primary care provider early next week. Hypokalemia. Patient was noted to be hypokalemic early in his admission. On day 1. Per pharmacy protocol it was replaced without significant issue is 3.5 on day of discharge. He will need to be checked early next week and potassium ordered if needed. Elevated troponin. Patient had elevated troponin through the course of the 1st 24 hours and then was beginning to decrease. I discussed with Dr. Hernandez about this. He had ST depressions in 1 and aVL and elevation in 3 which slowly improved but did not resolve during his admission. Dr. Hernandez felt this was not an acute ischemic event felt it was more related to his congestive heart failure and blood pressure. Patient was asymptomatic with no chest pain. He seems to be feeling great today. And we will be discharged to home for follow-up. May need catheterization depending on what Dr. Bautista are feels his response to treatment is. Discussed with the patient. Hopefully will be seeing Dr. Hernandez early next week Hypertension crisis. Patient was admitted with blood pressures in the 170s over 110. Apparently he was recently started on losartan hydrochlorothiazide but was not sure he was taking it yet. He was began on losartan secondary is probable congestive heart failure. Twenty-five b.i.d.. Echo showed severe congestive heart failure and that was discussed. We began Coreg along with his losartan and that was increased on day of discharge. Patient was tolerating both medication. His blood pressure was moving into more normal numbers with averages probably 150 on discharge systolic. But he was feeling well without change. This will need to be adjusted as outpatient. Certainly room for losartan to go up. Will need to be aggressively managed. Patient understands goals discussed. Probably his blood pressure is the cause of his congestive heart failure we will have to see how that goes. Exam Vital Signs (past 8 hours): - 02/18/24 04:00 02/18/24 05:13 02/18/24 07:00 Temperature 97.8 F Pulse Rate 74 78 Respiratory Rate 19 18 Blood Pressure 153/89 H Pulse Oximetry 93 95 Oxygen Delivery Method Room Air Oxygen Flow Rate 0 02/18/24 08:50 Temperature 98.9 F Pulse Rate 81 Respiratory Rate 16 Blood Pressure 177/97 H Pulse Oximetry 95 Oxygen Delivery Method Oxygen Flow Rate 0 Oxygen Delivery Method Room Air Oxygen Flow Rate 0 Narrative Exam Narrative: Alert elderly male sitting up smiling in no acute respiratory distress. HEENT exam is normal neck supple without adenopathy lungs with diffuse mild wheeze occasional heart is regular rate and rhythm without murmurs clicks rubs or gallops abdomen is benign extremities appear normal Objective Labs 02/17/24 04:06 02/18/24 04:08 Labs: Laboratory Results - last 24 hr 02/18/24 04:08 Sodium 137 Potassium 3.5 Chloride 104 Carbon Dioxide 25 BUN 31 H Creatinine 1.24 Estimated GFR > 60 BUN/Creatinine Ratio 25.0 H Glucose 96 Calcium 8.8 Total Bilirubin 0.7 AST 35 ALT 32 Alkaline Phosphatase 78 Troponin I 0.076 H NT-Pro-B Natriuret Pep 1490 H Total Protein 6.4 Albumin 3.6 Globulin 2.8 Albumin/Globulin Ratio 1.3 PFSH Medical History Post-COVID syndrome Surgical History No significant past surgical history Family History Grandfather Myocardial infarction Mother Digestive system disease Father Old age Social History household members: children Smoking Status: Never smoker alcohol intake: current Discharge Assessment & Plan Assessment and Plan Assessment: Improved Plan of Treatment: Discharge home with follow-up with Tuesday with primary care and hopefully cardiology this week Discharge Plan Discharge Plan Patient Disposition: Home Discharge orders & Medications Prescriptions: New carvedilol 12.5 mg Tablet 12.5 mg PO BID Qty: 60 1RF losartan 25 mg Tablet 25 mg PO BID Qty: 60 1RF azithromycin 250 mg tablet 250 mg PO DAILY 4 Days Qty: 4 0RF Rx Instructions: start on day 2 of therapy cefuroxime axetil 500 mg tablet 500 mg PO BID Qty: 14 0RF furosemide 20 mg tablet 20 mg PO DAILY Qty: 90 1RF Discontinued furosemide 40 mg tablet 40 mg PO DAILY losartan-hydrochlorothiazide 50-12.5 mg tablet 1 tab PO DAILY metoprolol succinate 50 mg tablet extended release 24 hr 50 mg PO DAILY Qty: 30 0RF Follow up/Referrals: Julieta Bautista MD [Physician] - ( cardiology should be calling to make appointment hopefully this week) Niles Fuchs MD [Primary Care Provider] - 02/20/24 (Patient to call Tuesday morning for appointment Tuesday) Discharge Health Status Multidrug resistant organism: No MDRO Diet/Activity/Treatments Diet: Diet as Tolerated and Low-sodium Visit Report/Discharge Packet Instructions: DI for Heart Failure Stand Alone Forms: Congestive Heart Failure, Patient Portal/API Discharge Data Primary Care Provider: Niles Fuchs
--- NOTE | 2024-02-18 14:39 | CM.DPC ---
DCP Discharge Home Per MD, pt's Echo showed EF 25-30% but pt medically stable to discharge home today with f/u appointment with PCP on Tuesday and urgent f/u with [employer] Lily this coming week. Family bedside and confirms agreeable to transport pt home. Per RN, discharge instructions provided and no concerns noted. AVTAR Jamil
== END 2024-02-18 10:59 | disposition home or self-care (01) | DRG 193 ==
LOC: ED 02:42 → AC 02:50 → ICU 03:06
PROVIDERS: Family Medicine; Admitting Provider Family Medicine; Emergency Provider Emergency Medicine; PCP Family Medicine; Referring Provider Emergency Medicine; Visit Provider Family Medicine
DX: J12.2 Parainfluenza virus pneumonia (principal); I50.23 Acute on chronic systolic (congestive) heart failure; I16.9 Hypertensive crisis, unspecified; I11.0 Hypertensive heart disease with heart failure; E87.6 Hypokalemia; R79.89 Other specified abnormal findings of blood chemistry
CPT/HCPCS: 36415; 71045; 80048; 80053; 82550; 83690; 83735; 83880; 84484; 85025; 85610; 85730; 87633; 87797; 93005; 93306; 96365; 96368; 96375; 99284; 99291; J0360; J0696; J1650; J1940